=== PATIENT | male | born 1975 | race Caucasian/White ===

== ENCOUNTER 2024-03-16 23:48 | Emergency (ER) | payer MEDICAID, SELFPAY ==
[2024-03-16 23:55] VITALS: BP 199/137; PULSE 88; RESP 18; TEMP 37.3; O2SAT 97
[2024-03-17 00:48] VITALS: BP 194/133; PULSE 90
[2024-03-17] MEDS: hydrALAZINE HCL 25 MG TABLET PO ×2 (00:48→02:02)
--- NOTE | 2024-03-17 00:54 | EDNOTE_ITS ---
ED Medical Clearance RME/HPI General Chief complaint: Medical Clearance Stated complaint: CLEARANCE Time Seen by Provider: 03/17/24 00:04 Source: patient and police Arrival date/time: 03/16/24 23:48 Mode of arrival: ambulatory Limitations: no limitations RME / HPI RME / HPI Narrative: Dr. Garcia?s Main ED Evaluation: This is a 48-year-old male with a history of hypertension, presenting for medical clearance prior to incarceration. He was brought in by law enforcement following a blood pressure reading of 198/122 at the halfway. He admits that he is not compliant with his medications. The patient is known to this facility for prior visits related to his elevated hypertension. He denies any other associated symptoms, such as chest pain, shortness of breath, or headache, and has no other current medical complaints. Related Information Home Medications ?Medication ?Instructions ?Recorded ?Confirmed No Known Home Medications 01/17/23 01/17/23 Allergies Allergy/AdvReac Type Severity Reaction Status Date / Time No Known Allergies Allergy Verified 01/17/23 11:33 Review of Systems Review of Systems Systems Reviewed: All systems reviewed, normal except as documented Past Medical History Past Medical History NEUROLOGIC: Negative Neurological Disorders CARDIAC: Positive Hypertension; Negative Cardiac Disorders or Congestive Heart Failure RESPIRATORY: Negative Chronic Obstructive Pulmonary Disease (COPD) GASTROINTESTINAL: Negative Gastrointestinal Disorders GENITOURINARY: Negative Genitourinary Disorders or Renal Disease MUSCULOSKELETAL: Negative Musculoskeletal Disorders ENDOCRINE: Negative Endocrine Disorders, Diabetes Mellitus Type 1 or Diabetes Mellitus Type 2 HEMATOLOGIC: Negative Blood Disorders OTHER HISTORY: Negative Autoimmune Disease Surgical History SURGICAL: Negative Cardiac Surgery, Endocrine Surgery, Ear Surgery, Abdominal Surgery or Neurologic Surgery Social History SMOKING STATUS: Never smoker ED Exam Narrative Physical exam: GENERAL APPEARANCE: AxOx4, generally well-appearing, no acute distress. The patient exhibits a childlike demeanor during the evaluation. HEENT: NC, AT. MMM. EOMI, clear conjunctiva, oropharynx clear. NECK: Supple without lymphadenopathy. No stiffness or restricted ROM. HEART: Normal rate and regular rhythm, normal S1/S1, no m/r/g LUNGS: CTAB, moving air well. No crackles or wheezes are heard. ABDOMEN: Soft, nontender, nondistended with good bowel sounds heard. BACK: No midline C/T/L spine pain or deformity, No CVAT, no obvious deformity. EXTREMITIES: Without cyanosis, clubbing or edema. MUSCULOSKELETAL: FROM of all major joints, no chest tenderness NEUROLOGICAL: Grossly nonfocal. Alert and oriented, moving all 4 extremities. CN not formally tested but appear grossly intact. Observed to ambulate with normal gait. Skin: Warm and dry without any rash. General Limitations: Present no limitations Course Quality Measures none Orders Category Date Time Status hydrALAZINE HCL [Apresoline] Med 03/17/24 00:43 Discontinued 25 mg PO X1 ONE hydrALAZINE HCL [Apresoline] Med 03/17/24 01:58 Discontinued 25 mg PO X1 ONE Reevaluation(s) Reevaluation #1: Patient admits to last use of methamphetamine approximately 2 months ago. Time: 01:55 Vital Signs Vital signs: Vital Signs Temperature 99.2 F 03/16/24 23:55 Pulse Rate 88 03/16/24 23:55 Respiratory Rate 18 03/16/24 23:55 Blood Pressure 199/137 H 03/16/24 23:55 Pulse Oximetry (%) 97 03/16/24 23:55 Oxygen Delivery Method Room Air 03/16/24 23:55 Medical Clearance MDM Narrative MDM Narrative:: Scribe Attestation: ITrin[place] am scribing for and in the presence of Dr. Garcia. Provider Notation: Although this document has been carefully reviewed, there may still be some phonetic and other typographical errors. These errors are purely grammatical due to imperfections in the software program and should not be construed in any way to compromise the substance of the patient's medical care during this visit. Patient data External records reviewed:: [facility] previous records Clinical information provided by:: patient and law enforcement Social determinants that could affect healthcare access:: none (incarcerated) Patient has the following chronic illnesses:: See PMH above How is presenting disease/condition affected by chronic disease/condition?: exacerbated by Evaluation data The following diagnostics were reviewed and interpreted by me:: other (specify) (none) Lab and/or radiology exams considered but not ordered:: None Interpretation Summary: None Medications / Prescriptions Medications or Prescriptions considered but not ordered:: None Medication administrations:: Medication Administration History Discontinued Medications Hydralazine HCl (Hydralazine Hcl 25 Mg Tablet) 25 mg PO X1 ONE Stop: 03/17/24 00:44 Last Admin: 03/17/24 00:48 Dose: 25 mg Documented By: MEE Hydralazine HCl (Hydralazine Hcl 25 Mg Tablet) 25 mg PO X1 ONE Stop: 03/17/24 01:59 Last Admin: 03/17/24 02:02 Dose: 25 mg Documented By: MEE As above Consultations Consultation(s) initiated? (list below): No Diagnosis Medical Clearance Differential Diagnosis: other (Hypertension, Hypertensive Urgency, Hypertensive Emergency) Most likely diagnosis given after review of the tests above:: Hypertension Admission Indicated Admission indicated?: not indicated Admission Request Was there a request for admission?: No Disposition Plan Disposition Plan: Discharge Discharge Attestation Discharge Attestation: The patient and all family members were given an opportunity to ask questions and understood the discharge instructions. Discharge instructions specifically effects, indications for sooner follow up or return to the emergency department, and the expected course of current diagnosis. Patient condition: Stable Discharge Plan Plan Patient Disposition: HOME (Self Care) Prescriptions/Referrals Prescriptions/Med Rec: No Action No Known Home Medications Referrals: [facility] [Provider Group] - In 1 week [facility] [Provider Group] - In 1 week [facility] [Outside] - In 1 week No Primary/Family,Physician [Primary Care Provider] - In 1 week Problem List Clinical Impression: Hypertension Patient/Caregiver Discharge Instructions Education Materials: ED Hypertension, Established Additional Instructions: It would be important to establish a primary care provider to further manage her blood pressure. Resources are provided on your discharge papers. Please establish first visit as soon as possible. You can return to the emergency department if you notice any issues or concerns. Print Language: Jordanian Stand Alone Forms: Cynthia Award Info., Patient Portal Info Letter
[2024-03-17 02:02] VITALS: BP 179/100; PULSE 189
[2024-03-17 02:09] VITALS: BP 179/100; PULSE 86; RESP 18; O2SAT 94
[2024-03-17 02:54] VITALS: BP 154/101; PULSE 88; RESP 18; TEMP 36.6; O2SAT 98
== END 2024-03-17 02:55 | disposition home or self-care (01) ==
PROVIDERS: Emergency Provider Emergency Medicine
DX: Z02.89 Encounter for other administrative examinations (principal); I10 Essential (primary) hypertension
CPT/HCPCS: 99282; A9270

== ENCOUNTER 2024-04-17 10:40 | Inpatient (IN) | payer MEDICAID, SELFPAY ==
[2024-04-17] VITALS (10 sets, daily range): BP systolic 133–205; BP diastolic 91–129; PULSE 63–80; RESP 16–97; TEMP 36.6–36.9; O2SAT 97–100; BMI 30.6
--- NOTE | 2024-04-17 11:01 | EKG_ITS ---
[facility] Test Date: 2024-04-17 Pat Name: AP DE LA ROSA Department: Room: - Gender: Male [employer]: : 1975 Requested By: Elías Garcia Order Number: [id number] Reading MD: Elías Garcia Measurements Intervals [place] Rate: 69 P: 54 DE: 151 QRS: -5 QRSD: 101 T: 179 QT: 417 QTc: 450 Interpretive Statements SINUS RHYTHM POSSIBLE LEFT ATRIAL ENLARGEMENT [-0.1mV P-WAVE IN V1/V2] LEFT VENTRICULAR HYPERTROPHY AND ST-T CHANGE [VOLTAGE CRITERIA PLUS ST/T ABNORMALITY] Compared to ECG 07/31/2023 10:14:00 No significant changes /store/S0/[id number]/ecg/[id number].pdf
--- NOTE | 2024-04-17 11:17 | PD.EDAMS ---
Altered Mental Status RME/HPI General Chief Complaint: Altered Mental Status Stated Complaint: HEART PROBLEMS Time Seen by Provider: 04/17/24 11:26 Arrival date/time: 04/17/24 10:40 Limitations: no limitations RME / HPI RME / HPI narrative: DR. ESCOBAR MAIN ED EVALUATION: 48 year old male with past medical history significant for hypertension and methamphetamine abuse presents to the Emergency Department [facility] with complaints of heart problems and altered mental status. Patient does not remember anything but denies any headache or chest pain. Limited history due to altered mentation. Related Data Home Medications ?Medication ?Instructions ?Recorded ?Confirmed No Known Home Medications 01/17/23 01/17/23 Allergies Allergy/AdvReac Type Severity Reaction Status Date / Time No Known Allergies Allergy Verified 01/17/23 11:33 Review of Systems Review of Systems ROS Unobtainable: unobtainable due to mental status Past Medical History Past Medical History CARDIAC: Positive Hypertension Social History SMOKING STATUS: Former smoker SUBSTANCE USE: methamphetamine ALCOHOL: Never ED Exam General Limitations: Present no limitations General appearance: Present alert and other (patient is alert awake, but confused in his answers, in no distress, lying down comfortably. Patient has good eye contact. Patient is cooperative.) Head Head exam: Present atraumatic, normocephalic and normal inspection Eye Eye exam: Present normal appearance, PERRL and EOMI ENT ENT exam: Present normal exam, normal oropharynx and mucous membranes moist Neck Neck exam: Present normal inspection, full ROM and trachea midline Chest Chest inspection: Present normal inspection and symmetric chest wall rise Respiratory Respiratory exam: Present normal lung sounds bilaterally Cardiovascular Cardiovascular exam: Present regular rate, normal rhythm and normal heart sounds Abdominal Exam Abdominal exam: Present soft and normal bowel sounds Extremities Exam Extremities exam: Present normal inspection and full ROM Back Exam Back exam: Present normal inspection and full ROM Neurological Exam Neurological exam: Present alert, oriented X3 and CN II-XII intact Psychiatric Psychiatric exam: Present normal affect and normal mood Skin Skin exam: Present warm, dry, intact and normal color Course Course Course Narrative: 1800: Patient was signed out to Dr. Gordon. Past medical, surgical, social and family history reviewed. Vitals and home medications reviewed. Results and treatment plan discussed. They will assume the care of the patient at this time and will follow the patient, pending LP results. Quality Measures none Orders Category Date Time Status EKG (ED ONLY) *Do not use* NOW Care 04/17/24 11:01 Completed Lumbar Puncture set up NOW Care 04/17/24 14:[address] head/brain wo con Stat Exams 04/17/24 11:22 Completed EKG (ED Only) Stat Exams 04/17/24 11:01 Draft ABG [Arterial Blood Gas] Stat Lab 04/17/24 15:26 Completed Alcohol, Blood Medical Stat Lab 04/17/24 11:41 Completed CBC Stat Lab 04/17/24 11:41 Completed CMP [Comprehensive Metabolic Panel] Stat Lab 04/17/24 11:41 Completed CSF Culture and Gram Stain Stat Lab 04/17/24 18:00 Results Cell Count w Diff, CSF Stat Lab 04/17/24 18:00 Completed Drug Screen,Urine Stat Lab 04/17/24 13:09 Completed Glucose,CSF Stat Lab 04/17/24 18:00 Completed Lactate (Lactic Acid) Stat Lab 04/17/24 11:41 Completed Procalcitonin Stat Lab 04/17/24 11:41 Completed Protein Total,CSF Stat Lab 04/17/24 18:00 Completed Urinalysis Stat Lab 04/17/24 13:09 Completed Labetalol IV [Trandate IV] Med 04/17/24 12:16 Discontinued 10 mg IVP X1 ONE Labetalol IV [Trandate IV] Med 04/17/24 11:21 Discontinued 20 mg IVP X1 ONE Vital Signs Vital signs: Vital Signs Temperature 97.8 F 04/17/24 10:59 Pulse Rate 72 04/17/24 10:59 Respiratory Rate 16 04/17/24 10:59 Blood Pressure 205/106 H 04/17/24 10:59 Pulse Oximetry (%) 99 04/17/24 10:59 Oxygen Delivery Method Room Air 04/17/24 10:59 Procedures -ED EKG Interpretation #1: Date of EK04/17/24 Time of EK:03 Rate: 69 Interpretation: Interpreted by me Additional EKG comment: sinus rhythm, rate 69, normal intervals, normal axis, lateral T wave inversions Altered Mental Status MDM Narrative MDM Narrative:: I, Tereza Taylor am scribing for and in the presence of Dr. Escobar. Patient data External records reviewed:: [facility] previous records (Reviewed last ED visit dated 03/17/24, discharged with the following: Hypertension) and EMS form Clinical information provided by:: patient and EMS Social determinants that could affect healthcare access:: substance use (methamphetamine) Patient has the following chronic illnesses:: Hypertension How is presenting disease/condition affected by chronic disease/condition?: exacerbated by Evaluation data The following diagnostics were reviewed and interpreted by me:: lab results, radiology exam(s) and EKG tracing(s) Lab and/or radiology exams considered but not ordered:: none Interpretation Summary: Procedure(s): CT head/brain wo con Accession Number(s): [id number] cc: Elías Escobar MD; Nathan Lorenzo MD; NO PRIMARY/FAMILY,PHYSICIAN~ Examination: CT brain head without contrast. 2-D sagittal coronal reconstructions Date and time of exam:April 17, 2024 1123 hours INDICATIONS: Altered mental status today COMPARISON: January 17, 2023 CTDI: vol (mGy):58.7 DLP: (mGycm):1180 Technique: Multiple CT axial sections of the brain have been obtained, 5 mm slice thickness. Contrast has not been administered. 2-D sagittal, coronal reconstructions have been obtained Low dose protocols were performed. One or more of the following dose reduction techniques were used; automated exposure control, adjustment of the mA and/or KV according to patient size, use of iterative reconstruction technique. Findings: No significant ventricular enlargement. Suspicious for 14 mm area of acute edema in the left parietal lobe axial image 19 Intra-axial or extra-axial hemorrhage density is not seen. No mass effect or midline shift Basal cisterns are not remarkable. Fourth ventricle is midline. Cranial vault intact. Impression: Negative for acute hemorrhage, mass effect or midline shift Suspicious for acute infarct in the left parietal white matter axial image 19 Recommend brain MRI MRA stroke protocol follow-up Dictated By: Nathan Lorenzo MD Medications / Prescriptions Medications or Prescriptions considered but not ordered:: none Medication administrations:: Medication Administration History Acetaminophen (Acetaminophen 325 Mg Tablet) 650 mg PO Q6HR PRN PRN Reason: Mild Pain (1-3) & Fever >101 Stop: 05/17/24 21:18 Aspirin (Aspirin Ec 81 Mg Tabec) 81 mg PO QDAY GUS Stop: 05/18/24 08:59 Heparin Sodium (Porcine) (Heparin Sod Inj 5000 Unit/Ml Vial) 5,000 unit SC Q12H GUS Stop: 05/02/24 08:59 Ondansetron HCl (Ondansetron Inj 2 Mg/Ml Inj 2 Ml) 4 mg IV Q6H PRN; Protocol PRN Reason: NAUSEA OR VOMITING Stop: 05/17/24 19:38 Pantoprazole Sodium (Pantoprazole Inj 40 Mg Vial) 40 mg IVP QDAY REPLACED BY [facility] Stop: 05/18/24 08:59 Discontinued Medications Aspirin (Aspirin 325 Mg Tablet) 325 mg PO X1 ONE Stop: 04/17/24 19:49 Last Admin: 04/17/24 20:07 Dose: 325 mg Documented By: MATEUSZ Labetalol HCl (Labetalol Inj 5 Mg/Ml Vial 20 Ml) 20 mg IVP X1 ONE Stop: 04/17/24 11:22 Last Admin: 04/17/24 11:41 Dose: 20 mg Documented By: MATEUSZ Labetalol HCl (Labetalol Inj 5 Mg/Ml Vial 20 Ml) 10 mg IVP X1 ONE Stop: 04/17/24 12:17 Last Admin: 04/17/24 12:35 Dose: 10 mg Documented By: MATEUSZ see above Consultations Consultation(s) initiated? (list below): Yes Consultation #1 (Physician, Specialty, Details): Discussed test HPI, PMHx, lab, radiology results and/or management with Dr. Puckett. Discussed the left parietal ischemic infarct but after reviewing symptoms and CT findings, the lesions are not consistent with exam. Dr. Puckett recommends further testing including a lumbar puncture. Then, if nothing we can admit for observation and order a MRI. Time: 14:00 Diagnosis Differential diagnosis altered mental status: alcoholic intoxication, altered mental status and other (hypertensive urgency, encephalopathy, drug intoxication) Most likely diagnosis given after review of the tests above:: No official diagnoses at this time, still pending diagnostic tests. Patient signout to the shift boss provider. Admission Indicated Admission indicated?: indicated Explain why admission is indicated or not indicated:: Pending LP results. Admission Request Was there a request for admission?: No Disposition Plan Disposition Plan: other (specify) (Patient signout to the shift boss provider, pending LP results. ) Discharge Plan Plan Patient Disposition: Admit Acute Care w/in Hospital Problem List Clinical Impression: Encephalopathy
--- NOTE | 2024-04-17 11:22 | XR_ITS ---
Examination: CT brain head without contrast. 2-D sagittal coronal reconstructions Date and time of exam:April 17, 2024 1123 hours INDICATIONS: Altered mental status today COMPARISON: January 17, 2023 CTDI: vol (mGy):58.7 DLP: (mGycm):1180 Technique: Multiple CT axial sections of the brain have been obtained, 5 mm slice thickness. Contrast has not been administered. 2-D sagittal, coronal reconstructions have been obtained Low dose protocols were performed. One or more of the following dose reduction techniques were used; automated exposure control, adjustment of the mA and/or KV according to patient size, use of iterative reconstruction technique. Findings: No significant ventricular enlargement. Suspicious for 14 mm area of acute edema in the left parietal lobe axial image 19 Intra-axial or extra-axial hemorrhage density is not seen. No mass effect or midline shift Basal cisterns are not remarkable. Fourth ventricle is midline. Cranial vault intact. Impression: Negative for acute hemorrhage, mass effect or midline shift Suspicious for acute infarct in the left parietal white matter axial image 19 Recommend brain MRI MRA stroke protocol follow-up
[2024-04-17] MEDS: LABETALOL INJ 5 MG/ML VIAL 20 ML 20 MG IVP (11:41)
[2024-04-17 11:54] LABS: Basophils # (Auto) 0.1 Thou/mm3 (0.0-0.2); Basophils % (Auto) 1 % (0-2.5); Eosinophils # (Auto) 0.5 Thou/mm3 (0.0-0.5); Eosinophils % (Auto) 6 % (0-10); Hematocrit 43.2 % (41.0-53.0); Hemoglobin 14.7 g/dL (13.5-16.0); Immature Granulocytes % (Auto) 0 % (0-0); Immature Granulocytes Auto 0.02 Thou/mm3 (0.00-0.00); Lymphocytes # (Auto) 2.2 Thou/mm3 (1.0-4.8); Lymphocytes % (Auto) 25 % (10-50); Mean Corpuscular Hemoglobin 27.8 pg (25.0-35.0); Mean Corpuscular Volume 82 fL (80-100); Monocytes # (Auto) 0.6 Thou/mm3 (0.0-0.8); Monocytes % (Auto) 7 % (0-12); Neutrophils # (Auto) 5.3 Thou/mm3 (1.8-7.7); Neutrophils % (Auto) 61 % (37-80); Nucleated Red Blood Cell % 0 /100 WBC (0); Platelet Count 290 Thou/mm3 (140-440); RDW Standard Deviation 37.7 fL (35.1-43.9); Red Blood Count 5.29 Miln/mm3 (4.50-5.90); White Blood Count 8.7 Thou/mm3 (3.8-10.6)
[2024-04-17 12:33] LABS: Alanine Aminotransferase 14 U/L (10-49); Albumin, Serum 4.3 gm/dL (3.5-5.0); Albumin/Globulin Ratio 1.4 (1.2-2.2); Alcohol, Blood Medical < 3.0 mg/dL (0-10.0); Alkaline Phosphatase 106 U/L (46-116); Anion Gap 9 (7-16); Aspartate Amino Transferase 22 U/L (0-34); BUN/Creatinine Ratio 16 Ratio (12-20); Bilirubin,Total 0.7 mg/dL (0.3-1.2); Blood Urea Nitrogen 21 mg/dL (9-23); Calcium 9.5 mg/dL (8.3-10.6); Calcium (Corrected) 9.5 mg/dL (8.5-10.1); Carbon Dioxide 29.2 mMol/L (20.0-31.0); Chloride 100 mMol/L (98-107); Creatinine (Component) 1.3 mg/dL (0.6-1.3); Estimated Creatinine Clearance 90.4 mL/min (>60); Globulin 3.1 gm/dL (2.3-3.5); Glucose 88 mg/dL (74-106); Osmolality,Calculated 277 (275-295); Potassium 3.5 mMol/L (3.4-5.1); Procalcitonin 0.09 ng/ml (0.0-0.49); Sodium 138 mMol/L (136-145); Total Protein 7.4 gm/dL (5.7-8.2); eGFR > 60 See Note
[2024-04-17] MEDS: LABETALOL INJ 5 MG/ML VIAL 20 ML 10 MG IVP (12:35)
[2024-04-17 13:12] LABS: Collection Type, Urine Clean Catch
[2024-04-17 13:29] LABS: Bilirubin,Urine Negative (Negative); Blood,Urine Negative (Negative); Clarity,Urine Clear (Clear/Hazy); Color,Urine Yellow (Lt Yel-Yel); Glucose, Urine Negative (Negative); Hyaline Casts,Urine < 1 /hpf (0-1); Ketones,Urine Negative (Negative); Leukocyte Esterase,Urine Positive (Negative); Nitrite,Urine Negative (Negative); Protein,Urine Trace (Neg - Trace); RBC,Urine 3 /hpf (0-3); Specific Gravity,Urine 1.023 (1.001-1.035); Squamous Epithelial Cell,Urine < 1 /hpf (0-5); Urobilinogen,Urine Negative mg/dL (0.0-1.0); WBC,Urine 22 /hpf (0-5)
[2024-04-17 13:38] LABS: Amphetamine/Methamp Scrn,U Negative (Negative); Barbiturate Screen,Urine Negative (Negative); Benzodiazepines Screen,Urine Negative (Negative); Benzoylecgonine Screen, Ur Negative (Negative); Fentanyl Screen,Urine Negative (Negative); Opiate Screen,Urine Negative (Negative); THC Screen,Urine Positive (Negative)
[2024-04-17 15:32] LABS: Base Excess 4 (-3-3); HCO3 29 mEq/L (20-26); Inspired Oxygen, FIO2 21 %; O2 Saturation 94 % (91-98); PCO2 44 mmHg (32.0-48.0); PO2 65 mmHg (83-108); Puncture Site Left Radial; pH, Arterial 7.43 (7.35-7.45)
[2024-04-17 15:33] LABS: Allen Test Not Performed
--- NOTE | 2024-04-17 17:16 | PD.EDADDENDU ---
Emergency Room Addendum Addendum Narrative: Procedures -ED Lumbar Puncture Time Out Performed: Yes Patient Position: right lateral decubitus Skin Prep: Povidone-Iodine 1% Local Anesthetic: lidocaine 1% Amount of anesthesia used (mL): 4 Interspace Used: L4-L5 Opening Pressure (cmH20): 16 Fluid Initially Obtained: clear (very slight blood-tinge) Additional Comments: Surgical cap, mask, and sterile gloves were worn throughout the procedure. The patient was placed in the right lateral decubitus position with help from medical staff. The area was cleansed and draped in usual sterile fashion using iodine scrub. Anesthesia was achieved with 1% lidocaine. A 20-gauge 3.5-inch spinal needle was placed in the L4-L5 lumbar interspace. On the 2nd attempt, clear with very slightly blood tinged colored cerebral spinal fluid was obtained. The opening pressure was 16 cm H20. CSF was collected into 4 tubes. These were sent for the usual tests, including 1 tube to be held for further analysis if needed. A sterile bandaid was placed over the puncture site. The patient had no immediate complications and tolerated the procedure well. Estimated blood loss was 1 ml. Procedure was completed under the supervision of the ED attending, Dr. Garcia. Marlin Boo PGY-2 Internal Medicine
--- NOTE | 2024-04-17 18:00 | PD.EDADDENDU ---
Emergency Room Addendum Addendum Narrative: 1800: Care assumed from Dr. Garcia, the previous shift emergency physician. Past medical, surgical, social and family history reviewed. Vitals and home medications reviewed. Results and treatment plan discussed. I will assume the care of the patient at this time and will follow the patient, pending LP results. Please refer to the emergency department record for history and examination from initial visit. 1950: Discussed case with [Dr. Monroe] from Hospitalist service regarding admission. Discussed patients ED course, exam findings, labs, and radiology results. The Hospitalist [agrees] to accept the patient for admission.
[2024-04-17 19:07] LABS: Glucose,CSF 67 mg/dL (40-70); Protein Total,CSF 86 mg/dL (8-32)
[2024-04-17 19:39] LABS: CSF Red Blood Cell 0 /cmm; CSF White Blood Cell 1 /cmm
[2024-04-17 19:43] LABS: CSF Cell Count Tube # Tube # 4
[2024-04-17 19:44] LABS: CSF Color Colorless (Colorless); CSF Polynuclear WBC 0 %; CSF, Appearance Clear (Clear)
[2024-04-17 19:45] LABS: CSF Gram Stain Alert Gram Stain Completed
--- NOTE | 2024-04-17 19:49 | ESHP_ITS ---
Documentation for date of: 04/17/24 [facility] History of Present Illness Chief complaint: Altered mental status History of present illness: Mr. Cheek is a 48-year-old male with past medical history of hypertension and methamphetamine use who was BIBA to [facility] on 04/17/2024 with chief complaint of altered mental status. On initial evaluation in ED patient reported he does not remember anything and was not able to provide much history. On presentation case was discussed with neurologist who recommended lumbar puncture and MRI brain. Currently at bedside patient alert and oriented x 3, able to recall events leading up to hospitalization, complains of some numbness in the right leg, otherwise has no current complaints. CT scan of head in ED showed possible acute infarct in left parietal white matter, was negative for acute hemorrhage mass effect or midline shift. ED Course: ED Vitals: On presentation in ED BP 205/106, pulse 72, RR 16, temp 97.8, O2 sat 99 on room air ED Labs: ED labs significant for RBC 5.29, hemoglobin 14.7, WBC 8.7, platelet 2 90,000 ABG pH 7.43, pCO2 44 and CMP shows sodium 138, potassium 3.5, chloride 100, venous CO2 29.2 BUN 21, creatinine 1.3, GFR more than 60 lactate 1.0, glucose 88, calcium 9.5 AST 22, ALT 14, alk phos 106, Pro-Ihsan 0.09 UA negative for bacteria, 22 WBC, RBC 3, leukocyte esterase positive. CSF appearance clear, colorless, WBC 1 total protein 86, urine tox screen positive for marijuana. ED Imaging:EKG shows sinus rhythm, QTc 450.CT scan of head suspicious for acute infarct left parietal white matter, negative for acute hemorrhage, mass effect or midline shift. ED Treatment:Patient was given labetalol 20 mg IVP x 1, labetalol 10 mg IVP x 1 in ED Review of Systems Review of Systems Narrative Review of Systems: ROS: -CONSTITUTIONAL: Denies weight loss, fever and chills. -HEENT: Denies changes in vision and hearing. -RESPIRATORY: Denies SOB and cough. -CV: Denies palpitations and Chest Pain. -GI: Denies abdominal pain, nausea, vomiting,constipation and diarrhea. -: Denies dysuria and urinary frequency. -MSK: Denies myalgia and joint pain. -SKIN: Denies rash and pruritus. Positive for paresthesia right foot. -NEUROLOGICAL: Denies headache and syncope. -PSYCHIATRIC: Denies recent changes in mood. Denies anxiety and depression. Past Medical History Past Medical History Comments PMH COMMENT: PMH: Positive for hypertension, methamphetamine use PSHx: Denies any surgical history Allergies: No known allergies Social history: -Smoking: Positive for smoking. -Alcohol Use: Denies -Illicit Drug Use: Positive for THC/marijuana use, denies methamphetamine/heroin/fentanyl use currently. Family History: Denies any pertinent family history. Exam Vital Signs Temp Pulse Resp BP Pulse Ox O2 Del Method 97.8 F 74 16 133/91 H 97 Room Air 04/17/24 18:20 04/17/24 18:20 04/17/24 18:20 04/17/24 18:20 04/17/24 18:20 04/17/24 18:20 Narrative Exam Physical Exam General: Awake and in no acute distress. Conversational and non-toxic appearing. HEENT: Normocephalic, atraumatic, mucous membranes moist. Heart: Regular rate and rhythm, no murmurs. Lungs: Clear to auscultation with no wheezing or crackles. Abdomen: Soft, nondistended, nontender, positive bowel sounds. ?No guarding or rebound tenderness. Neurologic: Alert and oriented x3, no gross neurological deficit, and patient able to move all 4 extremities. Extremities: No edema. Skin: No rash or ecchymoses. Results: Labs 04/17/24 11:41 04/17/24 11:41 Labs: Short CBC 04/17/24 Range/Units 11:41 WBC 8.7 (3.8-10.6) Thou/mm3 Hgb 14.7 (13.5-16.0) g/dL Hct 43.2 (41.0-53.0) % Plt Count 290 (140-440) Thou/mm3 BMP 04/17/24 11:41 Sodium 138 Potassium 3.5 Chloride 100 Carbon Dioxide 29.2 BUN 21 Creatinine 1.3 Glucose 88 Calcium 9.5 Liver Function 04/17/24 Range/Units 11:41 Total Bilirubin 0.7 (0.3-1.2) mg/dL AST 22 (0-34) U/L ALT 14 (10-49) U/L Alkaline Phosphatase 106 (46-116) U/L Albumin 4.3 (3.5-5.0) gm/dL Urine 04/17/24 Range/Units 13:09 Urine Color Yellow (Lt Yel-Yel) Urine Clarity Clear (Clear/Hazy) Urine pH 6.0 (5.0-7.0) Ur Specific [place] 1.023 (1.001-1.035) Urine Protein Trace (Neg - Trace) Urine Glucose (UA) Negative (Negative) ABG Interpretation ABG results: 04/17/24 15:26 ABG pH 7.43 ABG pCO2 44 ABG pO2 65 L ABG HCO3 29 H ABG O2 Saturation 94 ABG Base Excess 4 H Quality Measures Quality Measures none Medications Home Medications and Allergies Home Medications ?Medication ?Instructions ?Recorded ?Confirmed ?Type No Known Home Medications 01/17/2312/29 History Allergies Allergy/AdvReac Type Severity Reaction Status Date / Time No Known Allergies Allergy Verified 01/17/23 11:33 Visit Medications Aspirin (Aspirin 325 Mg Tablet) 325 mg PO X1 ONE Stop: 04/17/24 19:49 Aspirin (Aspirin Ec 81 Mg Tabec) 81 mg PO QDAY [facility] Stop: 05/18/24 08:59 Heparin Sodium (Porcine) (Heparin Sod Inj 5000 Unit/Ml Vial) 5,000 unit SC Q12H GUS Stop: 05/02/24 08:59 Ondansetron HCl (Ondansetron Inj 2 Mg/Ml Inj 2 Ml) 4 mg IV Q6H PRN; Protocol PRN Reason: NAUSEA OR VOMITING Stop: 05/17/24 19:38 Pantoprazole Sodium (Pantoprazole Inj 40 Mg Vial) 40 mg IVP QDAY GUS Stop: 05/18/24 08:59 Discontinued Medications Labetalol HCl (Labetalol Inj 5 Mg/Ml Vial 20 Ml) 20 mg IVP X1 ONE Stop: 04/17/24 11:22 Last Admin: 04/17/24 11:41 Dose: 20 mg Labetalol HCl (Labetalol Inj 5 Mg/Ml Vial 20 Ml) 10 mg IVP X1 ONE Stop: 04/17/24 12:17 Last Admin: 04/17/24 12:35 Dose: 10 mg Assessment & Plan Plan Assessment and Plan: Summary: Mr. Cheek is a 48-year-old male with past medical history of hypertension and methamphetamine use who was BIBA to [facility] on 04/17/2024 with chief complaint of altered mental status. CT scan of head suspicious for acute infarct left parietal white matter, patient admitted for CVA workup. #CVA workup #Acute encephalopathy, resolved Patient BIBA for altered mental status, neurology consulted in ED recommended LP and MRI because of underlying CT findings of suspicious acute infarct left parietal white matter. LP insignificant for signs of infection, elevated protein noted on lumbar puncture. On evaluation in ED patient alert and oriented x 3, does have history of methamphetamine use, denies any alcohol use currently. Urine tox screen positive for THC, negative for methamphetamine. Blood pressure 205/106 on presentation, was given labetalol in ED, possible hypertensive emergency causing acute encephalopathy. Patient only complains of paresthesia of right leg currently. Plan: -Aspirin 325 x 1, aspirin 81 mg daily -Ordered MR stroke protocol -Consider ordering echo with bubble study if MR positive for stroke -Consulted neurology, appreciate recommendations -N.p.o., pending nurse swallow screen -Ordered lipid panel, TSH, A1c, follow in a.m. -Head of bed elevated, keep patient euthermic and euglycemic -Neurocheck every 4 hours -Referral to speech and physical therapy -Permissive hypertension for 24 hours #Hypertension Pending med reconciliation, allow permissive hypertension for 24 hours Will consider labetalol for SBP/DBP > 220/120 #Nicotine dependence #THC dependence #History of methamphetamine use Patient denies meth use currently, reports smoking every day, reports marijuana use Consider nicotine patches as needed, smoking cessation education DVT prophylaxis: Heparin every 12 hours GI prophylaxis: IV Protonix Diet: N.p.o., pending swallow eval Lines: Peripheral IV Code status: Full code Case discussed with Attending Dr. Monroe. Fredo Onofre PGY1 Disclaimer: This note was dictated by speech recognition. Minor errors in wire coiner may be present due to voice recognition software. Attending Provider Attestation/Addendum Pt was evaluated and plan formulated together with the housestaff team. I have reviewed the residents note above and agree with most of its content. Please refer to the residents note for additional details.
[2024-04-17] MEDS: Aspirin 325 MG TABLET PO (20:07)
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
[2024-04-18] VITALS (13 sets, daily range): BP systolic 154–187; BP diastolic 102–114; PULSE 61–98; RESP 15–96; TEMP 36.1–37.1; O2SAT 96–98
[2024-04-18 05:27] LABS: Basophils # (Auto) 0.1 Thou/mm3 (0.0-0.2); Basophils % (Auto) 1 % (0-2.5); Eosinophils # (Auto) 0.7 Thou/mm3 (0.0-0.5); Eosinophils % (Auto) 8 % (0-10); Hematocrit 41.6 % (41.0-53.0); Hemoglobin 14.1 g/dL (13.5-16.0); Immature Granulocytes % (Auto) 0 % (0-0); Immature Granulocytes Auto 0.02 Thou/mm3 (0.00-0.00); Lymphocytes # (Auto) 2.4 Thou/mm3 (1.0-4.8); Lymphocytes % (Auto) 30 % (10-50); Mean Corpuscular HGB Conc 33.9 g/dl (31.0-37.0); Mean Corpuscular Volume 83 fL (80-100); Monocytes # (Auto) 0.7 Thou/mm3 (0.0-0.8); Monocytes % (Auto) 9 % (0-12); Neutrophils # (Auto) 4.3 Thou/mm3 (1.8-7.7); Neutrophils % (Auto) 53 % (37-80); Nucleated Red Blood Cell % 0 /100 WBC (0); Platelet Count 291 Thou/mm3 (140-440); RDW Standard Deviation 38.4 fL (35.1-43.9); Red Blood Count 5.04 Miln/mm3 (4.50-5.90); White Blood Count 8.1 Thou/mm3 (3.8-10.6)
[2024-04-18 06:16] LABS: Glucose Estimated Average 108 mg/dL (80-131); Hemoglobin A1C 5.4 % Hgb (4.8-6.0)
[2024-04-18 06:42] LABS: Alanine Aminotransferase 11 U/L (10-49); Albumin/Globulin Ratio 1.5 (1.2-2.2); Alkaline Phosphatase 96 U/L (46-116); Anion Gap 8 (7-16); Aspartate Amino Transferase 16 U/L (0-34); BUN/Creatinine Ratio 14 Ratio (12-20); Bilirubin,Total 0.9 mg/dL (0.3-1.2); Blood Urea Nitrogen 18 mg/dL (9-23); Calcium 9.3 mg/dL (8.3-10.6); Calcium (Corrected) 9.3 mg/dL (8.5-10.1); Carbon Dioxide 27.2 mMol/L (20.0-31.0); Cardiac Risk Estimate 3.6 RATIO (4.0-6.7); Chloride 103 mMol/L (98-107); Cholesterol 206 mg/dL (132-200); Creatinine (Component) 1.3 mg/dL (0.6-1.3); Estimated Creatinine Clearance 90.4 mL/min (>60); Globulin 2.7 gm/dL (2.3-3.5); Glucose 107 mg/dL (74-106); HDL Cholesterol 57 mg/dL (40-60); LDL Cholesterol,Calculated 125 mg/dL (0-130); Magnesium 2.2 mg/dL (1.6-2.6); Osmolality,Calculated 277 (275-295); Potassium 2.9 mMol/L (3.4-5.1); Sodium 138 mMol/L (136-145); Thyroid Stimulating Hormone 1.85 uIU/mL (0.55-4.78); Total Protein 6.7 gm/dL (5.7-8.2); Triglycerides 118 mg/dL (30-150); eGFR > 60 See Note
--- NOTE | 2024-04-18 08:22 | PCS.ST ---
Swallow Evaluation completed. See report for details. Continue current diet.
[2024-04-18] MEDS: POTASSIUM CHL 10 mEq IVPB 10 MEQ/100 ML BAG 50 MEQ IV ×3 (08:49→16:24)
[2024-04-18] MEDS: PANTOPRAZOLE INJ 40 MG VIAL IVP (08:50)
[2024-04-18] MEDS: HEPARIN SOD INJ 5000 UNIT/ML VIAL SC ×2 (08:50→20:36)
[2024-04-18] MEDS: ASPIRIN EC 81 MG TABEC PO (08:50)
--- NOTE | 2024-04-18 09:45 | ESPR_ITS ---
<Statement entered by Coral Payan MD - 04/18/24 16:02> I discussed with and supervised my co-resident involved in the care of this patient. I agree with the assessment and plan as documented above. Patient seen and examined at bedside. Endorses residual right-sided nubmness and tingling. Bilateral strength intact. Patient states he has difficulty walking and has started to use a cane over the last [address] imaging showed a L parietal infarct. LP was unremarkable except for elevated protein. XR imaging was done of the brain, chest, and abdomen to ensure patient was safe to go through MRI as history was unavailable for MRI screening. Will follow up with MRI, start patient on aspirin, statin, and follow up with neurology. Coral Payan MD PGY-3 Documentation for date of: 04/18/24 Subjective Subjective Interval history: Patient seen and examined at bedside. Complains of RLE numbness. He is still confused, only oriented to self. Will continue permissive hypertension in setting of CVA workup. Per chart review, he is poorly compliant with BP medication. MRI is pending, however patient is unable to fill out questionnaire due to altered status. Family does not know either. Radiology requesting xray of lateral skull, chest, and abdomen to clear patient for MRI. Potassium 2.9 was repleted with IV potassium 40+40mEq. Continue aspirin 81 mg and monitor mental status. Exam Vital Signs Temp Pulse Resp BP Pulse Ox O2 Del Method 98.0 F 77 15 184/111 H 97 Room Air 04/18/24 08:00 04/18/24 08:00 04/18/24 08:00 04/18/24 08:00 04/18/24 08:00 04/18/24 08:00 Narrative Exam General: Awake and in no acute distress. Conversational, unkept. HEENT: Normocephalic, atraumatic, mucous membranes moist. Heart: Regular rate and rhythm, no murmurs. Lungs: Clear to auscultation with no wheezing or crackles. Abdomen: Soft, nondistended, nontender, positive bowel sounds. ?No guarding or rebound tenderness. Neurologic: oriented to self only, no gross neurological deficit, and patient able to move all 4 extremities. Extremities: No edema. Skin: No rash or ecchymoses, tattos all over Objective Labs 04/18/24 04:35 04/18/24 04:35 Labs: Laboratory Results - last 24 hr 04/17/24 04/17/24 04/17/24 11:41 13:09 15:26 WBC 8.7 RBC 5.29 Hgb 14.7 Hct 43.2 MCV 82 MCH 27.8 MCHC 34.0 RDW Std Deviation 37.7 Plt Count 290 Neut % (Auto) 61 Lymph % (Auto) 25 [place] % (Auto) 7 Eos % (Auto) 6 Baso % (Auto) 1 Neut # (Auto) 5.3 Lymph # (Auto) 2.2 [place] # (Auto) 0.6 Eos # (Auto) 0.5 Baso # (Auto) 0.1 Immature Gran # (Auto) 0.02 H Absolute Nucleated RBC 0.00 Immature Gran % 0 Nucleated RBC % 0 Puncture Site Left Radial ABG pH 7.43 ABG pCO2 44 ABG pO2 65 L ABG HCO3 29 H ABG O2 Saturation 94 ABG Base Excess 4 H FiO2 21 Sodium 138 Potassium 3.5 Chloride 100 Carbon Dioxide 29.2 Anion Gap 9 BUN 21 Creatinine 1.3 Estim Creat Clear Calc 90.4 eGFR > 60 BUN/Creatinine Ratio [address] Glu mg/dL Hemoglobin A1c Calculated Osmolality 277 Lactic Acid 1.0 Calcium 9.5 Corrected Calcium 9.5 Magnesium Total Bilirubin 0.7 AST 22 ALT 14 Alkaline Phosphatase 106 Total Protein 7.4 Albumin 4.3 Globulin 3.1 Albumin/Globulin Ratio 1.4 Triglycerides Cholesterol LDL Cholesterol, Calc HDL Cholesterol Cholesterol/HDL Ratio Procalcitonin 0.09 TSH Ur Collection Type Clean Catch Urine Color Yellow Urine Clarity Clear Urine pH 6.0 Ur Specific [place] 1.023 Urine Protein Trace Urine Glucose (UA) Negative Urine Ketones Negative Urine Blood Negative Urine Nitrite Negative Urine Bilirubin Negative Urine Urobilinogen (Auto) Negative Ur Leukocyte Esterase Positive Urine RBC 3 Urine WBC 22 H Ur Squamous Epith Cells < 1 Urine Bacteria None Hyaline Casts < 1 CSF Appearance CSF Color CSF WBC CSF RBC CSF Cell Count Tube # CSF Mononuclear WBCs CSF Polynuclear WBCs CSF Glucose CSF Total Protein Urine Opiates Screen Negative Urine Fentanyl Screen Negative Ur Barbiturates Screen Negative U Amphetamin/Meth Scrn Negative U Benzodiazepines Scrn Negative U Cocaine Metab Screen Negative U Marijuana (THC) Screen Positive A Ethyl Alcohol < 3.0 04/17/24 04/18/24 18:00 04:35 WBC 8.1 RBC 5.04 Hgb 14.1 Hct 41.6 MCV 83 MCH 28.0 MCHC 33.9 RDW Std Deviation 38.4 Plt Count 291 Neut % (Auto) 53 Lymph % (Auto) 30 [place] % (Auto) 9 Eos % (Auto) 8 Baso % (Auto) 1 Neut # (Auto) 4.3 Lymph # (Auto) 2.4 [place] # (Auto) 0.7 Eos # (Auto) 0.7 H Baso # (Auto) 0.1 Immature Gran # (Auto) 0.02 H Absolute Nucleated RBC 0.00 Immature Gran % 0 Nucleated RBC % 0 Puncture Site ABG pH ABG pCO2 ABG pO2 ABG HCO3 ABG O2 Saturation ABG Base Excess FiO2 Sodium 138 Potassium 2.9 L D Chloride 103 Carbon Dioxide 27.2 Anion Gap 8 BUN 18 Creatinine 1.3 Estim Creat Clear Calc 90.4 eGFR > 60 BUN/Creatinine Ratio 14 Glucose [address] Glu mg/dL 108 Hemoglobin A1c 5.4 Calculated Osmolality 277 Lactic Acid Calcium 9.3 Corrected Calcium 9.3 Magnesium 2.2 Total Bilirubin 0.9 AST 16 ALT 11 Alkaline Phosphatase 96 Total Protein 6.7 Albumin 4.0 Globulin 2.7 Albumin/Globulin Ratio 1.5 Triglycerides 118 Cholesterol 206 H LDL Cholesterol, Calc 125 HDL Cholesterol 57 Cholesterol/HDL Ratio 3.6 L Procalcitonin TSH 1.85 Ur Collection Type Urine Color Urine Clarity Urine pH Ur Specific [place] Urine Protein Urine Glucose (UA) Urine Ketones Urine Blood Urine Nitrite Urine Bilirubin Urine Urobilinogen (Auto) Ur Leukocyte Esterase Urine RBC Urine WBC Ur Squamous Epith Cells Urine Bacteria Hyaline Casts CSF Appearance Clear CSF Color Colorless CSF WBC 1 CSF RBC 0 CSF Cell Count Tube # Tube # 4 CSF Mononuclear WBCs 100.0 CSF Polynuclear WBCs 0 CSF Glucose 67 CSF Total Protein 86 H Urine Opiates Screen Urine Fentanyl Screen Ur Barbiturates Screen U Amphetamin/Meth Scrn U Benzodiazepines Scrn U Cocaine Metab Screen U Marijuana (THC) Screen Ethyl Alcohol ABG Interpretation ABG results: 04/17/24 15:26 ABG pH 7.43 ABG pCO2 44 ABG pO2 65 L ABG HCO3 29 H ABG O2 Saturation 94 ABG Base Excess 4 H Quality Measures Quality Measures none Assessment & Plan Assessment Current Active Medications: Generic Name Dose Route Start Last Admin Trade Name Freq PRN Reason Stop Dose Admin Acetaminophen 650 mg 04/17/24 21:19 Acetaminophen 325 Mg Tablet PO 05/17/24 21:18 Q6HR PRN Mild Pain (1-3) & Fever >101 Aspirin 81 mg 04/18/24 09:00 04/18/24 08:50 Aspirin Ec 81 Mg Tabec PO 05/18/24 08:59 81 mg QDAY GUS Administration Heparin Sodium (Porcine) 5,000 unit 04/18/24 09:00 04/18/24 08:50 Heparin Sod Inj 5000 Unit/Ml Vial SC 05/02/24 08:59 5,000 unit Q12H GUS Administration Potassium Chloride 10 meq in 100 mls @ 100 mls/hr 04/18/24 07:45 04/18/24 08:49 Kcl Ivpb IV 04/18/24 11:44 50 mls/hr Q1H GUS Administration Potassium Chloride 10 meq in 100 mls @ 100 mls/hr 04/18/24 12:30 Kcl Ivpb IV 04/18/24 16:29 Q1H GUS Ondansetron HCl 4 mg 04/17/24 19:39 Ondansetron Inj 2 Mg/Ml Inj 2 Ml IV 05/17/24 19:38 Q6H PRN NAUSEA OR VOMITING Protocol Pantoprazole Sodium 40 mg 04/18/24 09:00 04/18/24 08:50 Pantoprazole Inj 40 Mg Vial IVP 05/18/24 08:59 40 mg QDAY GUS Administration Plan Armando Cheek is a 48-year-old male with past medical history of hypertension and methamphetamine use who was BIBA to [facility] on 04/17/2024 with chief complaint of altered mental status. CT scan of head suspicious for acute infarct left parietal white matter, patient admitted for CVA workup. #CVA workup #Acute encephalopathy Multifactorial: Infection, hypertensive emergency, has hx of methamphetamine use, denies any alcohol use current, utox positive for THC. Poor compliance with antihypertensive medication. Blood pressure 205/106 on presentation. Given labetalol in ED. CT findings of suspicious acute infarct left parietal white matter. Neurology consulted--recommended LP and MRI. LP negative for infection, elevated protein (86). Plan: -aspirin 81 mg daily -atovastatin 80mg daily - MR stroke protocol pending--needs xray of lateral skull, chest, and abdomen to clear patient for MRI. -echo with bubble study if MR positive for stroke -Head of bed elevated, keep patient euthermic and euglycemic -Neurocheck every 4 hours -Referral to physical therapy -Permissive hypertension for 24 hours #Hypertension emergency Maybe contributing to encephalopathy. -Pending med reconciliation, -allow permissive hypertension for 24 hours -Will consider labetalol for SBP/DBP > 220/120 ?#Other disorders of electrolyte and fluid balance, not elsewhere classified -replete as needed #Nicotine dependence #THC dependence #History of methamphetamine use Patient denies meth use currently, reports smoking every day, reports marijuana use Consider nicotine patches as needed, smoking cessation education DVT prophylaxis: Heparin every 12 hours GI prophylaxis: IV Protonix Diet: regular Lines: Peripheral IV Code status: Full code The patient's management plan was discussed with my attending physician Dr. Torres and senior Dr. Payan. Karen Winston, PGY-1 Attending Provider Attestation/Addendum I reviewed labs, imaging, EKG, home medications and prior available records. Face to face evaluation was performed by me. I have personally examined the patient and discussed assessment and plan with the IM team. I reviewed the resident note and agree with the plan with exceptions as below. Acute encephalopathy Right upper/right lower extremity numbness Left parietal CVA Hypokalemia Hypertensive urgency Marijuana use Follow-up brain MRI Allow permissive hypertension in the setting of possible CVA X-ray survey prior to MRI Counseled the patient regarding the importance of avoiding marijuana Repleted potassium. Follow-up BMP PT/OT evaluation
--- NOTE | 2024-04-18 10:11 | XR_ITS ---
Examination: AP chest single view Technique one AP portable upright chest single view Exam date and time: April 18, 2024 1033 hours INDICATIONS: MRI clearance FINDINGS: Normal heart size No cardiac leads The lungs are clear IMPRESSION: No active disease
--- NOTE | 2024-04-18 10:11 | XR_ITS ---
Examination: Skull series 4 views TECHNIQUE: Angela Zamora right and left lateral skull series 4 views Exam date and time: April 18, 2024 1027 hours INDICATIONS: Clearance for MRI examination FINDINGS: No aneurysm clips or other opaque foreign bodies project within the cranial vault Intact cranial vault no fracture IMPRESSION: No aneurysm clip depicted
--- NOTE | 2024-04-18 10:11 | XR_ITS ---
Examination: Abdomen AP single view Technique: AP portable supine abdomen, single view Exam date and time: April 18, 2024 1027 hours INDICATIONS: MRI clearance FINDINGS: No opaque foreign bodies in the abdomen Nonobstructive bowel gas pattern IMPRESSION: No opaque foreign bodies in the abdomen
--- NOTE | 2024-04-18 11:28 | PC.SS ---
Patient Armando Cheek is a 48 Year old male admitted for Altered Mental Status. SS met with patient at bedside to discuss discharge plan and verify demographic information. Patient reported that he lives at home with his mother, Lois Alcocer who he reports is his surrogate decision maker [phone]. Patient reports that he does utilize a cane to assist with ambulation as needed. Patient reports he is able to perform all ADL's independently. Patient's choice of pharmacy is [facility]. Patient reports he does not have a PCP. At time of discharge his mother will provide transportation. Discharge plan: Home Next of Kin: Mother, Lois Alcocer
[2024-04-18] MEDS: ATORVASTATIN CALCIUM 20 MG TABLET 80 MG PO (12:01)
--- NOTE | 2024-04-18 14:06 | PC.PT ---
Patient is safe to ambulate to the bathroom using a FWW and with 1 staff assist for safety. RN made aware.
--- NOTE | 2024-04-18 14:55 | PC.SS ---
Addendum entered by Teresita Huynh 04/18/24 15:28: MIL follow up note; Leanna will contact patient in regards to FWW delivery. Original Note: MIL follow up note; MIL was contacted by Liang from PT reporting that patient was in need of a FWW and Outpatient PT. MIL sent DME referral through [employer].
[2024-04-18] MEDS: NICOTINE PATCH 21 MG/24 HR PATCH.TD24 TOP (16:23)
[2024-04-18] MEDS: POTASSIUM CHL 10 mEq IVPB 10 MEQ/100 ML BAG 75 MEQ IV (20:34)
[2024-04-18] MEDS: amLODIPine BESYLATE 5 MG TABLET PO (20:35)
[2024-04-18] MEDS: hydrALAZINE INJ 20 MG/ML VIAL 10 MG IV (21:39)
--- NOTE | 2024-04-18 22:07 | PD.VPROG1 ---
Telemedicine visit statement This visit was conducted with the use of interactive audio and video telecommunications system that permits real time communication between the patient and the provider. Patient's verbal consent for virtual visit was obtained on 04/18/24 at 2207. Documentation for date of: 04/18/24 Subjective Subjective Interval history: Patient is in telemetry. His mental status is improved to baseline. He walked with the physical therapist with a walker. Virtual exam Vital Signs Temp Pulse Resp BP Pulse Ox O2 Del Method 98.7 F 87 24 H 168/110 H 96 Room Air 04/18/24 20:00 04/18/24 21:39 04/18/24 20:00 04/18/24 21:39 04/18/24 20:00 04/18/24 20:00 Objective Labs 04/18/24 04:35 04/18/24 04:35 Labs: Laboratory Results - last 24 hr 04/18/24 04:35 WBC 8.1 RBC 5.04 Hgb 14.1 Hct 41.6 MCV 83 MCH 28.0 MCHC 33.9 RDW Std Deviation 38.4 Plt Count 291 Neut % (Auto) 53 Lymph % (Auto) 30 [place] % (Auto) 9 Eos % (Auto) 8 Baso % (Auto) 1 Neut # (Auto) 4.3 Lymph # (Auto) 2.4 [place] # (Auto) 0.7 Eos # (Auto) 0.7 H Baso # (Auto) 0.1 Immature Gran # (Auto) 0.02 H Absolute Nucleated RBC 0.00 Immature Gran % 0 Nucleated RBC % 0 Sodium 138 Potassium 2.9 L D Chloride 103 Carbon Dioxide 27.2 Anion Gap 8 BUN 18 Creatinine 1.3 Estim Creat Clear Calc 90.4 eGFR > 60 BUN/Creatinine Ratio 14 Glucose [address] Glu mg/dL 108 Hemoglobin A1c 5.4 Calculated Osmolality 277 Calcium 9.3 Corrected Calcium 9.3 Magnesium 2.2 Total Bilirubin 0.9 AST 16 ALT 11 Alkaline Phosphatase 96 Total Protein 6.7 Albumin 4.0 Globulin 2.7 Albumin/Globulin Ratio 1.5 Triglycerides 118 Cholesterol 206 H LDL Cholesterol, Calc 125 HDL Cholesterol 57 Cholesterol/HDL Ratio 3.6 L TSH 1.85 ABG Interpretation ABG results: 04/17/24 15:26 ABG pH 7.43 ABG pCO2 44 ABG pO2 65 L ABG HCO3 29 H ABG O2 Saturation 94 ABG Base Excess 4 H Assessment & Plan Problem List (1) Encephalopathy: Status: Acute Assessment and plan: Most likely from hypertensive encephalopathy. Needs better control of hypertension. CSF analysis was unremarkable Trying to get the clearance for the MRI brain as there was a question about brain surgery years ago. Needs to quit using meth amphetamine.
[2024-04-19] VITALS (11 sets, daily range): BP systolic 150–178; BP diastolic 86–115; PULSE 72–91; RESP 11–100; TEMP 36.3–37.1; O2SAT 95–99; BMI 31.3; BMI 14.0; BMI 31.4
--- NOTE | 2024-04-19 | XR_ITS ---
Examinations: MRI Brain without intravenous contrast. MRA brain without intravenous contrast. MRA carotids without intravenous contrast 3-D vascular reconstructions Date and time of exam: April 19, 2024 1045 hours Indication: Altered mental status numbness in the right leg beginning April 17, 2024 Technique: Multiple axial and sagittal images of the brain have been obtained MRA brain carotid images without contrast obtained, including 3-D postprocessing, vascular maximum intensity projection images Findings: Sell[place] is not enlarged. The optic chiasm and infundibular stalk are not remarkable. Prepontine and interpeduncular cisterns are not enlarged. No localized enlargement of the medulla or mehdi. Fourth ventricle and cerebellar tonsils normal in position. Subacute hemorrhage is not seen. Fourth ventricle is midline. Mass in the cerebellopontine angle region is not evident. 7th and 8th nerve complexes exhibits symmetry. Globes are symmetrical with no retro-orbital mass. Increased white matter signal prominent Diffusion-weighted images demonstrate 4 mm focus restricted diffusion right temporal lobe diffusion image 10, 3 mm focus restricted diffusion left temporal lobe diffusion image 13 5 mm faint focus restricted diffusion posterior right parietal lobe diffusion image 16 without ADC deficit Subtle restricted diffusion left parietal lobe image 17 without signal deficit Mass-effect upon the ventricular system is not identified. MRA carotid images degraded by patient motion, suspicious for 50-70% stenosis origin right internal carotid artery. MRA brain images 70% stenosis origin of the right middle cerebral artery trifurcation branch Impression: Small acute infarcts right and left temporal lobe as above Prominent chronic microvascular white matter change Suspicious for 50-70% stenosis origin right internal carotid artery, recommend carotid Doppler sonography follow-up 70% stenosis origin of a right middle cerebral artery trifurcation branch
--- NOTE | 2024-04-19 00:26 | PC.NURSE ---
SPOKE WITH DR. AMADO, PT STATING THAT RIGHT ARM AND RIGHT FOOT IS GETTING WORSE . PT PREVIOUSLY STATED THAT NUMBNESS COMES AND GOES AT HOME. NUMBNESS IS NOW PERSISTENT. MD TO COME UP AND ASSESS PT. 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 BLE WITH SLIGHT WEAKNESS. PT CONTINUES TO BE AO4. NO FACIAL DROOP, SLIGHT APHASIA WHEN FORMING SENTENCES.
--- NOTE | 2024-04-19 00:43 | XR_ITS ---
Examination: CT brain head without contrast. 2-D sagittal coronal reconstructions Date and time of exam:April 19, 2024 0100 hours INDICATIONS: Altered mental status, numbness right arm right foot onset today COMPARISON: April 17, 2024 CTDI: vol (mGy):57 DLP: (mGycm): 1 1 59 Technique: Multiple CT axial sections of the brain have been obtained, 5 mm slice thickness. Contrast has not been administered. 2-D sagittal, coronal reconstructions have been obtained Low dose protocols were performed. One or more of the following dose reduction techniques were used; automated exposure control, adjustment of the mA and/or KV according to patient size, use of iterative reconstruction technique. Findings: No significant ventricular enlargement. Old appearing infarcts basal ganglia and left occipital lobe Intra-axial or extra-axial hemorrhage density is not seen. No mass effect or midline shift Basal cisterns are not remarkable. Fourth ventricle is midline. Cranial vault intact. Impression: Negative for acute hemorrhage, mass effect or midline shift Consider brain MRI MRA without contrast follow-up
[2024-04-19 01:13] LABS: Potassium 3.4 mMol/L (3.4-5.1)
--- NOTE | 2024-04-19 02:34 | PRELIM_ITS ---
CT scan of the head without intravenous contrast (axial sections with sagittal and coronal reformats). April 19, 2024 0100 hours Clinical History: r/o hemorr Comparison: No prior study is available for comparison. Findings: No evidence of intracranial hemorrhage, mass effect or midline shift.Focal encephalomalacia is seen in the left occipital lobe consistent with a chronic infarct .There are old lacunar infarcts in both basal ganglia. The ventricles and CSF spaces are unremarkable. The calvarium is unremarkable. The mastoid air cells and the visualized paranasal sinuses are clear. Impression: No evidence of intracranial hemorrhage, mass effect or midline shift. Other findings as described above. Report Electronically Signed By: Yesy Kilgore 04/19/2024 2:33:32 AM [EST]
--- NOTE | 2024-04-19 02:41 | PC.NURSE ---
DR. DIEGO AWARE OF PRELIM REPORT FOR CT HEAD. PT REPORTING SLIGHT WORSENING NUMBNESS TO RIGHT ARM. NO C/O PAIN. NO NEW ORDERS AT THIS TIME.
[2024-04-19 05:23] LABS: Basophils # (Auto) 0.1 Thou/mm3 (0.0-0.2); Basophils % (Auto) 1 % (0-2.5); Eosinophils # (Auto) 0.6 Thou/mm3 (0.0-0.5); Eosinophils % (Auto) 6 % (0-10); Hematocrit 42.4 % (41.0-53.0); Hemoglobin 14.4 g/dL (13.5-16.0); Immature Granulocytes % (Auto) 0 % (0-0); Immature Granulocytes Auto 0.03 Thou/mm3 (0.00-0.00); Lymphocytes # (Auto) 2.6 Thou/mm3 (1.0-4.8); Lymphocytes % (Auto) 26 % (10-50); Mean Corpuscular Hemoglobin 28.3 pg (25.0-35.0); Mean Corpuscular Volume 84 fL (80-100); Monocytes # (Auto) 0.8 Thou/mm3 (0.0-0.8); Monocytes % (Auto) 8 % (0-12); Neutrophils # (Auto) 6.2 Thou/mm3 (1.8-7.7); Neutrophils % (Auto) 60 % (37-80); Nucleated Red Blood Cell % 0 /100 WBC (0); Platelet Count 277 Thou/mm3 (140-440); RDW Standard Deviation 38.5 fL (35.1-43.9); Red Blood Count 5.08 Miln/mm3 (4.50-5.90); White Blood Count 10.3 Thou/mm3 (3.8-10.6)
[2024-04-19 06:13] LABS: Alanine Aminotransferase 11 U/L (10-49); Albumin, Serum 4.1 gm/dL (3.5-5.0); Albumin/Globulin Ratio 1.4 (1.2-2.2); Alkaline Phosphatase 99 U/L (46-116); Anion Gap 8 (7-16); Aspartate Amino Transferase 14 U/L (0-34); BUN/Creatinine Ratio 14 Ratio (12-20); Bilirubin,Total 0.6 mg/dL (0.3-1.2); Blood Urea Nitrogen 18 mg/dL (9-23); Calcium 9.3 mg/dL (8.3-10.6); Calcium (Corrected) 9.3 mg/dL (8.5-10.1); Carbon Dioxide 29.4 mMol/L (20.0-31.0); Chloride 103 mMol/L (98-107); Creatinine (Component) 1.3 mg/dL (0.6-1.3); Estimated Creatinine Clearance 90.4 mL/min (>60); Glucose 85 mg/dL (74-106); Magnesium 2.1 mg/dL (1.6-2.6); Osmolality,Calculated 280 (275-295); Potassium 3.5 mMol/L (3.4-5.1); Sodium 140 mMol/L (136-145); Total Protein 7.1 gm/dL (5.7-8.2); eGFR > 60 See Note
[2024-04-19] MEDS: PANTOPRAZOLE INJ 40 MG VIAL IVP (09:07)
[2024-04-19] MEDS: POTASSIUM CHLORIDE 20 mEq TABCR 40 MEQ PO (09:07)
[2024-04-19] MEDS: ASPIRIN EC 81 MG TABEC PO (09:07)
[2024-04-19] MEDS: ATORVASTATIN CALCIUM 20 MG TABLET 80 MG PO (09:07)
[2024-04-19] MEDS: NICOTINE PATCH 21 MG/24 HR PATCH.TD24 TOP (09:08)
[2024-04-19] MEDS: HEPARIN SOD INJ 5000 UNIT/ML VIAL SC ×2 (09:08→20:49)
--- NOTE | 2024-04-19 11:12 | PD.RESPRO ---
Documentation for date of: 04/19/24 Subjective Subjective Interval history: Patient seen and examined at bedside. Complains of right-sided upper and lower extremity numbness which was present yesterday. Overnight, repeat CT head was ordered due to questionable new onset right arm numbness. Imaging was negative. Orientation has improved today. Patient is able to state accurate day, year, and place. Patient was started on amlodipine 5 mg after 24-hour permissive hypertension. BP Still poorly controlled. Will increase amlodipine to 10mg daiy and add lisinopril 10 mg daily. MRI head showed small acute infarcts of right and left temporal lobe. Prominent chronic microvascular white matter changes. 50-70% stenosis of right ICA, 70% stenosis at origin of the right MCA. Echo with bubble study per neuro recs. PT recs to continue outpatient which he has agreed to. Aspirin 81 mg and atorvastatin 80 mg daily for stroke. Exam Vital Signs Temp Pulse Resp BP Pulse Ox O2 Del Method 97.9 F 74 18 178/109 H 98 Room Air 04/19/24 08:00 04/19/24 08:07 04/19/24 08:07 04/19/24 08:00 04/19/24 08:00 04/19/24 04:00 Narrative Exam General: Awake and in no acute distress. Conversational, unkept. HEENT: Normocephalic, atraumatic, mucous membranes moist, missing teeth. Heart: Regular rate and rhythm, no murmurs. Lungs: Clear to auscultation with no wheezing or crackles. Abdomen: Soft, nondistended, nontender, positive bowel sounds. ?No guarding or rebound tenderness. Neurologic: orientation improved, no new neurological deficit, and patient able to move all 4 extremities. Extremities: No edema. Skin: No rash or ecchymoses, tattos all over Objective Labs 04/19/24 04:45 04/19/24 04:45 Labs: Laboratory Results - last 24 hr 04/19/24 04/19/24 00:39 04:45 WBC 10.3 RBC 5.08 Hgb 14.4 Hct 42.4 MCV 84 MCH 28.3 MCHC 34.0 RDW Std Deviation 38.5 Plt Count 277 Neut % (Auto) 60 Lymph % (Auto) 26 Cass % (Auto) 8 Eos % (Auto) 6 Baso % (Auto) 1 Neut # (Auto) 6.2 Lymph # (Auto) 2.6 Cass # (Auto) 0.8 Eos # (Auto) 0.6 H Baso # (Auto) 0.1 Immature Gran # (Auto) 0.03 H Absolute Nucleated RBC 0.00 Immature Gran % 0 Nucleated RBC % 0 Sodium 140 Potassium 3.4 D 3.5 Chloride 103 Carbon Dioxide 29.4 Anion Gap 8 BUN 18 Creatinine 1.3 Estim Creat Clear Calc 90.4 eGFR > 60 BUN/Creatinine Ratio 14 Glucose 85 Calculated Osmolality 280 Calcium 9.0 9.3 Corrected Calcium 9.3 Magnesium 2.0 2.1 Total Bilirubin 0.6 AST 14 ALT 11 Alkaline Phosphatase 99 Total Protein 7.1 Albumin 4.1 Globulin 3.0 Albumin/Globulin Ratio 1.4 ABG Interpretation ABG results: 04/17/24 15:26 ABG pH 7.43 ABG pCO2 44 ABG pO2 65 L ABG HCO3 29 H ABG O2 Saturation 94 ABG Base Excess 4 H Quality Measures Quality Measures none Assessment & Plan Assessment Current Active Medications: Generic Name Dose Route Start Last Admin Trade Name Freq PRN Reason Stop Dose Admin Acetaminophen 650 mg 04/17/24 21:19 Acetaminophen 325 Mg Tablet PO 05/17/24 21:18 Q6HR PRN Mild Pain (1-3) & Fever >101 Amlodipine Besylate 10 mg 04/19/24 21:00 Amlodipine Besylate 5 Mg Tablet PO 05/19/24 20:59 HS GUS Aspirin 81 mg 04/18/24 09:00 04/19/24 09:07 Aspirin Ec 81 Mg Tabec PO 05/18/24 08:59 81 mg QDAY GUS Administration Atorvastatin Calcium 80 mg 04/18/24 10:45 04/19/24 09:07 Atorvastatin Calcium 20 Mg Tablet PO 05/18/24 10:44 80 mg DAILY GUS Administration Heparin Sodium (Porcine) 5,000 unit 04/18/24 09:00 04/19/24 09:08 Heparin Sod Inj 5000 Unit/Ml Vial SC 05/02/24 08:59 5,000 unit Q12H GUS Administration Nicotine 21 mg 04/18/24 14:00 04/19/24 09:08 Nicotine Patch 21 Mg/24 Hr Patch.Td24 TOP 05/18/24 13:59 21 mg QDAY GUS Administration Ondansetron HCl 4 mg 04/17/24 19:39 Ondansetron Inj 2 Mg/Ml Inj 2 Ml IV 05/17/24 19:38 Q6H PRN NAUSEA OR VOMITING Protocol Pantoprazole Sodium 40 mg 04/18/24 09:00 04/19/24 09:07 Pantoprazole Inj 40 Mg Vial IVP 05/18/24 08:59 40 mg QDAY GUS Administration Plan Armando Cheek is a 48-year-old male with past medical history of hypertension and methamphetamine use who was BIBA to [facility] on 04/17/2024 with chief complaint of altered mental status. CT scan of head suspicious for acute infarct left parietal white matter, patient admitted for CVA workup. #CVA workup #Acute encephalopathy-resolved Multifactorial: Infection, hypertensive emergency, has hx of methamphetamine use, denies any alcohol use current, utox positive for THC. Poor compliance with antihypertensive medication. Blood pressure 205/106 on presentation. Given labetalol in ED. CT findings of suspicious acute infarct left parietal white matter. Neurology consulted--recommended LP and MRI. LP negative for infection, elevated protein (86). MRI head showed small acute infarcts of right and left temporal lobe. Prominent chronic microvascular white matter changes. 50-70% stenosis of right ICA, 70% stenosis at origin of the right MCA. Plan: -aspirin 81 mg daily -atovastatin 80mg daily -echo with bubble study pending -Head of bed elevated, keep patient euthermic and euglycemic -Neurocheck every 4 hours -Referral to physical therapy #Hx poorly controlled hypertension #Medication noncompliance -Amlodipine 10 mg daily ? Lisinopril 10 mg daily -Patient was instructed extensively on importance of compliance due to higher risk of stroke associated with his blood pressure. #Other disorders of electrolyte and fluid balance, not elsewhere classified -replete as needed #Nicotine dependence #THC dependence #History of methamphetamine use Patient denies meth use currently, reports smoking every day, reports marijuana use Consider nicotine patches as needed, smoking cessation education -Nicotine patch as needed #Hypertension emergency-resolved DVT prophylaxis: Heparin every 12 hours GI prophylaxis: IV Protonix Diet: regular Lines: Peripheral IV Code status: Full code The patient's management plan was discussed with my attending physician Dr. Torres. Karen Winston PGY1 Attending Provider Attestation/Addendum I reviewed labs, imaging, EKG, home medications and prior available records. Face to face evaluation was performed by me. I have personally examined the patient and discussed assessment and plan with the IM team. I reviewed the resident note and agree with the plan with exceptions as below. Acute encephalopathy Right upper/right lower extremity numbness Acute temporal CVA Hypokalemia Hypertensive urgency Marijuana use Follow-up brain MRI: Showed small acute infarcts in the right and left temporal lobes. Also showed moderate stenosis in the right middle cerebral artery and possibly the right internal carotid artery. Recommend carotid Doppler ultrasound. Discussed with neurology: Recommended echocardiogram with bubble study prior to discharge. Continue aspirin and atorvastatin Outpatient follow-up with neurology. Resumed home amlodipine. Added lisinopril 20 mg. Monitor BP at home X-ray survey prior to MRI: Showed no clips or pacemaker Counseled the patient regarding the importance of avoiding marijuana: PT/OT evaluation: Recommended outpatient PT
--- NOTE | 2024-04-19 12:26 | ESDS_ITS ---
Addendum Discharge Addendum Date of report being addended: 04/19/24 Narrative: Attending's attestation: I reviewed labs, imaging, EKG, home medications and prior available records. Face to face evaluation was performed by me. I have personally examined the patient and discussed assessment and plan with the IM team. I reviewed the resident note and agree with the plan with exceptions as below. Acute encephalopathy Right upper/right lower extremity numbness Left parietal CVA Hypokalemia Hypertensive urgency Marijuana use Follow-up brain MRI: Showed small acute infarcts in the right and left temporal lobes. Also showed moderate stenosis in the right middle cerebral artery and p ossibly the right internal carotid artery. Recommend carotid Doppler ultrasound. Continue aspirin and atorvastatin Outpatient follow-up with neurology/vascular clinic Resumed home amlodipine. Added lisinopril 20 mg. Monitor BP at home X-ray survey prior to MRI: Showed no clips or pacemaker Counseled the patient regarding the importance of avoiding marijuana: PT/OT evaluation: Recommended outpatient PT Time spent is 40 minutes. More than 50% of the time was spent on patient education and coordination of care.
[2024-04-19] MEDS: Lisinopril 2.5 MG TABLET 10 MG PO (12:35)
--- NOTE | 2024-04-19 14:13 | ECHO_ITS ---
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 LV Ejection Fraction MOD 4C 66.9 % LV Cardiac Index MOD 4C 4262.0 cm?/min?m? LV Ejection Fraction 4C AL 68.1 % LV Cardiac Index 4C AL 4568.1 cm?/min?m? LV Ejection Fraction MOD 2C 66.3 % LV Cardiac Index MOD 2C 2994.1 cm?/min?m? LV Ejection Fraction 2C AL 67.7 % LV Cardiac Index 2C AL 3072.2 cm?/min?m? LA Volume Index 29.0 cm?/m? 16 - 28 cm?/m? Ascending Aorta Diameter 3.7 cm DOPPLER AV Peak Velocity 150.7 cm/s AV Peak Gradient 9.1 mmHg AV Mean Gradient 6.0 mmHg AV Velocity Time Integral 29.0 cm LVOT Peak Velocity 104.0 cm/s LVOT Peak Gradient 4.3 mmHg LVOT Velocity Time Integral 25.5 cm LVOT Cardiac Index 3043.1 cm?/min?m? AV Area Cont Eq vti 3.0 cm? AV Area Cont Eq pk 2.4 cm? MV Area PHT 3.8 cm? Mitral E Point Velocity 60.6 cm/s Mitral A Point Velocity 88.3 cm/s Mitral E to A Ratio 0.7 LV E' Lateral Velocity 7.6 cm/s Mitral E to LV E' Lateral Ratio 8.0 LV E' Septal Velocity 7.0 cm/s Mitral E to LV E' Septal Ratio 8.7 TR Peak Velocity 219.0 cm/s TR Peak Gradient 19.2 mmHg PV Peak Velocity 112.0 cm/s PV Peak Gradient 5.0 mmHg RVOT Peak Velocity 57.6 cm/s FINDINGS Left Ventricle The left ventricular wall thickness is mildly increased. The left ventricular ejection fraction is normal, estimated at 60-65%. There is grade I diastolic dysfunction of the left ventricle (impaired relaxation pattern). Right Ventricle The right ventricle is normal in size and systolic function. The estimated right ventricular systolic pressure, 25 mmHg. Left Atrium The left atrium is normal by two-dimensional, color flow and Doppler imaging with no structural abnormalities, no thrombus formation present. Right Atrium The right atrium is normal by two-dimensional imaging, color flow and Doppler imaging with no structural abnormalities, no thrombus formation present. Atrial Septum The interatrial septum is normal to color flow Doppler and agitated saline imaging. Aorta The aorta is normal by two-dimensional, color flow and Doppler interrogation. Mitral Valve Mild mitral regurgitation. Mild mitral annular calcification. Aortic Valve The aortic valve is trileaflet and normal to two-dimensional, color flow and Doppler interrogation. Tricuspid Valve There is mild tricuspid valve regurgitation. Pulmonic Valve Trivial pulmonic valve regurgitation. Vessels The pulmonary artery appears normal. The inferior vena cava pulmonary and hepatic veins appear normal. Pericardium The pericardium is normal by two-dimensional imaging. There is no significant pericardial effusion. CONCLUSIONS indication: echo w/ bubble study LV has mild LVH & diastolic dysfunction I present Ejection fraction 55-60%. RV appears normal with RVSP of 25 mmHg IAS is normal to color flow Doppler and agitated saline imaging. MV has mild MR & MAC TV has mild TR Carrie Hua (Electronically Signed) Final Date: 22 April 2024 13:44
--- NOTE | 2024-04-19 15:16 | XR_ITS ---
Examination: Carotid arterial duplex scan, ultrasound. Date and time of exam: April 19, 2024 2005 hrs. Indications: Altered mental status today, history CVA Technique: Multiple sonographic images have been obtained of the carotid arteries and vertebral arteries, B-mode/grayscale imaging and Doppler spectral analysis and color flow Peak systolic and diastolic velocities have been recorded. Systolic diastolic ratios have been calculated. Findings: Right peak systolic velocities: Distal internal carotid artery peak systolic velocity is 0.6 M/sec Proximal internal carotid artery peak systolic velocity is 0.7 M/sec Carotid bifurcation peak systolic velocity is 0.6 M/sec External carotid artery peak systolic velocity is 0.4 M/sec Vertebral artery flow is antegrade. Not seen Left peak systolic velocities: Distal internal carotid artery peak systolic velocity is 1.5 M/sec Proximal internal carotid artery peak systolic velocity is 0.5 M/sec Carotid bifurcation peak systolic velocity is 48 M/sec External carotid artery peak systolic velocity is 1.3 M/sec Vertebral artery flow is not seen Doppler waveform analysis demonstrates no spectral body Impression: Right internal carotid artery demonstrates 0-10% stenosis. Left internal carotid artery demonstrates 0-10% stenosis. Vertebral artery flow is not seen, probably technical but clinical correlation advised
--- NOTE | 2024-04-19 15:36 | PC.SS ---
SS follow up note; Patient pending echo.
[2024-04-19] MEDS: hydrALAZINE INJ 20 MG/ML VIAL 10 MG IV (17:50)
[2024-04-19] MEDS: amLODIPine BESYLATE 5 MG TABLET 10 MG PO (20:49)
--- NOTE | 2024-04-19 23:50 | PD.NEUROPROG ---
Documentation for date of: 04/19/24 Subjective Subjective Interval history: Patient was seen in telemetry today with his mom at the bedside. No new symptoms reported. He is tolerating oral diet well. Denies any weakness, paresthesias or trouble with balance. He was able to walk in the hallway with the physical therapist using the walker. Exam - Neurology Vital Signs Temp Pulse Resp BP Pulse Ox O2 Del Method 97.7 F 80 13 171/86 H 95 Room Air 04/19/24 20:00 04/19/24 20:49 04/19/24 20:00 04/19/24 20:49 04/19/24 20:00 04/19/24 20:00 Narrative Exam GENERAL APPEARANCE: Well hydrated, well-nourished in no acute distress. HEENT: Normocephalic, atraumatic, extraocular movements intact. Pupils: Equal reacting to light and accommodation NECK: Supple, no JVD or bruits. CARDIOVASULAR: Heart: S1, S2 heard, regular without S3-S4 or murmur no rubs or gallops. LUNGS/CHEST: Clear to auscultation bilaterally. No rails, rhonchi, or wheezing. Normal inspection. ABDOMEN: Soft, nontender, with normal bowel sounds. No pulsatile masses. No rebound, rigidity, or guarding. Normal inspection and palpation. EXTREMITIES: Normal inspection and palpation. No edema, clubbing or cyanosis. SKIN: Warm and dry without rashes. Normal inspection. MUSCULOSKELETAL: No cervical, thoracic, lumbar or midline bony tenderness. Normal inspection. NEURO: Alert, awake and oriented x3. Cranial nerves: II through XII grossly intact. Speech and language: Normal with no dysarthria or dysphasia. Motor system: Tone and bulk: Normal: Strength: 5 out of 5 in all 4 extremities; No pronator drift noted. Deep tendon reflexes: 2+ bilaterally symmetrical. Plantar reflex: Downgoing bilaterally. Sensory system: Intact to all modalities of sensation bilaterally. Coordination: Intact to [id number] and [id number] test bilaterally. No ataxia, no dysmetria, or dysdiadochokinesia noted. No intention tremors noted. Gait: Normal. Toe, heel, tandem walk all are normal. Romberg: Negative. No signs of meningeal irritation noted. PSYCHIATRIC: Normal mood and affect. Objective Labs 04/19/24 04:45 04/19/24 04:45 Labs: Laboratory Results - last 24 hr 04/19/24 04/19/24 00:39 04:45 WBC 10.3 RBC 5.08 Hgb 14.4 Hct 42.4 MCV 84 MCH 28.3 MCHC 34.0 RDW Std Deviation 38.5 Plt Count 277 Neut % (Auto) 60 Lymph % (Auto) 26 [place] % (Auto) 8 Eos % (Auto) 6 Baso % (Auto) 1 Neut # (Auto) 6.2 Lymph # (Auto) 2.6 [place] # (Auto) 0.8 Eos # (Auto) 0.6 H Baso # (Auto) 0.1 Immature Gran # (Auto) 0.03 H Absolute Nucleated RBC 0.00 Immature Gran % 0 Nucleated RBC % 0 Sodium 140 Potassium 3.4 D 3.5 Chloride 103 Carbon Dioxide 29.4 Anion Gap 8 BUN 18 Creatinine 1.3 Estim Creat Clear Calc 90.4 eGFR > 60 BUN/Creatinine Ratio 14 Glucose 85 Calculated Osmolality 280 Calcium 9.0 9.3 Corrected Calcium 9.3 Magnesium 2.0 2.1 Total Bilirubin 0.6 AST 14 ALT 11 Alkaline Phosphatase 99 Total Protein 7.1 Albumin 4.1 Globulin 3.0 Albumin/Globulin Ratio 1.4 ABG Interpretation ABG results: 04/17/24 15:26 ABG pH 7.43 ABG pCO2 44 ABG pO2 65 L ABG HCO3 29 H ABG O2 Saturation 94 ABG Base Excess 4 H Assessment & Plan Assessment and plan (1) Encephalopathy: Status: Resolved (2) Acute CVA (cerebrovascular accident): Status: Acute Assessment and plan: Based on the MRI brain with small acute infarct in the right parietal area. Increased signal changes in FLAIR sequence is suspicious for multiple sclerosis, send the CSF for MS panel. MRA findings with intracranial stenosis. This could have been related to longstanding uncontrolled hypertension and drug usage. Added Plavix along with aspirin with statin for prophylaxis. Follow-up with the transesophageal echocardiogram.
[2024-04-20] VITALS (11 sets, daily range): BP systolic 134–170; BP diastolic 94–109; PULSE 66–94; RESP 12–97; TEMP 36.1–37.2; O2SAT 96–99; BMI 31.4
[2024-04-20] MEDS: hydrALAZINE INJ 20 MG/ML VIAL 5 MG IV (04:48)
[2024-04-20 06:33] LABS: Basophils % (Auto) 1 % (0-2.5); Eosinophils # (Auto) 0.6 Thou/mm3 (0.0-0.5); Eosinophils % (Auto) 6 % (0-10); Hematocrit 45.4 % (41.0-53.0); Hemoglobin 15.1 g/dL (13.5-16.0); Immature Granulocytes % (Auto) 0 % (0-0); Immature Granulocytes Auto 0.01 Thou/mm3 (0.00-0.00); Lymphocytes # (Auto) 2.4 Thou/mm3 (1.0-4.8); Lymphocytes % (Auto) 27 % (10-50); Mean Corpuscular HGB Conc 33.3 g/dl (31.0-37.0); Mean Corpuscular Hemoglobin 27.8 pg (25.0-35.0); Mean Corpuscular Volume 84 fL (80-100); Monocytes # (Auto) 0.7 Thou/mm3 (0.0-0.8); Monocytes % (Auto) 8 % (0-12); Neutrophils # (Auto) 5.2 Thou/mm3 (1.8-7.7); Neutrophils % (Auto) 59 % (37-80); Nucleated Red Blood Cell % 0 /100 WBC (0); Platelet Count 276 Thou/mm3 (140-440); Red Blood Count 5.43 Miln/mm3 (4.50-5.90); White Blood Count 8.9 Thou/mm3 (3.8-10.6)
[2024-04-20 07:00] LABS: Alanine Aminotransferase 11 U/L (10-49); Albumin, Serum 4.2 gm/dL (3.5-5.0); Albumin/Globulin Ratio 1.4 (1.2-2.2); Alkaline Phosphatase 107 U/L (46-116); Anion Gap 6 (7-16); Aspartate Amino Transferase 17 U/L (0-34); BUN/Creatinine Ratio 14 Ratio (12-20); Bilirubin,Total 0.8 mg/dL (0.3-1.2); Blood Urea Nitrogen 15 mg/dL (9-23); Calcium 9.7 mg/dL (8.3-10.6); Calcium (Corrected) 9.7 mg/dL (8.5-10.1); Carbon Dioxide 27.6 mMol/L (20.0-31.0); Chloride 106 mMol/L (98-107); Creatinine (Component) 1.1 mg/dL (0.6-1.3); Estimated Creatinine Clearance 106.3 mL/min (>60); Globulin 3.1 gm/dL (2.3-3.5); Glucose 91 mg/dL (74-106); Magnesium 2.2 mg/dL (1.6-2.6); Osmolality,Calculated 280 (275-295); Potassium 4.4 mMol/L (3.4-5.1); Sodium 140 mMol/L (136-145); Total Protein 7.3 gm/dL (5.7-8.2); eGFR > 60 See Note
--- NOTE | 2024-04-20 09:19 | PC.SS ---
SS follow up note; Patient is pending a MAREK.
[2024-04-20] MEDS: ASPIRIN EC 81 MG TABEC PO (09:35)
[2024-04-20] MEDS: CLOPIDOGREL BISULFATE 75 MG TABLET PO (09:35)
[2024-04-20] MEDS: ATORVASTATIN CALCIUM 20 MG TABLET 80 MG PO (09:35)
[2024-04-20] MEDS: PANTOPRAZOLE INJ 40 MG VIAL IVP (09:35)
[2024-04-20] MEDS: HEPARIN SOD INJ 5000 UNIT/ML VIAL SC ×2 (09:36→20:03)
[2024-04-20] MEDS: NICOTINE PATCH 21 MG/24 HR PATCH.TD24 TOP (09:36)
--- NOTE | 2024-04-20 14:35 | ESPR_ITS ---
<Statement entered by Franklin Ronquillo MD - 04/27/24 07:42> I reviewed above note and agree with findings and plans. I have also personally examined the patient with medicine team and went over assessment and plan with medical team including hr intern and resident physician. Documentation for date of: 04/20/24 Subjective Subjective Interval history: Patient seen and examined at bedside. Feels better today. Overnight he was given hydralazine 10 mg x 1. He is alert and oriented x 3 but has very slow speech. Fluctuating systolic readings 150?170. Labs unremarkable. Per neurology recommendations patient to get MAREK. He was also started on Plavix 75 daily and will continue that with aspirin 81 mg and atorvastatin 80 mg daily. If MAREK is negative, will consider Holter monitor. Continue amlodipine 10 mg and lisinopril 30 mg daily. Exam Vital Signs Temp Pulse Resp BP Pulse Ox O2 Del Method 97.0 F 76 14 154/101 H 98 Room Air 04/20/24 12:00 04/20/24 12:00 04/20/24 12:00 04/20/24 12:00 04/20/24 12:04/20/24 12:00 Narrative Exam General: Awake and in no acute distress. Conversational, unkept. HEENT: Normocephalic, atraumatic, mucous membranes moist, missing teeth. Heart: Regular rate and rhythm, no murmurs. Lungs: Clear to auscultation with no wheezing or crackles. Abdomen: Soft, nondistended, nontender, positive bowel sounds. ?No guarding or rebound tenderness. Neurologic: orientation improved, no new neurological deficit, and patient able to move all 4 extremities. Extremities: No edema. Skin: No rash or ecchymoses, tattos all over Objective Labs 04/20/24 05:35 04/20/24 05:35 Labs: Laboratory Results - last 24 hr 04/20/24 05:35 WBC 8.9 RBC 5.43 Hgb 15.1 Hct 45.4 MCV 84 MCH 27.8 MCHC 33.3 RDW Std Deviation 39.0 Plt Count 276 Neut % (Auto) 59 Lymph % (Auto) 27 [place] % (Auto) 8 Eos % (Auto) 6 Baso % (Auto) 1 Neut # (Auto) 5.2 Lymph # (Auto) 2.4 [place] # (Auto) 0.7 Eos # (Auto) 0.6 H Baso # (Auto) 0.0 Immature Gran # (Auto) 0.01 H Absolute Nucleated RBC 0.00 Immature Gran % 0 Nucleated RBC % 0 Sodium 140 Potassium 4.4 D Chloride 106 Carbon Dioxide 27.6 Anion Gap 6 L BUN 15 Creatinine 1.1 Estim Creat Clear Calc 106.3 eGFR > 60 BUN/Creatinine Ratio 14 Glucose 91 Calculated Osmolality 280 Calcium 9.7 Corrected Calcium 9.7 Magnesium 2.2 Total Bilirubin 0.8 AST 17 ALT 11 Alkaline Phosphatase 107 Total Protein 7.3 Albumin 4.2 Globulin 3.1 Albumin/Globulin Ratio 1.4 ABG Interpretation ABG results: 04/17/24 15:26 ABG pH 7.43 ABG pCO2 44 ABG pO2 65 L ABG HCO3 29 H ABG O2 Saturation 94 ABG Base Excess 4 H Quality Measures Quality Measures none Assessment & Plan Assessment Current Active Medications: Generic Name Dose Route Start Last Admin Trade Name Freq PRN Reason Stop Dose Admin Acetaminophen 650 mg 04/17/24 21:19 Acetaminophen 325 Mg Tablet PO 05/17/24 21:18 Q6HR PRN Mild Pain (1-3) & Fever >101 Amlodipine Besylate 10 mg 04/19/24 21:00 04/19/24 20:49 Amlodipine Besylate 5 Mg Tablet PO 05/19/24 20:59 10 mg HS GUS Administration Aspirin 81 mg 04/18/24 09:00 04/20/24 09:35 Aspirin Ec 81 Mg Tabec PO 05/18/24 08:59 81 mg QDAY GUS Administration Atorvastatin Calcium 80 mg 04/18/24 10:45 04/20/24 09:35 Atorvastatin Calcium 20 Mg Tablet PO 05/18/24 10:44 80 mg DAILY GUS Administration Clopidogrel Bisulfate 75 mg 04/20/24 09:00 04/20/24 09:35 Clopidogrel Bisulfate 75 Mg Tablet PO 05/20/24 08:59 75 mg QDAY GUS Administration Heparin Sodium (Porcine) 5,000 unit 04/18/24 09:00 04/20/24 09:36 Heparin Sod Inj 5000 Unit/Ml Vial SC 05/02/24 08:59 5,000 unit Q12H GUS Administration Lisinopril 20 mg/ Lisinopril 30 mg 04/20/24 09:00 04/20/24 09:36 10 mg PO 05/20/24 08:59 30 mg QDAY GUS Administration Nicotine 21 mg 04/18/24 14:00 04/20/24 09:36 Nicotine Patch 21 Mg/24 Hr Patch.Td24 TOP 05/18/24 13:59 21 mg QDAY GUS Administration Ondansetron HCl 4 mg 04/17/24 19:39 Ondansetron Inj 2 Mg/Ml Inj 2 Ml IV 05/17/24 19:38 Q6H PRN NAUSEA OR VOMITING Protocol Pantoprazole Sodium 40 mg 04/18/24 09:00 04/20/24 09:35 Pantoprazole Inj 40 Mg Vial IVP 05/18/24 08:59 40 mg QDAY GUS Administration Plan Armando Cheek is a 48-year-old male with past medical history of hypertension and methamphetamine use who was BIBA to [facility] on 04/17/2024 with chief complaint of altered mental status. CT scan of head suspicious for acute infarct left parietal white matter, patient admitted for CVA workup. # Acute CVA #Acute encephalopathy-resolved Multifactorial: Infection, hypertensive emergency, has hx of methamphetamine use, denies any alcohol use current, utox positive for THC. Poor compliance with antihypertensive medication. Blood pressure 205/106 on presentation. Given labetalol in ED. CT findings of suspicious acute infarct left parietal white matter. Neurology consulted--recommended LP and MRI. LP negative for infection, elevated protein (86). MRI head showed small acute infarcts of right and left temporal lobe. Prominent chronic microvascular white matter changes. 50-70% stenosis of right ICA, 70% stenosis at origin of the right MCA. Plan: -Starts Plavix 75 mg daily, echo with bubble study per neuro -aspirin 81 mg daily -atovastatin 80mg daily -echo with bubble study pending -Head of bed elevated, keep patient euthermic and euglycemic -Neurocheck every 4 hours -Referral to physical therapy -Considering Holter monitor if MAREK is negative #Hx poorly controlled hypertension #Medication noncompliance -Amlodipine 10 mg daily ? Lisinopril 10 mg daily to 30 mg -Patient was instructed extensively on importance of compliance due to higher risk of stroke associated with his blood pressure. #Other disorders of electrolyte and fluid balance, not elsewhere classified -replete as needed #Nicotine dependence #THC dependence #History of methamphetamine use Patient denies meth use currently, reports smoking every day, reports marijuana use Consider nicotine patches as needed, smoking cessation education -Nicotine patch as needed #Hypertension emergency-resolved DVT prophylaxis: Heparin every 12 hours GI prophylaxis: IV Protonix Diet: regular Lines: Peripheral IV Code status: Full code The patient's management plan was discussed with my attending physician Dr. Ronquillo. Karen Winston PGY1
[2024-04-20] MEDS: amLODIPine BESYLATE 5 MG TABLET 10 MG PO (20:03)
--- NOTE | 2024-04-20 22:36 | PD.VPROG1 ---
Telemedicine visit statement This visit was conducted with the use of phone was obtained on 04/20/24. Documentation for date of: 04/20/24 Subjective Subjective Interval history: Patient is in telemetry. His mental status is back to baseline. He walked with the physical therapist with a walker. No new symptoms reported. No weakness or paresthesias in the extremities. Virtual exam Vital Signs Temp Pulse Resp BP Pulse Ox O2 Del Method 98.0 F 76 18 134/97 H 97 Room Air 04/20/24 20:00 04/20/24 20:03 04/20/24 20:00 04/20/24 20:03 04/20/24 20:00 04/20/24 16:00 Objective Labs 04/20/24 05:35 04/20/24 05:35 Labs: Laboratory Results - last 24 hr 04/20/24 05:35 WBC 8.9 RBC 5.43 Hgb 15.1 Hct 45.4 MCV 84 MCH 27.8 MCHC 33.3 RDW Std Deviation 39.0 Plt Count 276 Neut % (Auto) 59 Lymph % (Auto) 27 [place] % (Auto) 8 Eos % (Auto) 6 Baso % (Auto) 1 Neut # (Auto) 5.2 Lymph # (Auto) 2.4 [place] # (Auto) 0.7 Eos # (Auto) 0.6 H Baso # (Auto) 0.0 Immature Gran # (Auto) 0.01 H Absolute Nucleated RBC 0.00 Immature Gran % 0 Nucleated RBC % 0 Sodium 140 Potassium 4.4 D Chloride 106 Carbon Dioxide 27.6 Anion Gap 6 L BUN 15 Creatinine 1.1 Estim Creat Clear Calc 106.3 eGFR > 60 BUN/Creatinine Ratio 14 Glucose 91 Calculated Osmolality 280 Calcium 9.7 Corrected Calcium 9.7 Magnesium 2.2 Total Bilirubin 0.8 AST 17 ALT 11 Alkaline Phosphatase 107 Total Protein 7.3 Albumin 4.2 Globulin 3.1 Albumin/Globulin Ratio 1.4 ABG Interpretation ABG results: 04/17/24 15:26 ABG pH 7.43 ABG pCO2 44 ABG pO2 65 L ABG HCO3 29 H ABG O2 Saturation 94 ABG Base Excess 4 H Assessment & Plan Assessment 1) Encephalopathy: Status: Resolved (2) Acute CVA (cerebrovascular accident): Based on the MRI brain with small acute infarct in the right parietal area. Increased signal changes in FLAIR sequence is suspicious for multiple sclerosis, sent the CSF for MS panel. MRA findings with intracranial stenosis. This could have been related to longstanding uncontrolled hypertension and drug usage. Continue Plavix along with aspirin with statin for prophylaxis. Follow-up with the transesophageal echocardiogram.
[2024-04-21] VITALS (8 sets, daily range): BP systolic 131–154; BP diastolic 77–98; PULSE 66–84; RESP 12–19; TEMP 36.5–36.8; O2SAT 95–99
[2024-04-21 05:55] LABS: Basophils % (Auto) 0 % (0-2.5); Eosinophils # (Auto) 0.5 Thou/mm3 (0.0-0.5); Eosinophils % (Auto) 5 % (0-10); Hematocrit 44.1 % (41.0-53.0); Hemoglobin 14.9 g/dL (13.5-16.0); Immature Granulocytes % (Auto) 0 % (0-0); Immature Granulocytes Auto 0.03 Thou/mm3 (0.00-0.00); Lymphocytes # (Auto) 2.4 Thou/mm3 (1.0-4.8); Lymphocytes % (Auto) 24 % (10-50); Mean Corpuscular HGB Conc 33.8 g/dl (31.0-37.0); Mean Corpuscular Hemoglobin 28.3 pg (25.0-35.0); Mean Corpuscular Volume 84 fL (80-100); Monocytes # (Auto) 0.7 Thou/mm3 (0.0-0.8); Monocytes % (Auto) 7 % (0-12); Neutrophils # (Auto) 6.2 Thou/mm3 (1.8-7.7); Neutrophils % (Auto) 63 % (37-80); Nucleated Red Blood Cell % 0 /100 WBC (0); Platelet Count 294 Thou/mm3 (140-440); RDW Standard Deviation 39.6 fL (35.1-43.9); Red Blood Count 5.27 Miln/mm3 (4.50-5.90); White Blood Count 9.8 Thou/mm3 (3.8-10.6)
[2024-04-21 06:40] LABS: Alanine Aminotransferase 13 U/L (10-49); Albumin, Serum 3.9 gm/dL (3.5-5.0); Albumin/Globulin Ratio 1.4 (1.2-2.2); Alkaline Phosphatase 104 U/L (46-116); Anion Gap 6 (7-16); Aspartate Amino Transferase 14 U/L (0-34); BUN/Creatinine Ratio 15 Ratio (12-20); Bilirubin,Total 0.7 mg/dL (0.3-1.2); Blood Urea Nitrogen 19 mg/dL (9-23); Calcium 9.5 mg/dL (8.3-10.6); Calcium (Corrected) 9.6 mg/dL (8.5-10.1); Carbon Dioxide 23.8 mMol/L (20.0-31.0); Chloride 107 mMol/L (98-107); Creatinine (Component) 1.3 mg/dL (0.6-1.3); Estimated Creatinine Clearance 90.2 mL/min (>60); Globulin 2.8 gm/dL (2.3-3.5); Glucose 99 mg/dL (74-106); Osmolality,Calculated 276 (275-295); Potassium 4.1 mMol/L (3.4-5.1); Sodium 137 mMol/L (136-145); Total Protein 6.7 gm/dL (5.7-8.2); eGFR > 60 See Note
[2024-04-21] MEDS: CLOPIDOGREL BISULFATE 75 MG TABLET PO (08:05)
[2024-04-21] MEDS: ATORVASTATIN CALCIUM 20 MG TABLET 80 MG PO (08:05)
[2024-04-21] MEDS: ASPIRIN EC 81 MG TABEC PO (08:05)
[2024-04-21] MEDS: HEPARIN SOD INJ 5000 UNIT/ML VIAL SC ×2 (08:06→20:12)
[2024-04-21] MEDS: PANTOPRAZOLE INJ 40 MG VIAL IVP (08:06)
[2024-04-21] MEDS: NICOTINE PATCH 21 MG/24 HR PATCH.TD24 TOP (08:07)
--- NOTE | 2024-04-21 12:41 | ESPR_ITS ---
<Statement entered by Franklin Ronquillo MD - 04/27/24 07:44> I reviewed above note and agree with findings and plans. I have also personally examined the patient with medicine team and went over assessment and plan with medical team including buying intern and resident physician. Documentation for date of: 04/21/24 Subjective Subjective Interval history: Patient was seen at bedside this morning. No overnight events. Patient blood pressure seems more well-controlled now with amlodipine and lisinopril. Patient's echo was taken but has still not been read. Will follow-up on echo read and patient will most likely need MAREK if echo comes back negative. No other complaints at this time. Exam Vital Signs Temp Pulse Resp BP Pulse Ox O2 Del Method 97.7 F 68 19 137/94 H 99 Room Air 04/21/24 12:00 04/21/24 12:00 04/21/24 12:00 04/21/24 12:00 04/21/24 12:04/21/24 12:00 Narrative Exam General: A/O x3, no acute distress, disheveled Eyes: PERRL, EOMI. Anicteric, vision grossly intact. Ears: No ear pain, no ear discharge, Hearing grossly intact. Nose: No nasal discharge. Mouth/Throat: Moist mucous membranes, poor dentation, no redness, no lesions. Neck: Neck supple, non-tender, no cervical lymphadenopathy. Lungs: Clear SANTANA to auscultation and percussion, No accessory muscle use. Cardio: Normal S1/S2, regular rhythm, no murmurs, no JVD Abdomen: Soft, non-tender, no palpable masses, peristalsis present, no guarding or rebound. Extremities: Symmetrical, no significant deformities, no peripheral edema , non-tender, peripheral pulses presents. Skin: No rashes, no lesions, warm to touch. Neuro: No focal neurological deficits. motor strength 5/5 SANTANA UE and LE. R LE and R UE decreased sensation compared to L UE and L LE Psych: Cooperative, appropriate mood and effect. Objective Labs 04/21/24 05:37 04/21/24 05:37 Labs: Laboratory Results - last 24 hr 04/21/24 05:37 WBC 9.8 RBC 5.27 Hgb 14.9 Hct 44.1 MCV 84 MCH 28.3 MCHC 33.8 RDW Std Deviation 39.6 Plt Count 294 Neut % (Auto) 63 Lymph % (Auto) 24 [place] % (Auto) 7 Eos % (Auto) 5 Baso % (Auto) 0 Neut # (Auto) 6.2 Lymph # (Auto) 2.4 [place] # (Auto) 0.7 Eos # (Auto) 0.5 Baso # (Auto) 0.0 Immature Gran # (Auto) 0.03 H Absolute Nucleated RBC 0.00 Immature Gran % 0 Nucleated RBC % 0 Sodium 137 Potassium 4.1 Chloride 107 Carbon Dioxide 23.8 Anion Gap 6 L BUN 19 Creatinine 1.3 Estim Creat Clear Calc 90.2 eGFR > 60 BUN/Creatinine Ratio 15 Glucose 99 Calculated Osmolality 276 Calcium 9.5 Corrected Calcium 9.6 Total Bilirubin 0.7 AST 14 ALT 13 Alkaline Phosphatase 104 Total Protein 6.7 Albumin 3.9 Globulin 2.8 Albumin/Globulin Ratio 1.4 ABG Interpretation ABG results: 04/17/24 15:26 ABG pH 7.43 ABG pCO2 44 ABG pO2 65 L ABG HCO3 29 H ABG O2 Saturation 94 ABG Base Excess 4 H Quality Measures Quality Measures none Assessment & Plan Assessment Current Active Medications: Generic Name Dose Route Start Last Admin Trade Name Freq PRN Reason Stop Dose Admin Acetaminophen 650 mg 04/17/24 21:19 Acetaminophen 325 Mg Tablet PO 05/17/24 21:18 Q6HR PRN Mild Pain (1-3) & Fever >101 Amlodipine Besylate 10 mg 04/19/24 21:00 04/20/24 20:03 Amlodipine Besylate 5 Mg Tablet PO 05/19/24 20:59 10 mg HS GUS Administration Aspirin 81 mg 04/18/24 09:00 04/21/24 08:05 Aspirin Ec 81 Mg Tabec PO 05/18/24 08:59 81 mg QDAY GUS Administration Atorvastatin Calcium 80 mg 04/18/24 10:45 04/21/24 08:05 Atorvastatin Calcium 20 Mg Tablet PO 05/18/24 10:44 80 mg DAILY GUS Administration Clopidogrel Bisulfate 75 mg 04/20/24 09:00 04/21/24 08:05 Clopidogrel Bisulfate 75 Mg Tablet PO 05/20/24 08:59 75 mg QDAY GUS Administration Heparin Sodium (Porcine) 5,000 unit 04/18/24 09:00 04/21/24 08:06 Heparin Sod Inj 5000 Unit/Ml Vial SC 05/02/24 08:59 5,000 unit Q12H GUS Administration Lisinopril 20 mg/ Lisinopril 30 mg 04/20/24 09:00 04/21/24 08:05 10 mg PO 05/20/24 08:59 30 mg QDAY GUS Administration Nicotine 21 mg 04/18/24 14:00 04/21/24 08:07 Nicotine Patch 21 Mg/24 Hr Patch.Td24 TOP 05/18/24 13:59 21 mg QDAY GUS Administration Ondansetron HCl 4 mg 04/17/24 19:39 Ondansetron Inj 2 Mg/Ml Inj 2 Ml IV 05/17/24 19:38 Q6H PRN NAUSEA OR VOMITING Protocol Pantoprazole Sodium 40 mg 04/18/24 09:00 04/21/24 08:06 Pantoprazole Inj 40 Mg Vial IVP 05/18/24 08:59 40 mg QDAY GUS Administration Plan 48-year-old male with past medical history of hypertension and meth use was admitted to the hospital on 04/17/2024 due to acute encephalopathy. #Acute CVA #Acute encephalopathy-resolved Multifactorial: Infection, hypertensive emergency, has hx of methamphetamine use, denies any alcohol use current, utox positive for THC. Poor compliance with antihypertensive medication. Blood pressure 205/106 on presentation. Given labetalol in ED. CT findings of suspicious acute infarct left parietal white matter. Neurology consulted--recommended LP and MRI. LP negative for infection, elevated protein (86). MRI head showed small acute infarcts of right and left temporal lobe. Prominent chronic microvascular white matter changes. 50-70% stenosis of right ICA, 70% stenosis at origin of the right MCA. Plan: -Continue Plavix 75 mg daily -aspirin 81 mg daily -atovastatin 80mg daily -echo with bubble study pending read -Head of bed elevated, keep patient euthermic and euglycemic -Neurocheck every 4 hours -Referral to physical therapy -Considering Holter monitor if MAREK is negative #Hx poorly controlled hypertension #Medication noncompliance -Amlodipine 10 mg daily ? Lisinopril 30 mg -Patient was instructed extensively on importance of compliance due to higher risk of stroke associated with his blood pressure. #Electrolyte imbalance -replete as needed #Nicotine dependence #THC dependence #History of methamphetamine use Patient denies meth use currently, reports smoking every day, reports marijuana use -Nicotine patch as needed #Hypertension emergency-resolved Disposition: Pending echo read and possible MAREK Diet: Regular GI prophylaxis: protonix DVT prophylaxis: heparin sc Code: Full Case disclosed with Attending Dr. Yg Bernard PGY1
[2024-04-21] MEDS: amLODIPine BESYLATE 5 MG TABLET 10 MG PO (20:11)
--- NOTE | 2024-04-21 23:11 | VVPN_ITS ---
Telemedicine visit statement This visit was conducted with the use of interactive audio and video telecommunications system that permits real time communication between the patient and the provider. Patient's verbal consent for virtual visit was obtained on 04/21/24 at 2311. Documentation for date of: 04/21/24 Subjective Subjective Interval history: Patient is in telemetry. His mental status is back to baseline. He walked with the physical therapist with a walker. No new symptoms reported. No weakness or paresthesias in the extremities. Virtual exam Vital Signs Temp Pulse Resp BP Pulse Ox O2 Del Method 97.9 F 66 12 154/84 H 95 Room Air 04/21/24 20:00 04/21/24 20:11 04/21/24 20:00 04/21/24 20:11 04/21/24 20:00 04/21/24 20:00 Objective Labs 04/21/24 05:37 04/21/24 05:37 Labs: Laboratory Results - last 24 hr 04/21/24 05:37 WBC 9.8 RBC 5.27 Hgb 14.9 Hct 44.1 MCV 84 MCH 28.3 MCHC 33.8 RDW Std Deviation 39.6 Plt Count 294 Neut % (Auto) 63 Lymph % (Auto) 24 [place] % (Auto) 7 Eos % (Auto) 5 Baso % (Auto) 0 Neut # (Auto) 6.2 Lymph # (Auto) 2.4 [place] # (Auto) 0.7 Eos # (Auto) 0.5 Baso # (Auto) 0.0 Immature Gran # (Auto) 0.03 H Absolute Nucleated RBC 0.00 Immature Gran % 0 Nucleated RBC % 0 Sodium 137 Potassium 4.1 Chloride 107 Carbon Dioxide 23.8 Anion Gap 6 L BUN 19 Creatinine 1.3 Estim Creat Clear Calc 90.2 eGFR > 60 BUN/Creatinine Ratio 15 Glucose 99 Calculated Osmolality 276 Calcium 9.5 Corrected Calcium 9.6 Total Bilirubin 0.7 AST 14 ALT 13 Alkaline Phosphatase 104 Total Protein 6.7 Albumin 3.9 Globulin 2.8 Albumin/Globulin Ratio 1.4 ABG Interpretation ABG results: 04/17/24 15:26 ABG pH 7.43 ABG pCO2 44 ABG pO2 65 L ABG HCO3 29 H ABG O2 Saturation 94 ABG Base Excess 4 H Assessment & Plan Assessment 1) Encephalopathy: Status: Resolved (2) Acute CVA (cerebrovascular accident): Based on the MRI brain with small acute infarct in the right parietal area. Increased signal changes in FLAIR sequence is suspicious for multiple sclerosis, sent the CSF for MS panel. MRA findings with intracranial stenosis. This could have been related to longstanding uncontrolled hypertension and drug usage. Continue Plavix along with aspirin with statin for prophylaxis. Follow-up with the transesophageal echocardiogram.
[2024-04-22] VITALS (8 sets, daily range): BP systolic 139–166; BP diastolic 77–98; PULSE 63–80; RESP 12–17; TEMP 36.3–37.1; O2SAT 94–100; BMI 31.6
[2024-04-22 06:05] LABS: Basophils # (Auto) 0.1 Thou/mm3 (0.0-0.2); Basophils % (Auto) 1 % (0-2.5); Eosinophils # (Auto) 0.5 Thou/mm3 (0.0-0.5); Eosinophils % (Auto) 5 % (0-10); Hematocrit 43.3 % (41.0-53.0); Hemoglobin 14.6 g/dL (13.5-16.0); Immature Granulocytes % (Auto) 0 % (0-0); Immature Granulocytes Auto 0.03 Thou/mm3 (0.00-0.00); Lymphocytes # (Auto) 2.2 Thou/mm3 (1.0-4.8); Lymphocytes % (Auto) 22 % (10-50); Mean Corpuscular HGB Conc 33.7 g/dl (31.0-37.0); Mean Corpuscular Hemoglobin 28.1 pg (25.0-35.0); Mean Corpuscular Volume 83 fL (80-100); Monocytes # (Auto) 0.8 Thou/mm3 (0.0-0.8); Monocytes % (Auto) 8 % (0-12); Neutrophils # (Auto) 6.6 Thou/mm3 (1.8-7.7); Neutrophils % (Auto) 65 % (37-80); Nucleated Red Blood Cell % 0 /100 WBC (0); Platelet Count 270 Thou/mm3 (140-440); RDW Standard Deviation 38.3 fL (35.1-43.9); Red Blood Count 5.19 Miln/mm3 (4.50-5.90); White Blood Count 10.1 Thou/mm3 (3.8-10.6)
[2024-04-22 06:27] LABS: Alanine Aminotransferase 17 U/L (10-49); Albumin, Serum 3.9 gm/dL (3.5-5.0); Albumin/Globulin Ratio 1.3 (1.2-2.2); Alkaline Phosphatase 107 U/L (46-116); Anion Gap 7 (7-16); Aspartate Amino Transferase 22 U/L (0-34); BUN/Creatinine Ratio 17 Ratio (12-20); Bilirubin,Total 0.7 mg/dL (0.3-1.2); Blood Urea Nitrogen 20 mg/dL (9-23); Calcium 9.5 mg/dL (8.3-10.6); Calcium (Corrected) 9.6 mg/dL (8.5-10.1); Chloride 108 mMol/L (98-107); Creatinine (Component) 1.2 mg/dL (0.6-1.3); Estimated Creatinine Clearance 97.7 mL/min (>60); Globulin 3.1 gm/dL (2.3-3.5); Glucose 96 mg/dL (74-106); Osmolality,Calculated 280 (275-295); Potassium 4.1 mMol/L (3.4-5.1); Sodium 139 mMol/L (136-145); eGFR > 60 See Note
[2024-04-22] MEDS: ATORVASTATIN CALCIUM 20 MG TABLET 80 MG PO (09:24)
[2024-04-22] MEDS: ASPIRIN EC 81 MG TABEC PO (09:24)
[2024-04-22] MEDS: HEPARIN SOD INJ 5000 UNIT/ML VIAL SC ×2 (09:24→20:03)
[2024-04-22] MEDS: PANTOPRAZOLE INJ 40 MG VIAL IVP (09:25)
[2024-04-22] MEDS: CLOPIDOGREL BISULFATE 75 MG TABLET PO (09:25)
[2024-04-22] MEDS: NICOTINE PATCH 21 MG/24 HR PATCH.TD24 TOP (09:25)
--- NOTE | 2024-04-22 11:44 | ESPR_ITS ---
<Statement entered by Franklin Ronquillo MD - 04/27/24 07:46> I reviewed above note and agree with findings and plans. I have also personally examined the patient with medicine team and went over assessment and plan with medical team including international marketing intern and resident physician. <Statement entered by Coral Payan MD - 04/22/24 13:57> I discussed with and supervised my co-resident involved in the care of this patient. I agree with the assessment and plan as documented above. No acute events overnight. Blood pressure controlled with amlodipine 10, lisinopril 30. On aspirin, plavix, statin for stroke. Pending echo. Coral Payan MD PGY-3 Documentation for date of: 04/22/24 Subjective Subjective Interval history: Patient examined at bedside. No major complaints, no events overnight. Resting comfortably. Blood pressure remains well-controlled on amlodipine 10 mg and lisinopril 30 mg. Read on echo bubble study is pending. Vitals stable, labs unremarkable. Exam Vital Signs Temp Pulse Resp BP Pulse Ox O2 Del Method 97.9 F 67 17 146/90 H 94 L Room Air 04/22/24 08:00 04/22/24 09:22 04/22/24 08:00 04/22/24 09:22 04/22/24 08:00 04/22/24 08:00 Narrative Exam General: Awake and in no acute distress, unkempt. HEENT: Normocephalic, atraumatic, mucous membranes moist, missing teeth. Heart: Regular rate and rhythm, no murmurs. Lungs: Clear to auscultation with no wheezing or crackles. Abdomen: Soft, nondistended, nontender, positive bowel sounds. ?No guarding or rebound tenderness. Neurologic: orientation improved, no new neurological deficit, and patient able to move all 4 extremities. Extremities: No edema. Skin: No rash or ecchymoses, tattos all over Objective Labs 04/22/24 05:38 04/22/24 05:38 Labs: Laboratory Results - last 24 hr 04/22/24 05:38 WBC 10.1 RBC 5.19 Hgb 14.6 Hct 43.3 MCV 83 MCH 28.1 MCHC 33.7 RDW Std Deviation 38.3 Plt Count 270 Neut % (Auto) 65 Lymph % (Auto) 22 [place] % (Auto) 8 Eos % (Auto) 5 Baso % (Auto) 1 Neut # (Auto) 6.6 Lymph # (Auto) 2.2 [place] # (Auto) 0.8 Eos # (Auto) 0.5 Baso # (Auto) 0.1 Immature Gran # (Auto) 0.03 H Absolute Nucleated RBC 0.00 Immature Gran % 0 Nucleated RBC % 0 Sodium 139 Potassium 4.1 Chloride 108 H Carbon Dioxide 24.0 Anion Gap 7 BUN 20 Creatinine 1.2 Estim Creat Clear Calc 97.7 eGFR > 60 BUN/Creatinine Ratio 17 Glucose 96 Calculated Osmolality 280 Calcium 9.5 Corrected Calcium 9.6 Total Bilirubin 0.7 AST 22 ALT 17 Alkaline Phosphatase 107 Total Protein 7.0 Albumin 3.9 Globulin 3.1 Albumin/Globulin Ratio 1.3 ABG Interpretation ABG results: 04/17/24 15:26 ABG pH 7.43 ABG pCO2 44 ABG pO2 65 L ABG HCO3 29 H ABG O2 Saturation 94 ABG Base Excess 4 H Quality Measures Quality Measures none Assessment & Plan Assessment Current Active Medications: Generic Name Dose Route Start Last Admin Trade Name Freq PRN Reason Stop Dose Admin Acetaminophen 650 mg 04/17/24 21:19 Acetaminophen 325 Mg Tablet PO 05/17/24 21:18 Q6HR PRN Mild Pain (1-3) & Fever >101 Amlodipine Besylate 10 mg 04/19/24 21:00 04/21/24 20:11 Amlodipine Besylate 5 Mg Tablet PO 05/19/24 20:59 10 mg HS GUS Administration Aspirin 81 mg 04/18/24 09:00 04/22/24 09:24 Aspirin Ec 81 Mg Tabec PO 05/18/24 08:59 81 mg QDAY GUS Administration Atorvastatin Calcium 80 mg 04/18/24 10:45 04/22/24 09:24 Atorvastatin Calcium 20 Mg Tablet PO 05/18/24 10:44 80 mg DAILY GUS Administration Clopidogrel Bisulfate 75 mg 04/20/24 09:00 04/22/24 09:25 Clopidogrel Bisulfate 75 Mg Tablet PO 05/20/24 08:59 75 mg QDAY GUS Administration Heparin Sodium (Porcine) 5,000 unit 04/18/24 09:00 04/22/24 09:24 Heparin Sod Inj 5000 Unit/Ml Vial SC 05/02/24 08:59 5,000 unit Q12H GUS Administration Lisinopril 20 mg/ Lisinopril 30 mg 04/20/24 09:00 04/22/24 09:22 10 mg PO 05/20/24 08:59 30 mg QDAY GUS Administration Nicotine 21 mg 04/18/24 14:00 04/22/24 09:25 Nicotine Patch 21 Mg/24 Hr Patch.Td24 TOP 05/18/24 13:59 21 mg QDAY GUS Administration Ondansetron HCl 4 mg 04/17/24 19:39 Ondansetron Inj 2 Mg/Ml Inj 2 Ml IV 05/17/24 19:38 Q6H PRN NAUSEA OR VOMITING Protocol Pantoprazole Sodium 40 mg 04/18/24 09:00 04/22/24 09:25 Pantoprazole Inj 40 Mg Vial IVP 05/18/24 08:59 40 mg QDAY GUS Administration Plan 48-year-old male with past medical history of hypertension and meth use was admitted to the hospital on 04/17/2024 due to acute encephalopathy. #Acute CVA #Acute encephalopathy-resolved Multifactorial: Infection, hypertensive emergency, has hx of methamphetamine use, denies any alcohol use current, utox positive for THC. Poor compliance with antihypertensive medication. Blood pressure 205/106 on presentation. Given labetalol in ED. CT findings of suspicious acute infarct left parietal white matter. Neurology consulted--recommended LP and MRI. LP negative for infection, elevated protein (86). MRI head showed small acute infarcts of right and left temporal lobe. Prominent chronic microvascular white matter changes. 50-70% stenosis of right ICA, 70% stenosis at origin of the right MCA. Plan: -Continue Plavix 75 mg daily -aspirin 81 mg daily -atovastatin 80mg daily -echo with bubble study pending read -Head of bed elevated, keep patient euthermic and euglycemic -Considering Holter monitor if MAREK is negative #Hx poorly controlled hypertension #Medication noncompliance -Amlodipine 10 mg daily ? Lisinopril 30 mg -Patient was instructed extensively on importance of compliance due to higher risk of stroke associated with his blood pressure. #Electrolyte imbalance -replete as needed #Nicotine dependence #THC dependence #History of methamphetamine use Patient denies meth use currently, reports smoking every day, reports marijuana use -Nicotine patch as needed #Hypertension emergency-resolved Disposition: Pending echo read and possible MAREK Diet: Regular GI prophylaxis: protonix DVT prophylaxis: heparin sc Code: Full The patient's management plan was discussed with my attending physician Dr. Ronquillo and senior Dr. Payan. Karen Winston, PGY-1
--- NOTE | 2024-04-22 13:55 | ESPR_ITS ---
Documentation for date of: 04/22/24 Subjective Subjective Interval history: Patient seen and examined in telemetry. Mother at bedside. Patient's mentation is on baseline. Able to follow verbal commands. We are able to walk with patient with a walker across the [place] and came back. Patient usually uses a cane for mobility around the house. Exam Vital Signs Temp Pulse Resp BP Pulse Ox O2 Del Method 97.3 F 77 17 147/95 H 96 Room Air 04/22/24 12:00 04/22/24 12:00 04/22/24 12:00 04/22/24 12:00 04/22/24 12:04/22/24 12:00 Narrative Exam Constitutional: AOx3, able to speak full sentences HEENT: NC/AT, PERRLA, oral mucosa moist, neck supple CVS: RRR, S1-S2 present, no murmurs RESP: CTAB GI: non distended, non tender to palpation, NBS MSK: full ROM, no peripheral edema, peripheral pulses present Skin: warm and dry, no rashes NEURO:? ? MENTAL STATUS:?AAOx3 ? LANG/SPEECH: slow Fluent, intact naming, repetition & comprehension ? CRANIAL NERVES: ? II: Pupils equal and reactive, no RAPD,?normal visual field and fundus ? III, IV, : EOM intact, no gaze preference or deviation ? V: normal ? VII: no facial asymmetry ? VIII: normal hearing to speech ? MOTOR: 4/5 in both upper and lower extremities ? REFLEXES: 2/4 throughout,?bilateral flexor plantars ? SENSORY: Normal to touch, temperature & pin prick in all extremiteis ? COORD: Normal finger to nose and heel to coombs, no tremor, no dysmetria, gait is narrow and slow Objective Labs 04/22/24 05:38 04/22/24 05:38 Labs: Laboratory Results - last 24 hr 04/22/24 05:38 WBC 10.1 RBC 5.19 Hgb 14.6 Hct 43.3 MCV 83 MCH 28.1 MCHC 33.7 RDW Std Deviation 38.3 Plt Count 270 Neut % (Auto) 65 Lymph % (Auto) 22 [place] % (Auto) 8 Eos % (Auto) 5 Baso % (Auto) 1 Neut # (Auto) 6.6 Lymph # (Auto) 2.2 [place] # (Auto) 0.8 Eos # (Auto) 0.5 Baso # (Auto) 0.1 Immature Gran # (Auto) 0.03 H Absolute Nucleated RBC 0.00 Immature Gran % 0 Nucleated RBC % 0 Sodium 139 Potassium 4.1 Chloride 108 H Carbon Dioxide 24.0 Anion Gap 7 BUN 20 Creatinine 1.2 Estim Creat Clear Calc 97.7 eGFR > 60 BUN/Creatinine Ratio 17 Glucose 96 Calculated Osmolality 280 Calcium 9.5 Corrected Calcium 9.6 Total Bilirubin 0.7 AST 22 ALT 17 Alkaline Phosphatase 107 Total Protein 7.0 Albumin 3.9 Globulin 3.1 Albumin/Globulin Ratio 1.3 ABG Interpretation ABG results: 04/17/24 15:26 ABG pH 7.43 ABG pCO2 44 ABG pO2 65 L ABG HCO3 29 H ABG O2 Saturation 94 ABG Base Excess 4 H Quality Measures Quality Measures none Assessment & Plan Assessment Current Active Medications: Generic Name Dose Route Start Last Admin Trade Name Freq PRN Reason Stop Dose Admin Acetaminophen 650 mg 04/17/24 21:19 Acetaminophen 325 Mg Tablet PO 05/17/24 21:18 Q6HR PRN Mild Pain (1-3) & Fever >101 Amlodipine Besylate 10 mg 04/19/24 21:00 04/21/24 20:11 Amlodipine Besylate 5 Mg Tablet PO 05/19/24 20:59 10 mg HS GUS Administration Aspirin 81 mg 04/18/24 09:00 04/22/24 09:24 Aspirin Ec 81 Mg Tabec PO 05/18/24 08:59 81 mg QDAY GUS Administration Atorvastatin Calcium 80 mg 04/18/24 10:45 04/22/24 09:24 Atorvastatin Calcium 20 Mg Tablet PO 05/18/24 10:44 80 mg DAILY GUS Administration Clopidogrel Bisulfate 75 mg 04/20/24 09:00 04/22/24 09:25 Clopidogrel Bisulfate 75 Mg Tablet PO 05/20/24 08:59 75 mg QDAY GUS Administration Heparin Sodium (Porcine) 5,000 unit 04/18/24 09:00 04/22/24 09:24 Heparin Sod Inj 5000 Unit/Ml Vial SC 05/02/24 08:59 5,000 unit Q12H GUS Administration Lisinopril 20 mg/ Lisinopril 30 mg 04/20/24 09:00 04/22/24 09:22 10 mg PO 05/20/24 08:59 30 mg QDAY GUS Administration Nicotine 21 mg 04/18/24 14:00 04/22/24 09:25 Nicotine Patch 21 Mg/24 Hr Patch.Td24 TOP 05/18/24 13:59 21 mg QDAY GUS Administration Ondansetron HCl 4 mg 04/17/24 19:39 Ondansetron Inj 2 Mg/Ml Inj 2 Ml IV 05/17/24 19:38 Q6H PRN NAUSEA OR VOMITING Protocol Pantoprazole Sodium 40 mg 04/18/24 09:00 04/22/24 09:25 Pantoprazole Inj 40 Mg Vial IVP 05/18/24 08:59 40 mg QDAY GUS Administration Plan (1) Acute CVA (cerebrovascular accident): Assessment: Based on the MRI brain with small acute infarct in the right parietal area. Increased signal changes in FLAIR sequence is suspicious for multiple sclerosis, sent the CSF for MS panel. MRA findings with intracranial stenosis. This could have been related to longstanding uncontrolled hypertension and drug usage. TTE showed EF 55% with negative bubble study Recommendations: Continue Plavix along with aspirin with statin for prophylaxis. F/u MS panel - Patient's care was discussed with my attending physician, Dr. Lavern Grijalva MD Internal Medicine PGY-3 Attending Provider Attestation/Addendum I personally have seen and examined the patient with the resident at the bedside and I agree with the residents findings assessment and plan of care. Continue with aspirin, Plavix and statin for prophylaxis. Will follow-up with the MS panel on the CSF when it becomes available. Advised cessation from methamphetamine.
[2024-04-22] MEDS: amLODIPine BESYLATE 5 MG TABLET 10 MG PO (20:03)
[2024-04-23] VITALS (9 sets, daily range): BP systolic 122–152; BP diastolic 67–90; PULSE 58–85; RESP 12–19; TEMP 36.1–36.7; O2SAT 94–97; BMI 30.5
[2024-04-23 05:12] LABS: Basophils % (Auto) 0 % (0-2.5); Eosinophils # (Auto) 0.5 Thou/mm3 (0.0-0.5); Eosinophils % (Auto) 5 % (0-10); Hematocrit 41.7 % (41.0-53.0); Hemoglobin 13.9 g/dL (13.5-16.0); Immature Granulocytes % (Auto) 0 % (0-0); Immature Granulocytes Auto 0.04 Thou/mm3 (0.00-0.00); Lymphocytes # (Auto) 2.8 Thou/mm3 (1.0-4.8); Lymphocytes % (Auto) 26 % (10-50); Mean Corpuscular HGB Conc 33.3 g/dl (31.0-37.0); Mean Corpuscular Hemoglobin 28.3 pg (25.0-35.0); Mean Corpuscular Volume 85 fL (80-100); Monocytes % (Auto) 9 % (0-12); Neutrophils # (Auto) 6.5 Thou/mm3 (1.8-7.7); Neutrophils % (Auto) 60 % (37-80); Nucleated Red Blood Cell % 0 /100 WBC (0); Platelet Count 268 Thou/mm3 (140-440); RDW Standard Deviation 39.3 fL (35.1-43.9); Red Blood Count 4.91 Miln/mm3 (4.50-5.90); White Blood Count 10.8 Thou/mm3 (3.8-10.6)
[2024-04-23 05:58] LABS: Alanine Aminotransferase 22 U/L (10-49); Albumin/Globulin Ratio 1.4 (1.2-2.2); Anion Gap 6 (7-16); Aspartate Amino Transferase 22 U/L (0-34); BUN/Creatinine Ratio 16 Ratio (12-20); Bilirubin,Total 0.5 mg/dL (0.3-1.2); Blood Urea Nitrogen 22 mg/dL (9-23); Calcium 9.2 mg/dL (8.3-10.6); Calcium (Corrected) 9.2 mg/dL (8.5-10.1); Carbon Dioxide 25.2 mMol/L (20.0-31.0); Chloride 107 mMol/L (98-107); Creatinine (Component) 1.4 mg/dL (0.6-1.3); Estimated Creatinine Clearance 83.7 mL/min (>60); Globulin 2.8 gm/dL (2.3-3.5); Glucose 102 mg/dL (74-106); Osmolality,Calculated 278 (275-295); Potassium 4.1 mMol/L (3.4-5.1); Sodium 138 mMol/L (136-145); Total Protein 6.8 gm/dL (5.7-8.2); eGFR > 60 See Note
[2024-04-23 06:14] LABS: Alkaline Phosphatase 110 U/L (46-116)
[2024-04-23] MEDS: HEPARIN SOD INJ 5000 UNIT/ML VIAL SC ×2 (08:52→20:13)
[2024-04-23] MEDS: PANTOPRAZOLE INJ 40 MG VIAL IVP (08:52)
[2024-04-23] MEDS: ASPIRIN EC 81 MG TABEC PO (08:53)
[2024-04-23] MEDS: CLOPIDOGREL BISULFATE 75 MG TABLET PO (08:53)
[2024-04-23] MEDS: ATORVASTATIN CALCIUM 20 MG TABLET 80 MG PO (08:53)
[2024-04-23] MEDS: NICOTINE PATCH 21 MG/24 HR PATCH.TD24 TOP (08:53)
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
--- NOTE | 2024-04-23 09:28 | ESPR_ITS ---
<Statement entered by Franklin Ronquillo MD - 04/27/24 07:48> I reviewed above note and agree with findings and plans. I have also personally examined the patient with medicine team and went over assessment and plan with medical team including pr intern and resident physician. <Statement entered by Coral Payan MD - 04/23/24 13:42> I discussed with and supervised my co-resident involved in the care of this patient. I agree with the assessment and plan as documented above. No acute problems overnight. TTE no PFO. Will consult cardio for evaluation for TTE due to stroke with embolic pattern. Continuing aspirin, plavix, anti-hypertensives. Coral Payan MD PGY-3 Documentation for date of: 04/23/24 Subjective Subjective Interval history: Patient examined at bedside. Vitals are stable. Labs unremarkable. No major complaints. TTE with bubble study was negative. Patient to undergo MAREK to evaluate for any vegetations/valve defects. On aspirin, plavix, statin for stroke. Continue physical therapy. Exam Vital Signs Temp Pulse Resp BP Pulse Ox O2 Del Method 98.1 F 64 12 139/90 H 97 Room Air 04/23/24 07:54 04/23/24 08:53 04/23/24 07:54 04/23/24 08:53 04/23/24 07:54 04/23/24 07:54 Narrative Exam General: Awake and in no acute distress, unkempt. HEENT: Normocephalic, atraumatic, mucous membranes moist, missing teeth. Heart: Regular rate and rhythm, no murmurs. Lungs: Clear to auscultation with no wheezing or crackles. Abdomen: Soft, nondistended, nontender, positive bowel sounds. ?No guarding or rebound tenderness. Neurologic: orientation improved, no new neurological deficit, and patient able to move all 4 extremities. Extremities: No edema. Skin: No rash or ecchymoses, tattos all over Objective Labs 04/23/24 04:44 04/23/24 04:44 Labs: Laboratory Results - last 24 hr 04/23/24 04:44 WBC 10.8 H RBC 4.91 Hgb 13.9 Hct 41.7 MCV 85 MCH 28.3 MCHC 33.3 RDW Std Deviation 39.3 Plt Count 268 Neut % (Auto) 60 Lymph % (Auto) 26 [place] % (Auto) 9 Eos % (Auto) 5 Baso % (Auto) 0 Neut # (Auto) 6.5 Lymph # (Auto) 2.8 [place] # (Auto) 1.0 H Eos # (Auto) 0.5 Baso # (Auto) 0.0 Immature Gran # (Auto) 0.04 H Absolute Nucleated RBC 0.00 Immature Gran % 0 Nucleated RBC % 0 Sodium 138 Potassium 4.1 Chloride 107 Carbon Dioxide 25.2 Anion Gap 6 L BUN 22 Creatinine 1.4 H Estim Creat Clear Calc 83.7 eGFR > 60 BUN/Creatinine Ratio 16 Glucose 102 Calculated Osmolality 278 Calcium 9.2 Corrected Calcium 9.2 Total Bilirubin 0.5 AST 22 ALT 22 Alkaline Phosphatase 110 Total Protein 6.8 Albumin 4.0 Globulin 2.8 Albumin/Globulin Ratio 1.4 ABG Interpretation ABG results: 04/17/24 15:26 ABG pH 7.43 ABG pCO2 44 ABG pO2 65 L ABG HCO3 29 H ABG O2 Saturation 94 ABG Base Excess 4 H Quality Measures Quality Measures none Assessment & Plan Assessment Current Active Medications: Generic Name Dose Route Start Last Admin Trade Name Freq PRN Reason Stop Dose Admin Acetaminophen 650 mg 04/17/24 21:19 Acetaminophen 325 Mg Tablet PO 05/17/24 21:18 Q6HR PRN Mild Pain (1-3) & Fever >101 Amlodipine Besylate 10 mg 04/19/24 21:00 04/22/24 20:03 Amlodipine Besylate 5 Mg Tablet PO 05/19/24 20:59 10 mg HS GUS Administration Aspirin 81 mg 04/18/24 09:00 04/23/24 08:53 Aspirin Ec 81 Mg Tabec PO 05/18/24 08:59 81 mg QDAY GUS Administration Atorvastatin Calcium 80 mg 04/18/24 10:45 04/23/24 08:53 Atorvastatin Calcium 20 Mg Tablet PO 05/18/24 10:44 80 mg DAILY GUS Administration Clopidogrel Bisulfate 75 mg 04/20/24 09:00 04/23/24 08:53 Clopidogrel Bisulfate 75 Mg Tablet PO 05/20/24 08:59 75 mg QDAY GUS Administration Heparin Sodium (Porcine) 5,000 unit 04/18/24 09:00 04/23/24 08:52 Heparin Sod Inj 5000 Unit/Ml Vial SC 05/02/24 08:59 5,000 unit Q12H GUS Administration Lisinopril 20 mg/ Lisinopril 30 mg 04/20/24 09:00 04/23/24 08:53 10 mg PO 05/20/24 08:59 30 mg QDAY GUS Administration Nicotine 21 mg 04/18/24 14:00 04/23/24 08:53 Nicotine Patch 21 Mg/24 Hr Patch.Td24 TOP 05/18/24 13:59 21 mg QDAY GUS Administration Ondansetron HCl 4 mg 04/17/24 19:39 Ondansetron Inj 2 Mg/Ml Inj 2 Ml IV 05/17/24 19:38 Q6H PRN NAUSEA OR VOMITING Protocol Pantoprazole Sodium 40 mg 04/18/24 09:00 04/23/24 08:52 Pantoprazole Inj 40 Mg Vial IVP 05/18/24 08:59 40 mg QDAY GUS Administration Plan 48-year-old male with past medical history of hypertension and meth use was admitted to the hospital on 04/17/2024 due to acute encephalopathy. #Acute CVA #Acute encephalopathy-resolved Multifactorial: Infection, hypertensive emergency, has hx of methamphetamine use, denies any alcohol use current, utox positive for THC. Poor compliance with antihypertensive medication. Blood pressure 205/106 on presentation. Given labetalol in ED. CT findings of suspicious acute infarct left parietal white matter. Neurology consulted--recommended LP and MRI. LP negative for infection, elevated protein (86). MRI head showed small acute infarcts of right and left temporal lobe. Prominent chronic microvascular white matter changes. 50-70% stenosis of right ICA, 70% stenosis at origin of the right MCA. TTE echo with bubble study--negative Plan: -Continue Plavix 75 mg daily -aspirin 81 mg daily -atovastatin 80mg daily -MAREK with bubble study is pending -Head of bed elevated, keep patient euthermic and euglycemic -Considering Holter monitor if MAREK is negative #Hx poorly controlled hypertension #Medication noncompliance -Amlodipine 10 mg daily ? Lisinopril 30 mg -Patient was instructed extensively on importance of compliance due to higher risk of stroke associated with his blood pressure. #Electrolyte imbalance -replete as needed #Nicotine dependence #THC dependence #History of methamphetamine use Patient denies meth use currently, reports smoking every day, reports marijuana use -Nicotine patch as needed #Hypertension emergency-resolved Disposition: Pending echo read and possible MAREK Diet: NPO GI prophylaxis: protonix DVT prophylaxis: heparin sc Code: Full The patient's management plan was discussed with my attending physician Dr. Ronquillo and senior Dr. Payan. Karen Winston, PGY-1
--- NOTE | 2024-04-23 14:00 | ESPR_ITS ---
Documentation for date of: 04/23/24 Subjective Subjective Interval history: Patient seen and examined in telemetry. Mother at bedside. Patient's mentation is on baseline. Able to follow verbal commands. No changes since yesteraday. Exam Vital Signs Temp Pulse Resp BP Pulse Ox O2 Del Method 97.8 F 73 16 136/89 H 95 Room Air 04/23/24 12:00 04/23/24 12:00 04/23/24 12:00 04/23/24 12:00 04/23/24 12:00 04/23/24 12:00 Narrative Exam Constitutional: AOx3, able to speak full sentences HEENT: NC/AT, PERRLA, oral mucosa moist, neck supple CVS: RRR, S1-S2 present, no murmurs RESP: CTAB GI: non distended, non tender to palpation, NBS MSK: full ROM, no peripheral edema, peripheral pulses present Skin: warm and dry, no rashes NEURO:? ? MENTAL STATUS:?AAOx3 ? LANG/SPEECH: slow Fluent, intact naming, repetition & comprehension ? CRANIAL NERVES: ? II: Pupils equal and reactive, no RAPD,?normal visual field and fundus ? III, IV, : EOM intact, no gaze preference or deviation ? V: normal ? VII: no facial asymmetry ? VIII: normal hearing to speech ? MOTOR: 4/5 in both upper and lower extremities ? REFLEXES: 2/4 throughout,?bilateral flexor plantars ? SENSORY: Normal to touch, temperature & pin prick in all extremiteis ? COORD: Normal finger to nose and heel to coombs, no tremor, no dysmetria, gait is narrow and slow Objective Labs 04/23/24 04:44 04/23/24 04:44 Labs: Laboratory Results - last 24 hr 04/23/24 04:44 WBC 10.8 H RBC 4.91 Hgb 13.9 Hct 41.7 MCV 85 MCH 28.3 MCHC 33.3 RDW Std Deviation 39.3 Plt Count 268 Neut % (Auto) 60 Lymph % (Auto) 26 [place] % (Auto) 9 Eos % (Auto) 5 Baso % (Auto) 0 Neut # (Auto) 6.5 Lymph # (Auto) 2.8 [place] # (Auto) 1.0 H Eos # (Auto) 0.5 Baso # (Auto) 0.0 Immature Gran # (Auto) 0.04 H Absolute Nucleated RBC 0.00 Immature Gran % 0 Nucleated RBC % 0 Sodium 138 Potassium 4.1 Chloride 107 Carbon Dioxide 25.2 Anion Gap 6 L BUN 22 Creatinine 1.4 H Estim Creat Clear Calc 83.7 eGFR > 60 BUN/Creatinine Ratio 16 Glucose 102 Calculated Osmolality 278 Calcium 9.2 Corrected Calcium 9.2 Total Bilirubin 0.5 AST 22 ALT 22 Alkaline Phosphatase 110 Total Protein 6.8 Albumin 4.0 Globulin 2.8 Albumin/Globulin Ratio 1.4 ABG Interpretation ABG results: 04/17/24 15:26 ABG pH 7.43 ABG pCO2 44 ABG pO2 65 L ABG HCO3 29 H ABG O2 Saturation 94 ABG Base Excess 4 H Quality Measures Quality Measures none Assessment & Plan Assessment Current Active Medications: Generic Name Dose Route Start Last Admin Trade Name Freq PRN Reason Stop Dose Admin Acetaminophen 650 mg 04/17/24 21:19 Acetaminophen 325 Mg Tablet PO 05/17/24 21:18 Q6HR PRN Mild Pain (1-3) & Fever >101 Amlodipine Besylate 10 mg 04/19/24 21:00 04/22/24 20:03 Amlodipine Besylate 5 Mg Tablet PO 05/19/24 20:59 10 mg HS GUS Administration Aspirin 81 mg 04/18/24 09:00 04/23/24 08:53 Aspirin Ec 81 Mg Tabec PO 05/18/24 08:59 81 mg QDAY GUS Administration Atorvastatin Calcium 80 mg 04/18/24 10:45 04/23/24 08:53 Atorvastatin Calcium 20 Mg Tablet PO 05/18/24 10:44 80 mg DAILY GUS Administration Clopidogrel Bisulfate 75 mg 04/20/24 09:00 04/23/24 08:53 Clopidogrel Bisulfate 75 Mg Tablet PO 05/20/24 08:59 75 mg QDAY GUS Administration Heparin Sodium (Porcine) 5,000 unit 04/18/24 09:00 04/23/24 08:52 Heparin Sod Inj 5000 Unit/Ml Vial SC 05/02/24 08:59 5,000 unit Q12H GUS Administration Lisinopril 20 mg/ Lisinopril 30 mg 04/20/24 09:00 04/23/24 08:53 10 mg PO 05/20/24 08:59 30 mg QDAY GUS Administration Nicotine 21 mg 04/18/24 14:00 04/23/24 08:53 Nicotine Patch 21 Mg/24 Hr Patch.Td24 TOP 05/18/24 13:59 21 mg QDAY GUS Administration Ondansetron HCl 4 mg 04/17/24 19:39 Ondansetron Inj 2 Mg/Ml Inj 2 Ml IV 05/17/24 19:38 Q6H PRN NAUSEA OR VOMITING Protocol Pantoprazole Sodium 40 mg 04/18/24 09:00 04/23/24 08:52 Pantoprazole Inj 40 Mg Vial IVP 05/18/24 08:59 40 mg QDAY GUS Administration Plan (1) Acute CVA (cerebrovascular accident): Assessment: Based on the MRI brain with small acute infarct in the right parietal area. Increased signal changes in FLAIR sequence is suspicious for multiple sclerosis, sent the CSF for MS panel. MRA findings with intracranial stenosis. This could have been related to longstanding uncontrolled hypertension and drug usage. TTE showed EF 55% with negative bubble study Recommendations: Continue Plavix along with aspirin with statin for prophylaxis. F/u MS panel Can be DC from neuro standpoint F/u outpatient Neurology with Dr Puckett 2 week after discharge - Patient's care was discussed with my attending physician, Dr. Lavern Grijalva MD Internal Medicine PGY-3 Attending Provider Attestation/Addendum I personally have seen and examined the patient at the bedside and I agree with resident's findings, assessment and plan of care. Follow-up with transesophageal echocardiogram as cardiology has been consulted. So far the etiological workup is negative for acute stroke. CSF analysis is pending for MS panel. Patient is neurologically stable.
--- NOTE | 2024-04-23 14:48 | PC.SS ---
SS follow up note; SS was contacted by leonel from PT and she informed SS that patient was needing SNF or acute rehab. SS met with patient at bedside to discuss discharge plan and inform him that PT was recommending SNF. SS sent SNF inquiry through [employer]. SS will need to present SNF choices to patients. PASSR needs to be completed.
[2024-04-23] MEDS: amLODIPine BESYLATE 5 MG TABLET 10 MG PO (20:13)
[2024-04-24] VITALS (25 sets, daily range): BP systolic 114–152; BP diastolic 67–100; PULSE 61–616; RESP 12–29; TEMP 35.9–36.7; O2SAT 95–100
[2024-04-24 06:08] LABS: Basophils % (Auto) 0 % (0-2.5); Eosinophils # (Auto) 0.5 Thou/mm3 (0.0-0.5); Eosinophils % (Auto) 5 % (0-10); Hematocrit 43.9 % (41.0-53.0); Hemoglobin 14.6 g/dL (13.5-16.0); Immature Granulocytes % (Auto) 0 % (0-0); Immature Granulocytes Auto 0.02 Thou/mm3 (0.00-0.00); Lymphocytes # (Auto) 2.5 Thou/mm3 (1.0-4.8); Lymphocytes % (Auto) 25 % (10-50); Mean Corpuscular HGB Conc 33.3 g/dl (31.0-37.0); Mean Corpuscular Hemoglobin 28.2 pg (25.0-35.0); Mean Corpuscular Volume 85 fL (80-100); Monocytes # (Auto) 0.8 Thou/mm3 (0.0-0.8); Monocytes % (Auto) 9 % (0-12); Neutrophils % (Auto) 61 % (37-80); Nucleated Red Blood Cell % 0 /100 WBC (0); Platelet Count 318 Thou/mm3 (140-440); Red Blood Count 5.17 Miln/mm3 (4.50-5.90); White Blood Count 9.9 Thou/mm3 (3.8-10.6)
[2024-04-24 06:33] LABS: Alanine Aminotransferase 44 U/L (10-49); Albumin, Serum 4.2 gm/dL (3.5-5.0); Albumin/Globulin Ratio 1.4 (1.2-2.2); Alkaline Phosphatase 115 U/L (46-116); Anion Gap 7 (7-16); Aspartate Amino Transferase 47 U/L (0-34); BUN/Creatinine Ratio 18 Ratio (12-20); Bilirubin,Total 0.4 mg/dL (0.3-1.2); Blood Urea Nitrogen 24 mg/dL (9-23); Calcium 9.7 mg/dL (8.3-10.6); Calcium (Corrected) 9.7 mg/dL (8.5-10.1); Carbon Dioxide 26.7 mMol/L (20.0-31.0); Chloride 106 mMol/L (98-107); Creatinine (Component) 1.3 mg/dL (0.6-1.3); Glucose 93 mg/dL (74-106); Osmolality,Calculated 283 (275-295); Potassium 4.4 mMol/L (3.4-5.1); Sodium 140 mMol/L (136-145); Total Protein 7.2 gm/dL (5.7-8.2); eGFR > 60 See Note
[2024-04-24] MEDS: PANTOPRAZOLE INJ 40 MG VIAL IVP (08:56)
[2024-04-24] MEDS: HEPARIN SOD INJ 5000 UNIT/ML VIAL SC ×2 (08:56→20:41)
[2024-04-24] MEDS: NICOTINE PATCH 21 MG/24 HR PATCH.TD24 TOP (08:57)
[2024-04-24] MEDS: CLOPIDOGREL BISULFATE 75 MG TABLET PO (08:57)
[2024-04-24] MEDS: ATORVASTATIN CALCIUM 20 MG TABLET 80 MG PO (08:57)
[2024-04-24] MEDS: ASPIRIN EC 81 MG TABEC PO (08:58)
--- NOTE | 2024-04-24 09:27 | PD.RESPRO ---
Documentation for date of: 04/24/24 Subjective Subjective Interval history: No acute overnight events reported. Patient seen and examined at bedside this morning patient endorses to feeling great. Patient denies any cardiac symptoms including shortness of breath, chest pain, pressure, palpitation or dizziness. Telemetry is reviewed patient is in normal sinus rhythm. Vitals are stable with blood pressure of 118/75 and heart rate of 81. Patient underwent MAREK and findings were negative. CBC and CMP is unremarkable. Patient has no other complaints. Exam Vital Signs Temp Pulse Resp BP Pulse Ox O2 Del Method 97.9 F 81 23 H 118/75 98 Room Air 04/24/24 07:45 04/24/24 08:57 04/24/24 07:45 04/24/24 08:57 04/24/24 07:45 04/24/24 07:45 Narrative Exam GENERAL: A&Ox3 . Awake, Not in acute distress NEURO: no focal neurological deficits HEENT: Atraumatic, Normocephalic. mucous membranes moist. Eyes open, symmetrical, & clear, Poor dental hygeine with missing teeth HEART: Normal Heart Sounds LUNGS: Clear to auscultation with no wheezing or crackles. ABDOMEN: soft, non-distended, non-tender, bowel sounds heard, no guarding or rebound tenderness SKIN: No Rash or ecchymoses, multiple tattoos EXTREMITIES: No edema, tenderness, able to move all 4 extremities, pedal pulses palpated Objective Labs 04/24/24 05:14 04/24/24 05:14 Labs: Laboratory Results - last 24 hr 04/24/24 05:14 WBC 9.9 RBC 5.17 Hgb 14.6 Hct 43.9 MCV 85 MCH 28.2 MCHC 33.3 RDW Std Deviation 40.0 Plt Count 318 D Neut % (Auto) 61 Lymph % (Auto) 25 [place] % (Auto) 9 Eos % (Auto) 5 Baso % (Auto) 0 Neut # (Auto) 6.0 Lymph # (Auto) 2.5 [place] # (Auto) 0.8 Eos # (Auto) 0.5 Baso # (Auto) 0.0 Immature Gran # (Auto) 0.02 H Absolute Nucleated RBC 0.00 Immature Gran % 0 Nucleated RBC % 0 Sodium 140 Potassium 4.4 Chloride 106 Carbon Dioxide 26.7 Anion Gap 7 BUN 24 H Creatinine 1.3 Estim Creat Clear Calc 88.0 eGFR > 60 BUN/Creatinine Ratio 18 Glucose 93 Calculated Osmolality 283 Calcium 9.7 Corrected Calcium 9.7 Total Bilirubin 0.4 AST 47 H ALT 44 Alkaline Phosphatase 115 Total Protein 7.2 Albumin 4.2 Globulin 3.0 Albumin/Globulin Ratio 1.4 ABG Interpretation ABG results: 04/17/24 15:26 ABG pH 7.43 ABG pCO2 44 ABG pO2 65 L ABG HCO3 29 H ABG O2 Saturation 94 ABG Base Excess 4 H Quality Measures Quality Measures none Assessment & Plan Assessment Current Active Medications: Generic Name Dose Route Start Last Admin Trade Name Freq PRN Reason Stop Dose Admin Acetaminophen 650 mg 04/17/24 21:19 Acetaminophen 325 Mg Tablet PO 05/17/24 21:18 Q6HR PRN Mild Pain (1-3) & Fever >101 Amlodipine Besylate 10 mg 04/19/24 21:00 04/23/24 20:13 Amlodipine Besylate 5 Mg Tablet PO 05/19/24 20:59 10 mg HS GUS Administration Aspirin 81 mg 04/18/24 09:00 04/24/24 08:58 Aspirin Ec 81 Mg Tabec PO 05/18/24 08:59 81 mg QDAY GUS Administration Atorvastatin Calcium 80 mg 04/18/24 10:45 04/24/24 08:57 Atorvastatin Calcium 20 Mg Tablet PO 05/18/24 10:44 80 mg DAILY GUS Administration Clopidogrel Bisulfate 75 mg 04/20/24 09:00 04/24/24 08:57 Clopidogrel Bisulfate 75 Mg Tablet PO 05/20/24 08:59 75 mg QDAY GUS Administration Heparin Sodium (Porcine) 5,000 unit 04/18/24 09:00 04/24/24 08:56 Heparin Sod Inj 5000 Unit/Ml Vial SC 05/02/24 08:59 5,000 unit Q12H GUS Administration Lisinopril 20 mg/ Lisinopril 30 mg 04/20/24 09:00 04/24/24 08:57 10 mg PO 05/20/24 08:59 30 mg QDAY GUS Administration Nicotine 21 mg 04/18/24 14:00 04/24/24 08:57 Nicotine Patch 21 Mg/24 Hr Patch.Td24 TOP 05/18/24 13:59 21 mg QDAY GUS Administration Ondansetron HCl 4 mg 04/17/24 19:39 Ondansetron Inj 2 Mg/Ml Inj 2 Ml IV 05/17/24 19:38 Q6H PRN NAUSEA OR VOMITING Protocol Pantoprazole Sodium 40 mg 04/18/24 09:00 04/24/24 08:56 Pantoprazole Inj 40 Mg Vial IVP 05/18/24 08:59 40 mg QDAY GUS Administration Plan Plan Mr. Cheek is a 48-year-old male with past medical history significant for hypertension, admits to noncompliance with medications presented to the ED after a ground-level fall at the [facility]. #Suspected valvular vegetations or abnormalities -Pt has history of poly substance use and history of embolic stroke -In the setting of acute encephalopathy and CT scan evident of Old appearing infarcts basal ganglia and left occipital lobe -TTE with bubble study was negative -MAREK done to rule out any vegetation or valvular abnormalities Appropriate indication for the MAREK Patient denies any kind of swallowing problems or any kind of esophageal interventions or previous surgeries. Patient denies any kind of gastric ulcers bleeding and any other hematemesis or hematochezia. Patient denies any issues with anesthesia previously. Patient explained all the risks, benefits and alternatives of MAREK including the risk of perforation, bleeding, respiratory failure secondary to sedation, injury to teeth gums esophagus and stomach. Patient understands all risks and benefits and provided consent for the procedure.Appropriate indication for the MAREK -Official MAREK read pending #Acute encephalopathy- resolved #Acute CVA rule out -Pt presented on 04/17 with acute encephalopathy with has since resolved -Pt currently has residual weakness on the upper and lower extremity -CT findings of suspicious acute infarct left parietal white matter and evident of Old appearing infarcts basal ganglia and left occipital lobe -MRI with MRA: Small acute infarcts right and left temporal lobe as above, Prominent chronic microvascular white matter change, Suspicious for 50-70% stenosis origin right internal carotid artery, recommend carotid Doppler sonography follow-up, 70% stenosis origin of a right middle cerebral artery trifurcation branch -Pt is started on plavix, aspirin and statin -Neurology is following #Primary Hypertension -Pt has hx of HTN but admits to non compliance with his medication. BP was uncontrolled on admission BP 205/106 -Pt bp is currently well controlled with lisinopril and amlodipine #Acute kidney injury - improved -Baseline Cr 1.1 during this admission and creatinine peaked 1.4 -Likely secondary to prerenal azotemia -monitor Daily BMP -Avoid nephrotoxins, renally dose medications -Pt is tolerating oral diet, encouraged to increase oral intake #Polysubstance use disorder -Pt has history of tabacco use, daily marijuana use and meth use -Nicotine patch ordered -referral to social work assistant Assessment and plan discussed with my attending physician Dr. Anai Tobin (PGY-1)- Internal medicine resident Attending Provider Attestation/Addendum I have personally seen and examined the patient separately on the above date of service and discussed the plan of care with the resident. I reviewed the resident Dr. Gokul Tobin consultation progress note and agree with the resident findings and plan in the note above and have also edited the documentation to reflect my findings and plan. Rupesh Ospina M.D. Interventional Cardiology
--- NOTE | 2024-04-24 09:35 | PC.SS ---
SS met with pt at bedside, pt was accompanied by his mother Lois. SS went over placement options: [facility], [facility], [facility] and [facility] are considering. [facility] accepted but do not have male beds availability until 04/30. Per pt mother Lois, she does not want the pt out of town as she does not travel long distances due to age. They are between [facility] and [facility], pending responses.
--- NOTE | 2024-04-24 09:55 | PC.SS ---
SS spoke to Shira at [facility], she accepted pt on NAOMI. SS sent over updated PT notes and PASSR for Auth. Per Shira most likely will get auth by tomorrow.
--- NOTE | 2024-04-24 10:27 | PC.SS ---
Rounding: Plan for MAREK today at 1134
[2024-04-24 10:49] LABS: Prothrombin Time 11.2 Seconds (9.0-12.2)
--- NOTE | 2024-04-24 11:03 | PC.SS ---
SS met with pt and mother Lois at bedside to provide update on authorization, SS informed them per Shiar auth should be obtained by tomorrow.
[2024-04-24] MEDS: BENZOCAINE 20% (Hurricaine) SPRAY 1 DOSE TOP (12:21)
[2024-04-24] MEDS: MIDAZOLAM INJ 1 MG/ML VIAL 2 ML 4 MG IV (12:21)
[2024-04-24] MEDS: fentaNYL CIT INJ 50 mCg/ML AMP 2ML 100 MCG IVP (12:21)
--- NOTE | 2024-04-24 13:55 | ESPR_ITS ---
<Statement entered by Franklin Ronquillo MD - 04/27/24 07:49> I reviewed above note and agree with findings and plans. I have also personally examined the patient with medicine team and went over assessment and plan with medical team including help desk internship and resident physician. <Statement entered by Coral Payan MD - 04/24/24 14:08> I discussed with and supervised my co-resident involved in the care of this patient. I agree with the assessment and plan as documented above. No acute events overnight. Plan for MAREK today. If negative, anticipate discharge within 24-48 hours to SNF. Coral Payan MD PGY-3 Documentation for date of: 04/24/24 Subjective Subjective Interval history: Patient examined at bedside. Vitals are stable. Labs unremarkable. No major complaints. MAREK is pending. On aspirin, plavix, statin for stroke. Continue physical therapy. Exam Vital Signs Temp Pulse Resp BP Pulse Ox O2 Del Method O2 Flow Rate 97.8 F 616 H 18 119/73 96 Room Air 4 04/24/24 13:45 04/24/24 13:45 04/24/24 13:45 04/24/24 13:45 04/24/24 13:45 04/24/24 13:45 04/24/24 13:30 Narrative Exam General: Awake and in no acute distress, unkempt. HEENT: Normocephalic, atraumatic, mucous membranes moist, missing teeth. Heart: Regular rate and rhythm, no murmurs. Lungs: Clear to auscultation with no wheezing or crackles. Abdomen: Soft, nondistended, nontender, positive bowel sounds. ?No guarding or rebound tenderness. Neurologic: orientation improved, no new neurological deficit, and patient able to move all 4 extremities. Extremities: No edema. Skin: No rash or ecchymoses, tattos all over Objective Labs 04/24/24 05:14 04/24/24 05:14 Labs: Laboratory Results - last 24 hr 04/24/24 05:14 WBC 9.9 RBC 5.17 Hgb 14.6 Hct 43.9 MCV 85 MCH 28.2 MCHC 33.3 RDW Std Deviation 40.0 Plt Count 318 D Neut % (Auto) 61 Lymph % (Auto) 25 [place] % (Auto) 9 Eos % (Auto) 5 Baso % (Auto) 0 Neut # (Auto) 6.0 Lymph # (Auto) 2.5 [place] # (Auto) 0.8 Eos # (Auto) 0.5 Baso # (Auto) 0.0 Immature Gran # (Auto) 0.02 H Absolute Nucleated RBC 0.00 Immature Gran % 0 Nucleated RBC % 0 PT 11.2 INR 1.0 Sodium 140 Potassium 4.4 Chloride 106 Carbon Dioxide 26.7 Anion Gap 7 BUN 24 H Creatinine 1.3 Estim Creat Clear Calc 88.0 eGFR > 60 BUN/Creatinine Ratio 18 Glucose 93 Calculated Osmolality 283 Calcium 9.7 Corrected Calcium 9.7 Total Bilirubin 0.4 AST 47 H ALT 44 Alkaline Phosphatase 115 Total Protein 7.2 Albumin 4.2 Globulin 3.0 Albumin/Globulin Ratio 1.4 ABG Interpretation ABG results: 04/17/24 15:26 ABG pH 7.43 ABG pCO2 44 ABG pO2 65 L ABG HCO3 29 H ABG O2 Saturation 94 ABG Base Excess 4 H Quality Measures Quality Measures none Assessment & Plan Assessment Current Active Medications: Generic Name Dose Route Start Last Admin Trade Name Freq PRN Reason Stop Dose Admin Acetaminophen 650 mg 04/17/24 21:19 Acetaminophen 325 Mg Tablet PO 05/17/24 21:18 Q6HR PRN Mild Pain (1-3) & Fever >101 Amlodipine Besylate 10 mg 04/19/24 21:00 04/23/24 20:13 Amlodipine Besylate 5 Mg Tablet PO 05/19/24 20:59 10 mg HS GUS Administration Aspirin 81 mg 04/18/24 09:00 04/24/24 08:58 Aspirin Ec 81 Mg Tabec PO 05/18/24 08:59 81 mg QDAY GUS Administration Atorvastatin Calcium 80 mg 04/18/24 10:45 04/24/24 08:57 Atorvastatin Calcium 20 Mg Tablet PO 05/18/24 10:44 80 mg DAILY GUS Administration Clopidogrel Bisulfate 75 mg 04/20/24 09:00 04/24/24 08:57 Clopidogrel Bisulfate 75 Mg Tablet PO 05/20/24 08:59 75 mg QDAY GUS Administration Heparin Sodium (Porcine) 5,000 unit 04/18/24 09:00 04/24/24 08:56 Heparin Sod Inj 5000 Unit/Ml Vial SC 05/02/24 08:59 5,000 unit Q12H GUS Administration Lisinopril 20 mg/ Lisinopril 30 mg 04/20/24 09:00 04/24/24 08:57 10 mg PO 05/20/24 08:59 30 mg QDAY GUS Administration Nicotine 21 mg 04/18/24 14:00 04/24/24 08:57 Nicotine Patch 21 Mg/24 Hr Patch.Td24 TOP 05/18/24 13:59 21 mg QDAY GUS Administration Ondansetron HCl 4 mg 04/17/24 19:39 Ondansetron Inj 2 Mg/Ml Inj 2 Ml IV 05/17/24 19:38 Q6H PRN NAUSEA OR VOMITING Protocol Pantoprazole Sodium 40 mg 04/18/24 09:00 04/24/24 08:56 Pantoprazole Inj 40 Mg Vial IVP 05/18/24 08:59 40 mg QDAY GUS Administration Plan 48-year-old male with past medical history of hypertension and meth use was admitted to the hospital on 04/17/2024 due to acute encephalopathy. #Acute CVA #Acute encephalopathy-resolved Multifactorial: Infection, hypertensive emergency, has hx of methamphetamine use, denies any alcohol use current, utox positive for THC. Poor compliance with antihypertensive medication. Blood pressure 205/106 on presentation. Given labetalol in ED. CT findings of suspicious acute infarct left parietal white matter. Neurology consulted--recommended LP and MRI. LP negative for infection, elevated protein (86). MRI head showed small acute infarcts of right and left temporal lobe. Prominent chronic microvascular white matter changes. 50-70% stenosis of right ICA, 70% stenosis at origin of the right MCA. TTE echo with bubble study--negative Plan: -Continue Plavix 75 mg daily -aspirin 81 mg daily -atovastatin 80mg daily -MAREK with bubble study is pending -Head of bed elevated, keep patient euthermic and euglycemic -Considering Holter monitor if MAREK is negative #Hx poorly controlled hypertension #Medication noncompliance -Amlodipine 10 mg daily ? Lisinopril 30 mg -Patient was instructed extensively on importance of compliance due to higher risk of stroke associated with his blood pressure. #Electrolyte imbalance -replete as needed #Nicotine dependence #THC dependence #History of methamphetamine use Patient denies meth use currently, reports smoking every day, reports marijuana use -Nicotine patch as needed #Hypertension emergency-resolved Disposition: tele, pending MAREK and SNF auth Diet: NPO, CHO after MAREK GI prophylaxis: protonix DVT prophylaxis: heparin sc Code: Full The patient's management plan was discussed with my attending physician Dr. Ronquillo and senior Dr. Payan. Karen Winston, PGY-1
--- NOTE | 2024-04-24 16:09 | ESPR_ITS ---
Documentation for date of: 04/24/24 Subjective Subjective Interval history: Patient seen and examined in telemetry. Mother at bedside. Patient's mentation is on baseline. Able to follow verbal commands. No changes since yesteraday. MAREK pending Exam Vital Signs Temp Pulse Resp BP Pulse Ox O2 Del Method O2 Flow Rate 97.7 F 75 17 116/78 98 Room Air 4 04/24/24 14:00 04/24/24 14:00 04/24/24 14:00 04/24/24 14:00 04/24/24 14:00 04/24/24 14:00 04/24/24 13:30 Narrative Exam Constitutional: AOx3, able to speak full sentences HEENT: NC/AT, PERRLA, oral mucosa moist, neck supple CVS: RRR, S1-S2 present, no murmurs RESP: CTAB GI: non distended, non tender to palpation, NBS MSK: full ROM, no peripheral edema, peripheral pulses present Skin: warm and dry, no rashes NEURO:? ? MENTAL STATUS:?AAOx3 ? LANG/SPEECH: slow Fluent, intact naming, repetition & comprehension ? CRANIAL NERVES: ? II: Pupils equal and reactive, no RAPD,?normal visual field and fundus ? III, IV, : EOM intact, no gaze preference or deviation ? V: normal ? VII: no facial asymmetry ? VIII: normal hearing to speech ? MOTOR: 4/5 in both upper and lower extremities ? REFLEXES: 2/4 throughout,?bilateral flexor plantars ? SENSORY: Normal to touch, temperature & pin prick in all extremiteis ? COORD: Normal finger to nose and heel to coombs, no tremor, no dysmetria, gait is narrow and slow Objective Labs 04/24/24 05:14 04/24/24 05:14 Labs: Laboratory Results - last 24 hr 04/24/24 05:14 WBC 9.9 RBC 5.17 Hgb 14.6 Hct 43.9 MCV 85 MCH 28.2 MCHC 33.3 RDW Std Deviation 40.0 Plt Count 318 D Neut % (Auto) 61 Lymph % (Auto) 25 [place] % (Auto) 9 Eos % (Auto) 5 Baso % (Auto) 0 Neut # (Auto) 6.0 Lymph # (Auto) 2.5 [place] # (Auto) 0.8 Eos # (Auto) 0.5 Baso # (Auto) 0.0 Immature Gran # (Auto) 0.02 H Absolute Nucleated RBC 0.00 Immature Gran % 0 Nucleated RBC % 0 PT 11.2 INR 1.0 Sodium 140 Potassium 4.4 Chloride 106 Carbon Dioxide 26.7 Anion Gap 7 BUN 24 H Creatinine 1.3 Estim Creat Clear Calc 88.0 eGFR > 60 BUN/Creatinine Ratio 18 Glucose 93 Calculated Osmolality 283 Calcium 9.7 Corrected Calcium 9.7 Total Bilirubin 0.4 AST 47 H ALT 44 Alkaline Phosphatase 115 Total Protein 7.2 Albumin 4.2 Globulin 3.0 Albumin/Globulin Ratio 1.4 ABG Interpretation ABG results: 04/17/24 15:26 ABG pH 7.43 ABG pCO2 44 ABG pO2 65 L ABG HCO3 29 H ABG O2 Saturation 94 ABG Base Excess 4 H Quality Measures Quality Measures none Assessment & Plan Assessment Current Active Medications: Generic Name Dose Route Start Last Admin Trade Name Freq PRN Reason Stop Dose Admin Acetaminophen 650 mg 04/17/24 21:19 Acetaminophen 325 Mg Tablet PO 05/17/24 21:18 Q6HR PRN Mild Pain (1-3) & Fever >101 Amlodipine Besylate 10 mg 04/19/24 21:00 04/23/24 20:13 Amlodipine Besylate 5 Mg Tablet PO 05/19/24 20:59 10 mg HS GUS Administration Aspirin 81 mg 04/18/24 09:00 04/24/24 08:58 Aspirin Ec 81 Mg Tabec PO 05/18/24 08:59 81 mg QDAY GUS Administration Atorvastatin Calcium 80 mg 04/18/24 10:45 04/24/24 08:57 Atorvastatin Calcium 20 Mg Tablet PO 05/18/24 10:44 80 mg DAILY GUS Administration Clopidogrel Bisulfate 75 mg 04/20/24 09:00 04/24/24 08:57 Clopidogrel Bisulfate 75 Mg Tablet PO 05/20/24 08:59 75 mg QDAY GUS Administration Heparin Sodium (Porcine) 5,000 unit 04/18/24 09:00 04/24/24 08:56 Heparin Sod Inj 5000 Unit/Ml Vial SC 05/02/24 08:59 5,000 unit Q12H GUS Administration Lisinopril 20 mg/ Lisinopril 30 mg 04/20/24 09:00 04/24/24 08:57 10 mg PO 05/20/24 08:59 30 mg QDAY GUS Administration Nicotine 21 mg 04/18/24 14:00 04/24/24 08:57 Nicotine Patch 21 Mg/24 Hr Patch.Td24 TOP 05/18/24 13:59 21 mg QDAY GUS Administration Ondansetron HCl 4 mg 04/17/24 19:39 Ondansetron Inj 2 Mg/Ml Inj 2 Ml IV 05/17/24 19:38 Q6H PRN NAUSEA OR VOMITING Protocol Pantoprazole Sodium 40 mg 04/18/24 09:00 04/24/24 08:56 Pantoprazole Inj 40 Mg Vial IVP 05/18/24 08:59 40 mg QDAY GUS Administration Plan (1) Acute CVA (cerebrovascular accident): Assessment: Based on the MRI brain with small acute infarct in the right parietal area. Increased signal changes in FLAIR sequence is suspicious for multiple sclerosis, sent the CSF for MS panel. MRA findings with intracranial stenosis. This could have been related to longstanding uncontrolled hypertension and drug usage. TTE showed EF 55% with negative bubble study Recommendations: Continue Plavix along with aspirin with statin for prophylaxis. F/u MS panel Pending MAREK report F/u outpatient Neurology with Dr Puckett 2 week after discharge - Patient's care was discussed with my attending physician, Dr. Lavern Grijalva MD Internal Medicine PGY-3 Attending Provider Attestation/Addendum I have seen and examined the patient at the bedside and agree with resident's findings, assessment and plan of care. EEG transesophageal echocardiogram: Resulted negative. Will continue with aspirin Plavix and statin follow-up with MS panel as it becomes available. Noted that he is going to be transferred to the rehab tomorrow.
--- NOTE | 2024-04-24 19:28 | ECHO_ITS ---
Transesophageal Echo Report Ht (in): 72 Wt (lb): 226 Exam Location: Echo Lab Status: Inpatient Supervisor Locomotive: SHALOM Causey^^^^ Indications: Procedure Performed: BP: 134 / 75 HR: 78 Rhythm: Sinus Technical Quality: Good FINDINGS Left Ventricle Normal left ventricular size, wall thickness, systolic function with no obvious regional wall motion abnormalities. Normal left ventricular diastolic filling pattern for age. The ejection fraction is visually estimated at 60-65 %. Right Ventricle The right ventricle is normal in size and systolic function. pressure, __ mmHg. Left Atrium The left atrium is normal by two-dimensional, color flow and Doppler imaging with no structural abnormalities, no thrombus formation present. Right Atrium The right atrium is normal by two-dimensional imaging, color flow and Doppler imaging with no structural abnormalities, no thrombus formation present. Atrial Appendages The left atrial appendage appears normal with no evidence for thrombus. Atrial Septum The interatrial septum is normal to color flow Doppler and agitated saline imaging. Aorta The aorta is normal by two-dimensional, color flow and Doppler interrogation. Mitral Valve Trace to mild mitral regurgitation. Aortic Valve The aortic valve is trileaflet and normal by two-dimensional, color flow and Doppler interrogation. There is no significant aortic valve regurgitation. Tricuspid Valve There is mild tricuspid valve regurgitation. Pulmonic Valve The pulmonic valve is normal by two-dimensional, color flow and Doppler interrogation. There is no significant pulmonic valve regurgitation. Vessels The pulmonary artery appears normal. The inferior vena cava pulmonary and hepatic veins appear normal. Pericardium The pericardium is normal by two-dimensional imaging. There is no significant pericardial effusion. CONCLUSIONS Indication: Stroke Bubble study negative for any PFO or ASD. No LA or ROYAL thrombus. Normal LV size and function. Estimated LVEF is 55 to 60% Normal RV size and function. Mild TR, trace to mild MR. No pericardial effusion Rupesh Ospina (Electronically Signed) Final Date: 25 April 2024 04:18
[2024-04-24] MEDS: amLODIPine BESYLATE 5 MG TABLET 10 MG PO (20:40)
[2024-04-25] VITALS (9 sets, daily range): BP systolic 106–137; BP diastolic 61–104; PULSE 65–86; RESP 12–23; TEMP 36.2–36.6; O2SAT 92–99; BMI 30.4
--- NOTE | 2024-04-25 07:54 | ESDS_ITS ---
<Statement entered by Franklin Ronquillo MD - 04/27/24 07:52> I reviewed above note and agree with findings and plans. I have also personally examined the patient with medicine team and went over assessment and plan with medical team including international marketing manager and resident physician. Planned Discharge Date 04/24/24 DS: Providers Provider Date of admission: 04/17/24 19:39 Primary care physician: Physician No Primary/Family Admitting Provider: Da Monroe MD Attending Provider on Admission: Franklin Ronquillo MD Consults: 04/17/24 19:46 Consult to Neurology / Tele-Neurology Stat Comment: CVA Workup Consulting Provider: Petros Puckett 04/17/24 19:47 Referral Physical Therapy Routine Comment: Physician Instructions: Referral Speech Therapy Routine Comment: 04/17/24 22:07 Health Equity Referral - Nutrition Routine Comment: Positive screening for nutrition needs. [facility] Referral - Transportation Routine Comment: Positive screening for transportation needs. 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 On initial evaluation in ED patient reported he does not remember anything and was not able to provide much history. Patient was admitted for workup of CVA and neurologist Dr. Puckett was consulted. He was started on aspirin, plavix and statin. CT head showed acute left infarct in left pariet al white matter, negative for hemorrhage. MRI head showed small acute infarcts of right and left temporal lobe, prominent chronic microvascular white matter changes, 50-70% stenosis of right ICA, 70% stenosis at origin of the right MCA. An LP was done which showed increased protein. TTE and MAREK were done, which did not show any PFO or thrombus. He remained in sinus rhythm throughout his hospital stay. Patient is back to baseline mentation without any javon neurologic residual deficits. He was counselled extensively on medication compliance, the seriousness of his strokes, and methamphetamine cessation. Patient to be discharged to SNF with the following recommendations: - Take amlodipine and lisinopril for your high blood pressure - Take aspirin, atorvastatin, and plavix every day for your stroke. - Follow up with your primary care physician within 1 week of discharge. If you do not have a primary care physician, please follow up with the [facility] Residents clinic ([phone]) - Follow up with a heart doctor (debt management counselor), you may need a 24 hour holter to check for any arrhythmias causing your strokes - Follow up with a blood doctor (call center recruiter) for a hypercoaguable panel work up - Follow up with the brain doctor (neurologist) for your stroke I have reviewed and discussed the patient's care with my attending, Dr. Yg Payan MD PGY-3 #Acute embolic-pattern CVA #Acute encephalopathy, resolved #Hypertension #Medication noncompliance #Electrolyte imbalance #Polysubstance dependence disorder Status at Discharge Functional status at discharge: uses cane/walker Overall status at discharge: patient is progressing back to baseline Time Spent with Patient Time attestation: Total time spent providing and/or coordinating discharge services: 35 min Exam Vital Signs Temp Pulse Resp BP Pulse Ox O2 Del Method O2 Flow Rate 97.7 F 75 17 116/78 98 Room Air 4 04/24/24 14:00 04/24/24 14:00 04/24/24 14:00 04/24/24 14:00 04/24/24 14:00 04/24/24 14:00 04/24/24 13:30 Narrative Exam Constitutional: Restless, AAO x 3. HEENT: NCAT. Vision grossly intact. Poor dentition, some dysathritic speech at baseline. Respiratory: CTAB bilaterally. Cardiac: RRR. Abdomen: Soft, non-distended MSK: No B/L LE edema. Skin: Warm, dry, intact. Tattoos noted. Neuro: Motor and sensation grossly intact. Psychiatric: Appropriate mood and affect. Discharge Plan Plan Patient Disposition: Xfer Skilled Nsg Fac (SNF) Prescriptions/Referrals Prescriptions/Med Rec: New amlodipine 10 mg tablet 10 mg PO HS 30 Days Qty: 30 0RF aspirin [Ecotrin Low Strength] 81 mg Tablet,Delayed Release (Dr/Ec) 81 mg PO QDAY 30 Days Qty: 30 0RF atorvastatin 80 mg tablet 80 mg PO DAILY 30 Days Qty: 30 0RF clopidogrel 75 mg Tablet 75 mg PO QDAY 30 Days Qty: 30 0RF lisinopril 30 mg tablet 30 mg PO QDAY 30 Days Qty: 30 0RF Referrals: No Primary/Family,Physician [Primary Care Provider] - Patient/Caregiver Discharge Instructions Discharge Activity: as per physical therapy Print Language: Citizen Of [place] Stand Alone Forms: Cynthia Award Info., Patient Portal Info Letter Discharge Order Discharge Orders: Discharge (Routine); Ordered 04/25/24 Ordered By: Coral Payan Quality Discharge Quality Measures VTE prophylaxis
[2024-04-25] MEDS: HEPARIN SOD INJ 5000 UNIT/ML VIAL SC ×2 (08:28→21:49)
[2024-04-25] MEDS: PANTOPRAZOLE INJ 40 MG VIAL IVP (08:28)
[2024-04-25] MEDS: NICOTINE PATCH 21 MG/24 HR PATCH.TD24 TOP (08:30)
[2024-04-25] MEDS: ASPIRIN EC 81 MG TABEC PO (08:30)
[2024-04-25] MEDS: ATORVASTATIN CALCIUM 20 MG TABLET 80 MG PO (08:30)
[2024-04-25] MEDS: CLOPIDOGREL BISULFATE 75 MG TABLET PO (08:30)
--- NOTE | 2024-04-25 10:52 | PC.SS ---
SS spoke to Shira at [facility] in regards to pending auth, Per Shira they were out of office yesterday at conference so auth was submitted this morning. SS requested for Shira to keep SS updated on auth as pt is ready for DC.
[2024-04-25 11:19] LABS: Albumin, CSF 54.2 mg/dL (8.0-42.0); IgG, Serum 1260 mg/dL (600-1640)
--- NOTE | 2024-04-25 14:21 | PD.RESPRO ---
Documentation for date of: 04/25/24 Subjective Subjective Interval history: Patient seen and examined in telemetry. Mother at bedside. Patient's mentation is on baseline. Able to follow verbal commands. No changes since yesteraday. Will be discharged to SNF. Exam Vital Signs Temp Pulse Resp BP Pulse Ox O2 Del Method O2 Flow Rate 97.2 F 77 13 128/94 H 97 Room Air 4 04/25/24 08:00 04/25/24 12:00 04/25/24 08:00 04/25/24 08:29 04/25/24 08:00 04/25/24 08:00 04/24/24 13:30 Narrative Exam Constitutional: AOx3, able to speak full sentences HEENT: NC/AT, PERRLA, oral mucosa moist, neck supple CVS: RRR, S1-S2 present, no murmurs RESP: CTAB GI: non distended, non tender to palpation, NBS MSK: full ROM, no peripheral edema, peripheral pulses present Skin: warm and dry, no rashes NEURO:? ? MENTAL STATUS:?AAOx3 ? LANG/SPEECH: slow Fluent, intact naming, repetition & comprehension ? CRANIAL NERVES: ? II: Pupils equal and reactive, no RAPD,?normal visual field and fundus ? III, IV, : EOM intact, no gaze preference or deviation ? V: normal ? VII: no facial asymmetry ? VIII: normal hearing to speech ? MOTOR: 4/5 in both upper and lower extremities ? REFLEXES: 2/4 throughout,?bilateral flexor plantars ? SENSORY: Normal to touch, temperature & pin prick in all extremiteis ? COORD: Normal finger to nose and heel to coombs, no tremor, no dysmetria, gait is narrow and slow Objective Labs 04/24/24 05:14 04/24/24 05:14 ABG Interpretation ABG results: 04/17/24 15:26 ABG pH 7.43 ABG pCO2 44 ABG pO2 65 L ABG HCO3 29 H ABG O2 Saturation 94 ABG Base Excess 4 H Quality Measures Quality Measures VTE prophylaxis Assessment & Plan Assessment Current Active Medications: Generic Name Dose Route Start Last Admin Trade Name Freq PRN Reason Stop Dose Admin Acetaminophen 650 mg 04/17/24 21:19 Acetaminophen 325 Mg Tablet PO 05/17/24 21:18 Q6HR PRN Mild Pain (1-3) & Fever >101 Amlodipine Besylate 10 mg 04/19/24 21:00 04/24/24 20:40 Amlodipine Besylate 5 Mg Tablet PO 05/19/24 20:59 10 mg HS GUS Administration Aspirin 81 mg 04/18/24 09:00 04/25/24 08:30 Aspirin Ec 81 Mg Tabec PO 05/18/24 08:59 81 mg QDAY GUS Administration Atorvastatin Calcium 80 mg 04/18/24 10:45 04/25/24 08:30 Atorvastatin Calcium 20 Mg Tablet PO 05/18/24 10:44 80 mg DAILY GUS Administration Clopidogrel Bisulfate 75 mg 04/20/24 09:00 04/25/24 08:30 Clopidogrel Bisulfate 75 Mg Tablet PO 05/20/24 08:59 75 mg QDAY GUS Administration Heparin Sodium (Porcine) 5,000 unit 04/18/24 09:00 04/25/24 08:28 Heparin Sod Inj 5000 Unit/Ml Vial SC 05/02/24 08:59 5,000 unit Q12H GUS Administration Lisinopril 20 mg/ Lisinopril 30 mg 04/20/24 09:00 04/25/24 08:29 10 mg PO 05/20/24 08:59 30 mg QDAY GUS Administration Nicotine 21 mg 04/18/24 14:00 04/25/24 08:30 Nicotine Patch 21 Mg/24 Hr Patch.Td24 TOP 05/18/24 13:59 21 mg QDAY GUS Administration Ondansetron HCl 4 mg 04/17/24 19:39 Ondansetron Inj 2 Mg/Ml Inj 2 Ml IV 05/17/24 19:38 Q6H PRN NAUSEA OR VOMITING Protocol Pantoprazole Sodium 40 mg 04/18/24 09:00 04/25/24 08:28 Pantoprazole Inj 40 Mg Vial IVP 05/18/24 08:59 40 mg QDAY GUS Administration Plan (1) Acute CVA (cerebrovascular accident): Assessment: Based on the MRI brain with small acute infarct in the right parietal area. Increased signal changes in FLAIR sequence is suspicious for multiple sclerosis, sent the CSF for MS panel. MRA findings with intracranial stenosis. This could have been related to longstanding uncontrolled hypertension and drug usage. TTE showed EF 55% with negative bubble study Recommendations: Continue Plavix along with aspirin with statin for prophylaxis. F/u MS panel in the outpatient setting Pending MAREK report F/u outpatient Neurology with Dr Puckett 2 week after discharge Will be DC to SNF - Patient's care was discussed with my attending physician, Dr. Lavern Grijalva MD Internal Medicine PGY-3 Attending Provider Attestation/Addendum I personally have seen and examined the patient and I agree with the residents findings, assessment and plan of care. Will continue with the current management including aspirin Plavix and statin. Waiting for rehab placement.
--- NOTE | 2024-04-25 14:56 | PC.SS ---
SS reached out to Shira at [facility] in regards to auth, we are still pending approval.
--- NOTE | 2024-04-25 17:12 | ESPR_ITS ---
Documentation for date of: 04/25/24 Subjective Subjective Interval history: No overnight events. Patient seen and examined at bedside, resting constantly. Denies chest pain, orthopnea, shortness of breath. Denies any dysphagia, difficulty swallowing, throat pain, cough. Labs show WBC 9.9, hemoglobin 14.6, sodium 140, potassium 4.4, BUN 24, creatinine 1.3, EGFR greater than 60. Exam Vital Signs Temp Pulse Resp BP Pulse Ox O2 Del Method O2 Flow Rate 97.4 F 76 18 106/90 H 93 L Aerosol Mask 4 04/25/24 16:00 04/25/24 16:00 04/25/24 16:00 04/25/24 16:00 04/25/24 16:00 04/25/24 16:00 04/24/24 13:30 Narrative Exam GENERAL: A&Ox3 . Awake, Not in acute distress NEURO: no focal neurological deficits HEENT: Atraumatic, Normocephalic. mucous membranes moist. Eyes open, symmetrical, & clear, Poor dental hygeine with missing teeth HEART: Normal Heart Sounds LUNGS: Clear to auscultation with no wheezing or crackles. ABDOMEN: soft, non-distended, non-tender, bowel sounds heard, no guarding or rebound tenderness SKIN: No Rash or ecchymoses, multiple tattoos EXTREMITIES: No edema, tenderness, able to move all 4 extremities, pedal pulses palpated Objective Labs 04/24/24 05:14 04/24/24 05:14 ABG Interpretation ABG results: 04/17/24 15:26 ABG pH 7.43 ABG pCO2 44 ABG pO2 65 L ABG HCO3 29 H ABG O2 Saturation 94 ABG Base Excess 4 H Quality Measures Quality Measures VTE prophylaxis Assessment & Plan Assessment Current Active Medications: Generic Name Dose Route Start Last Admin Trade Name Freq PRN Reason Stop Dose Admin Acetaminophen 650 mg 04/17/24 21:19 Acetaminophen 325 Mg Tablet PO 05/17/24 21:18 Q6HR PRN Mild Pain (1-3) & Fever >101 Amlodipine Besylate 10 mg 04/19/24 21:00 04/24/24 20:40 Amlodipine Besylate 5 Mg Tablet PO 05/19/24 20:59 10 mg HS GUS Administration Aspirin 81 mg 04/18/24 09:00 04/25/24 08:30 Aspirin Ec 81 Mg Tabec PO 05/18/24 08:59 81 mg QDAY GUS Administration Atorvastatin Calcium 80 mg 04/18/24 10:45 04/25/24 08:30 Atorvastatin Calcium 20 Mg Tablet PO 05/18/24 10:44 80 mg DAILY GUS Administration Clopidogrel Bisulfate 75 mg 04/20/24 09:00 04/25/24 08:30 Clopidogrel Bisulfate 75 Mg Tablet PO 05/20/24 08:59 75 mg QDAY GUS Administration Heparin Sodium (Porcine) 5,000 unit 04/18/24 09:00 04/25/24 08:28 Heparin Sod Inj 5000 Unit/Ml Vial SC 05/02/24 08:59 5,000 unit Q12H GUS Administration Lisinopril 20 mg/ Lisinopril 30 mg 04/20/24 09:00 04/25/24 08:29 10 mg PO 05/20/24 08:59 30 mg QDAY GUS Administration Nicotine 21 mg 04/18/24 14:00 04/25/24 08:30 Nicotine Patch 21 Mg/24 Hr Patch.Td24 TOP 05/18/24 13:59 21 mg QDAY GUS Administration Ondansetron HCl 4 mg 04/17/24 19:39 Ondansetron Inj 2 Mg/Ml Inj 2 Ml IV 05/17/24 19:38 Q6H PRN NAUSEA OR VOMITING Protocol Plan Mr. Cheek is a 48-year-old male with past medical history significant for hypertension, admits to noncompliance with medications presented to the ED after a ground-level fall at the [facility]. #Suspected valvular vegetations or abnormalities Pt has history of poly substance use and history of embolic stroke In the setting of acute encephalopathy and CT scan evident of Old appearing infarcts basal ganglia and left occipital lobe TTE with bubble study was negative MAREK done to rule out any vegetation or valvular abnormalities Patient has no complaints of dysphagia, pain with swallowing, or throat pain, cough post MAREK MAREK shows: Bubble study negative for any PFO or ASD. No LA or ROYAL thrombus. Normal LV size and function. Estimated LVEF is 55 to 60% Normal RV size and function. Mild TR, trace to mild MR. No pericardial effusion -No further cardiac management needed for this patient #Acute encephalopathy- resolved #Acute CVA rule out Pt presented on 04/17 with acute encephalopathy with has since resolved Pt currently has residual weakness on the upper and lower extremity CT findings of suspicious acute infarct left parietal white matter and evident of Old appearing infarcts basal ganglia and left occipital lobe MRI with MRA: Small acute infarcts right and left temporal lobe as above, Prominent chronic microvascular white matter change, Suspicious for 50-70% stenosis origin right internal carotid artery, recommend carotid Doppler sonography follow-up, 70% stenosis origin of a right middle cerebral artery trifurcation branch -Pt is started on plavix, aspirin and statin -Neurology is following #Primary Hypertension Pt has hx of HTN but admits to non compliance with his medication. BP was uncontrolled on admission BP 205/106 -Pt bp is currently well controlled with lisinopril and amlodipine #Acute kidney injury - improved Baseline Cr 1.1 during this admission and creatinine peaked 1.4. Likely secondary to prerenal azotemia. -monitor Daily BMP -Avoid nephrotoxins, renally dose medications -Pt is tolerating oral diet, encouraged to increase oral intake #Polysubstance use disorder Pt has history of tabacco use, daily marijuana use and meth use -Nicotine patch ordered -referral to web content & social media manager Assessment and plan discussed with my attending physician Dr. Anai Escamilla MD PGY?1 Attending Provider Attestation/Addendum I have personally seen and examined the patient separately on the above date of service and discussed the plan of care with the resident. I reviewed the resident Dr. Gokul Tobin consultation progress note and agree with the resident findings and plan in the note above and have also edited the documentation to reflect my findings and plan. Rupesh Ospina M.D. Interventional Cardiology
[2024-04-25] MEDS: amLODIPine BESYLATE 5 MG TABLET 10 MG PO (21:55)
[2024-04-25] MEDS: ACETAMINOPHEN 325 MG TABLET 650 MG PO (23:37)
[2024-04-26] VITALS (8 sets, daily range): BP systolic 109–135; BP diastolic 80–88; PULSE 65–84; RESP 17–19; TEMP 36.2–36.9; O2SAT 93–95; BMI 29.9
[2024-04-26 06:22] LABS: Albumin, Serum 3.7 g/dL (3.6-5.1)
[2024-04-26] MEDS: ATORVASTATIN CALCIUM 20 MG TABLET 80 MG PO (08:28)
[2024-04-26] MEDS: ASPIRIN EC 81 MG TABEC PO (08:29)
[2024-04-26] MEDS: NICOTINE PATCH 21 MG/24 HR PATCH.TD24 TOP (08:30)
[2024-04-26] MEDS: CLOPIDOGREL BISULFATE 75 MG TABLET PO (08:30)
[2024-04-26] MEDS: HEPARIN SOD INJ 5000 UNIT/ML VIAL SC ×2 (08:43→20:57)
--- NOTE | 2024-04-26 09:17 | PC.SS ---
SS spoke to Shira at [facility], she received auth but stated she still needs an DARREN. Per Shira worst case scenario tomorrow.
--- NOTE | 2024-04-26 09:21 | PD.RESPRO ---
Documentation for date of: 04/26/24 Subjective Subjective Interval history: No acute overnight events reported. Patient is seen and examined at bedside this morning. Patient is saturating above 95% on room air. Vitals are stable with blood pressure 133/82 and heart rate 76. No new labs are obtained. Patient is awaiting discharge on either home health or rehab awaiting insurance approval. Patient is eager to leave he wants to leave the hospital and states if he does not go today he will be leaving AMA. Patient has no cardiac complaints denies chest pain, pressure, palpitations, dizziness or syncope. Patient also denies symptoms of dysphagia or pain in his throat satus poast MAREK. Pt has no complaints. Exam Vital Signs Temp Pulse Resp BP Pulse Ox O2 Del Method O2 Flow Rate 97.6 F 76 18 133/82 H 94 L Room Air 4 04/26/24 08:00 04/26/24 08:29 04/26/24 08:00 04/26/24 08:29 04/26/24 08:00 04/26/24 04:00 04/24/24 13:30 Narrative Exam GENERAL: A&Ox3 . Awake, Not in acute distress NEURO: no focal neurological deficits HEENT: Atraumatic, Normocephalic. mucous membranes moist. Eyes open, symmetrical, & clear, Poor dental hygeine with missing teeth HEART: Normal Heart Sounds LUNGS: Clear to auscultation with no wheezing or crackles. ABDOMEN: soft, non-distended, non-tender, bowel sounds heard, no guarding or rebound tenderness SKIN: No Rash or ecchymoses, multiple tattoos EXTREMITIES: No edema, tenderness, able to move all 4 extremities, pedal pulses palpated Objective Labs 04/24/24 05:14 04/24/24 05:14 Labs: Laboratory Results - last 24 hr 04/17/24 18:00 CSF Albumin 54.2 H CSF IgG (MS) 11.0 H IgG, Serum (MS) 1260 Serum Albumin 3.7 CSF/Serum IgG Index 0.60 CSF/Serum IgG Synthesis +10.3 H ABG Interpretation ABG results: 04/17/24 15:26 ABG pH 7.43 ABG pCO2 44 ABG pO2 65 L ABG HCO3 29 H ABG O2 Saturation 94 ABG Base Excess 4 H Quality Measures Quality Measures VTE prophylaxis Assessment & Plan Assessment Current Active Medications: Generic Name Dose Route Start Last Admin Trade Name Freq PRN Reason Stop Dose Admin Acetaminophen 650 mg 04/17/24 21:19 04/25/24 23:37 Acetaminophen 325 Mg Tablet PO 05/17/24 21:18 650 mg Q6HR PRN Administration Mild Pain (1-3) & Fever >101 Amlodipine Besylate 10 mg 04/19/24 21:00 04/25/24 21:55 Amlodipine Besylate 5 Mg Tablet PO 05/19/24 20:59 10 mg HS GUS Administration Aspirin 81 mg 04/18/24 09:00 04/26/24 08:29 Aspirin Ec 81 Mg Tabec PO 05/18/24 08:59 81 mg QDAY GUS Administration Atorvastatin Calcium 80 mg 04/18/24 10:45 04/26/24 08:28 Atorvastatin Calcium 20 Mg Tablet PO 05/18/24 10:44 80 mg DAILY GUS Administration Clopidogrel Bisulfate 75 mg 04/20/24 09:00 04/26/24 08:30 Clopidogrel Bisulfate 75 Mg Tablet PO 05/20/24 08:59 75 mg QDAY GUS Administration Heparin Sodium (Porcine) 5,000 unit 04/18/24 09:00 04/26/24 08:43 Heparin Sod Inj 5000 Unit/Ml Vial SC 05/02/24 08:59 5,000 unit Q12H GUS Administration Lisinopril 20 mg/ Lisinopril 30 mg 04/20/24 09:00 04/26/24 08:29 10 mg PO 05/20/24 08:59 30 mg QDAY GUS Administration Nicotine 21 mg 04/18/24 14:00 04/26/24 08:30 Nicotine Patch 21 Mg/24 Hr Patch.Td24 TOP 05/18/24 13:59 21 mg QDAY GUS Administration Ondansetron HCl 4 mg 04/17/24 19:39 Ondansetron Inj 2 Mg/Ml Inj 2 Ml IV 05/17/24 19:38 Q6H PRN NAUSEA OR VOMITING Protocol Plan Mr. Cheek is a 48-year-old male with past medical history significant for hypertension, admits to noncompliance with medications presented to the ED after a ground-level fall at the [facility]. #Suspected valvular vegetations or abnormalities -Pt has history of poly substance use and history of embolic stroke -In the setting of acute encephalopathy and CT scan evident of Old appearing infarcts basal ganglia and left occipital lobe -TTE with bubble study was negative -MAREK done on 04/24/24, with negative findings Bubble study negative for any PFO or ASD. No LA or ROYAL thrombus. Normal LV size and function. Estimated LVEF is 55 to 60% Normal RV size and function. Mild TR, trace to mild MR. No pericardial effusion -Status post MAREK, patient has no complaints of dysphagia, pain with swallowing, or throat pain. #Acute encephalopathy- resolved #Acute CVA rule out -Pt presented on 04/17 with acute encephalopathy with has since resolved -Pt currently has residual weakness on the upper and lower extremity -CT findings of suspicious acute infarct left parietal white matter and evident of Old appearing infarcts basal ganglia and left occipital lobe -MRI with MRA: Small acute infarcts right and left temporal lobe as above, Prominent chronic microvascular white matter change, Suspicious for 50-70% stenosis origin right internal carotid artery, recommend carotid Doppler sonography follow-up, 70% stenosis origin of a right middle cerebral artery trifurcation branch -Pt is started on plavix, aspirin and statin -Neurology is following #Primary Hypertension -Pt has hx of HTN but admits to non compliance with his medication. BP was uncontrolled on admission BP 205/106 -Pt bp is currently well controlled with lisinopril 30mg daily and amlodipine 10mg at night #Acute kidney injury - improved -Baseline Cr 1.1 during this admission and creatinine peaked 1.4 -Likely secondary to prerenal azotemia -monitor Daily BMP -Avoid nephrotoxins, renally dose medications -Pt is tolerating oral diet, encouraged to increase oral intake #Polysubstance use disorder -Pt has history of tabacco use, daily marijuana use and meth use -Nicotine patch ordered -referral to social service worker Assessment and plan discussed with my attending physician Dr. Anai Tobin (PGY-1)- Internal medicine resident Attending Provider Attestation/Addendum I have personally seen and examined the patient separately on the above date of service and discussed the plan of care with the resident. I reviewed the resident Dr. Gokul Tobin consultation progress note and agree with the resident findings and plan in the note above and have also edited the documentation to reflect my findings and plan. Rupesh Ospina M.D. Interventional Cardiology
--- NOTE | 2024-04-26 11:18 | PC.SS ---
SS met with pt and his mother Lois at bedside to discuss DC planning. SS informed them auth has been obtained but we are pending an DARREN. Pt is adamant on going home. Pt mother does not feel comfortable taking him home at this time due to his weakness and unsteadiness. PT Matt came into room during conversation and expressed to pt the importance of going to SNF for rehab and it being unsafe for him to DC home at this time. SS expressed to pt SS will reach out to [facility] and see if there is any possibility of the DARREN being granted today.
--- NOTE | 2024-04-26 11:41 | ESDS_ITS ---
<Statement entered by Franklin Roqnuillo MD - 04/28/24 13:24> I reviewed above note and agree with findings and plans. I have also personally examined the patient with medicine team and went over assessment and plan with medical team including network internship and resident physician. Planned Discharge Date 04/26/24 DS: Providers Provider Date of admission: 04/17/24 19:39 Primary care physician: Physician No Primary/Family Admitting Provider: Da Monroe MD Attending Provider on Admission: Franklin Ronquillo MD Consults: 04/17/24 19:46 Consult to Neurology / Tele-Neurology Stat Comment: CVA Workup Consulting Provider: Petros Puckett 04/17/24 19:47 Referral Physical Therapy Routine Comment: Physician Instructions: Referral Speech Therapy Routine Comment: 04/17/24 22:07 Health Equity Referral - Nutrition Routine Comment: Positive screening for nutrition needs. Health Equity Referral - Transportation Routine Comment: Positive screening for transportation needs. 04/23/24 07:47 Consult to Cardiology Routine Comment: MAREK with bubble study Consulting Provider: Rupesh Ospina Attending Provider on DC: Franklin Ronquillo MD Discharging Provider: Pavel Escamilla MD DS: Diagnosis Problem List Completed Was Problem List Reviewed/Reconciled?: Yes Hospital Course Hospital Course Hospital course: 04/18/2024: Patient was originally scheduled be discharged yesterday (04/25/2024), however patient stayed overnight due to insurance authorization delay. Patient seen and examined at bedside, no new complaints, doing well, eager for discharge. After conversation with patient, decision was made to discharge patient home with home health. Patient remains safe and stable for discharge. Discharge recommendations otherwise remain the same. 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 On initial evaluation in ED patient reported he does not remember anything and was not able to provide much history. Patient was admitted for workup of CVA and neurologist Dr. Puckett was consulted. He was started on aspirin, plavix and statin. CT head showed acute left infarct in left parietal white matter, negative for hemorrhage. MRI head showed small acute infarcts of right and left temporal lobe, prominent chronic microvascular white matter changes, 50-70% stenosis of right ICA, 70% stenosis at origin of the right MCA. An LP was done which showed increased protein. TTE and MAREK were done, which did not show any PFO or thrombus. He remained in sinus rhythm throughout his hospital stay. Patient is back to baseline mentation without any javon neurologic residual deficits. He was counselled extensively on medication compliance, the seriousness of his strokes, and methamphetamine cessation. Patient to be discharged to SNF with the following recommendations: - Take amlodipine and lisinopril for your high blood pressure - Take aspirin, atorvastatin, and plavix every day for your stroke. - Follow up with your primary care physician within 1 week of discharge. If you do not have a primary care physician, please follow up with the [facility] Residents clinic ([phone]) - Follow up with a heart doctor (corporate coordinator), you may need a 24 hour holter to check for any arrhythmias causing your strokes - Follow up with a blood doctor (schedule analyst) for a hypercoaguable panel work up - Follow up with the brain doctor (neurologist) for your stroke I have reviewed and discussed the patient's care with my attending, Dr. Yg Escamilla MD PGY?1 #Acute embolic-pattern CVA #Acute encephalopathy, resolved #Hypertension #Medication noncompliance #Electrolyte imbalance #Polysubstance dependence disorder Status at Discharge Functional status at discharge: uses cane/walker Overall status at discharge: patient is progressing back to baseline Time Spent with Patient Time attestation: Total time spent providing and/or coordinating discharge services: Home Health Home Health Referral Orders: 04/26/24 09:41 Home Health Referral Routine Reason For Exam: PT Home-Bound The patient must either because of illness or injury, need the aid of supportive devices such as crutches, canes, wheelchairs, and walkers; the use of special transportation; or the assistance of another person in order to leave their place of residence; OR have a condition such that leaving his or her home is medically contraindicated. In addition, the patient also meets the following criteria: patient is normally unable to leave the home and leaving home requires considerable taxing effort. Addendum to Home Health Certification Practitioner's Certification: I certify that the patient has been under my care in the hospital and the care of attending physician (see below). We had a vopk-ye-[id number] encounter on (see date below). My clinical findings indicate that the patient is home bound per the above criteria and the Home Health Services noted in these orders are medically necessary. The primary reason for the [id number] encounter is related to the fact that the patient requires home health services. Date Certifying Ebua-io-Ijyv Physician Encounter: 04/17/24 Physician's Name who will Assume Oversight for HH Services: Physician No Primary/Family RN PLASMA CENTER - Community Resources: No PT to Evaluate: Yes PT to evaluate and provide a treatmnet plan to increase patient's mobility and strength. Wound Care: No IV Therapy: No RN Safety Evaluation: Yes RN to evaluate and create a plan of care that will produce positive outcomes. Palliative Treatment: No Palliative treatment and evaluate the need for hospice. Home Health Aide - Personal Care: No Home Health Aide to assist with any ADL's. Exam Vital Signs Temp Pulse Resp BP Pulse Ox O2 Del Method O2 Flow Rate 97.6 F 76 18 133/82 H 94 L Room Air 4 04/26/24 08:00 04/26/24 08:29 04/26/24 08:00 04/26/24 08:29 04/26/24 08:00 04/26/24 04:00 04/24/24 13:30 Narrative Exam GENERAL: A&Ox3 . Awake, Not in acute distress NEURO: no focal neurological deficits HEENT: Atraumatic, Normocephalic. mucous membranes moist. Eyes open, symmetrical, & clear, Poor dental hygeine with missing teeth HEART: Normal Heart Sounds LUNGS: Clear to auscultation with no wheezing or crackles. ABDOMEN: soft, non-distended, non-tender, bowel sounds heard, no guarding or rebound tenderness SKIN: No Rash or ecchymoses, multiple tattoos EXTREMITIES: No edema, tenderness, able to move all 4 extremities, pedal pulses palpated Discharge Plan Plan Patient Disposition: Home w/HOME HEALTH Patient condition on transfer: Stable Prescriptions/Referrals Prescriptions/Med Rec: New amlodipine 10 mg tablet 10 mg PO HS 30 Days Qty: 30 0RF aspirin [Ecotrin Low Strength] 81 mg Tablet,Delayed Release (Dr/Ec) 81 mg PO QDAY 30 Days Qty: 30 0RF atorvastatin 80 mg tablet 80 mg PO DAILY 30 Days Qty: 30 0RF clopidogrel 75 mg Tablet 75 mg PO QDAY 30 Days Qty: 30 0RF lisinopril 30 mg tablet 30 mg PO QDAY 30 Days Qty: 30 0RF Referrals: No Primary/Family,Physician [Primary Care Provider] - Patient/Caregiver Discharge Instructions Discharge Activity: as per physical therapy Other Discharge Activity Instructions:: - Take amlodipine and lisinopril for your high blood pressure - Take aspirin, atorvastatin, and plavix every day for your stroke. - Follow up with your primary care physician within 1 week of discharge. If you do not have a primary care physician, please follow up with the [facility] Residents clinic ([phone]) - Follow up with a heart doctor (corporate coordinator), you may need a 24 hour holter to check for any arrhythmias causing your strokes - Follow up with a blood doctor (schedule analyst) for a hypercoaguable panel work up - Follow up with the brain doctor (neurologist) for your stroke Education Materials: Effects of a Stroke on the ..., Healthy Lifestyle to Prevent ... Print Language: Moroccan Stand Alone Forms: Cynthia Award Info., Patient Portal Info Letter Discharge Order Discharge Orders: Discharge (Routine); Ordered 04/25/24 Ordered By: Coral Payan Quality Discharge Quality Measures VTE prophylaxis
--- NOTE | 2024-04-26 14:31 | PC.SS ---
SS spoke to Shira at [facility], she got in touch with insurance and DARREN is in process. If it is not done today, tomorrow is likely. SS went and updated pt, he seemed pleasant and understanding. Per pt he can wait until tomorrow. SS updated Dr. Ronquillo as well.
[2024-04-26] MEDS: amLODIPine BESYLATE 5 MG TABLET 10 MG PO (20:56)
--- NOTE | 2024-04-26 22:30 | PD.NEUROPROG ---
Documentation for date of: 04/26/24 Subjective Subjective Interval history: Patient was seen in telemetry today with his mom at the bedside. No new symptoms reported. He is tolerating oral diet well. Denies any weakness, paresthesias or trouble with balance. He was able to walk in the hallway with the physical therapist using the walker. Exam - Neurology Vital Signs Temp Pulse Resp BP Pulse Ox O2 Del Method O2 Flow Rate 98.5 F 74 18 131/87 H 95 Room Air 4 04/26/24 20:00 04/26/24 20:56 04/26/24 20:00 04/26/24 20:56 04/26/24 20:00 04/26/24 20:00 04/24/24 13:30 Narrative Exam GENERAL APPEARANCE: Well hydrated, well-nourished in no acute distress. HEENT: Normocephalic, atraumatic, extraocular movements intact. Pupils: Equal reacting to light and accommodation NECK: Supple, no JVD or bruits. CARDIOVASULAR: Heart: S1, S2 heard, regular without S3-S4 or murmur no rubs or gallops. LUNGS/CHEST: Clear to auscultation bilaterally. No rails, rhonchi, or wheezing. Normal inspection. ABDOMEN: Soft, nontender, with normal bowel sounds. No pulsatile masses. No rebound, rigidity, or guarding. Normal inspection and palpation. EXTREMITIES: Normal inspection and palpation. No edema, clubbing or cyanosis. SKIN: Warm and dry without rashes. Normal inspection. MUSCULOSKELETAL: No cervical, thoracic, lumbar or midline bony tenderness. Normal inspection. NEURO: Alert, awake and oriented x3. Cranial nerves: II through XII grossly intact. Speech and language: Normal with no dysarthria or dysphasia. Motor system: Tone and bulk: Normal: Strength: 5 out of 5 in all 4 extremities; No pronator drift noted. Deep tendon reflexes: 2+ bilaterally symmetrical. Plantar reflex: Downgoing bilaterally. Sensory system: Intact to all modalities of sensation bilaterally. Coordination: Intact to [id number]-[id number]-[id number] and hgfu-whgh-axjp test bilaterally. No ataxia, no dysmetria, or dysdiadochokinesia noted. No intention tremors noted. Gait: Normal. Toe, heel, tandem walk all are normal. Romberg: Negative. No signs of meningeal irritation noted. PSYCHIATRIC: Normal mood and affect. Objective Labs 04/24/24 05:14 04/24/24 05:14 Labs: Laboratory Results - last 24 hr 04/17/24 18:00 CSF Albumin 54.2 H CSF IgG (MS) 11.0 H IgG, Serum (MS) 1260 Serum Albumin 3.7 CSF/Serum IgG Index 0.60 CSF/Serum IgG Synthesis +10.3 H ABG Interpretation ABG results: 04/17/24 15:26 ABG pH 7.43 ABG pCO2 44 ABG pO2 65 L ABG HCO3 29 H ABG O2 Saturation 94 ABG Base Excess 4 H Assessment & Plan Assessment and plan (1) Encephalopathy: Status: Resolved (2) Acute CVA (cerebrovascular accident): Status: Acute Assessment and plan: Based on the MRI brain with small acute infarct in the right parietal area. Increased signal changes in FLAIR sequence is suspicious for multiple sclerosis, send the CSF for MS panel. MRA findings with intracranial stenosis. This could have been related to longstanding uncontrolled hypertension and drug usage. Continue Plavix along with aspirin with statin for prophylaxis. Transesophageal echocardiogram: negative. Pending rehab placement
[2024-04-27] VITALS: BP 157/95; PULSE 72; RESP 18; TEMP 36.2; O2SAT 96
[2024-04-27 04:00] VITALS: BP 116/84; PULSE 64; RESP 18; TEMP 36.1; O2SAT 95
[2024-04-27 06:00] VITALS: BMI 29.9
[2024-04-27 08:00] VITALS: BP 113/85; PULSE 64; RESP 18; TEMP 36.2; O2SAT 95
[2024-04-27] MEDS: ATORVASTATIN CALCIUM 20 MG TABLET 80 MG PO (09:32)
[2024-04-27 09:33] VITALS: BP 125/78; PULSE 88
[2024-04-27] MEDS: ASPIRIN EC 81 MG TABEC PO (09:34)
[2024-04-27] MEDS: CLOPIDOGREL BISULFATE 75 MG TABLET PO (09:34)
[2024-04-27] MEDS: HEPARIN SOD INJ 5000 UNIT/ML VIAL SC (09:34)
[2024-04-27] MEDS: NICOTINE PATCH 21 MG/24 HR PATCH.TD24 TOP (09:35)
--- NOTE | 2024-04-27 09:44 | PC.SS ---
#[id number] Reservation for [facility], pending ETA to +[facility], packet left on chart. Misty REAL.
--- NOTE | 2024-04-27 10:59 | ESDS_ITS ---
<Statement entered by Franklin Ronquillo MD - 05/02/24 04:06> I reviewed above note and agree with findings and plans. I have also personally examined the patient with medicine team and went over assessment and plan with medical team including internal medicine hospitalist and resident physician. Addendum Discharge Addendum Date of report being addended: 04/27/24 Narrative: Patient was scheduled to be discharged on 04/26 however patient stated due to insurance authorization delay. Patient got the authorization this morning and was set up to discharge at afternoon. Patient will be discharged to SNF. 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 On initial evaluation in ED patient reported he does not remember anything and was not able to provide much history. Patient was admitted for workup of CVA and neurologist Dr. Puckett was consulted. He was started on aspirin, plavix and statin. CT head showed acute left infarct in left par ietal white matter, negative for hemorrhage. MRI head showed small acute infarcts of right and left temporal lobe, prominent chronic microvascular white matter changes, 50-70% stenosis of right ICA, 70% stenosis at origin of the right MCA. An LP was done which showed increased protein. TTE and MAREK were done, which did not show any PFO or thrombus. He remained in sinus rhythm throughout his hospital stay. Patient is back to baseline mentation without any javon neurologic residual deficits. He was counselled extensively on medication compliance, the seriousness of his strokes, and methamphetamine cessation. #Problem list: #Acute embolic-pattern CVA #Acute encephalopathy, resolved #Hypertension #Medication noncompliance #Electrolyte imbalance #Polysubstance dependence disorder Patient to be discharged to SNF with the following recommendations: - Take amlodipine and lisinopril for your high blood pressure - Take aspirin, atorvastatin, and plavix every day for your stroke. - Follow up with your primary care physician within 1 week of discharge. If you do not have a primary care physician, please follow up with the [facility] Residents clinic ([phone]) - Follow up with a heart doctor (platen press operator apprentice), you may need a 24 hour holter to check for any arrhythmias causing your strokes - Follow up with a blood doctor (battery container tester aluminum) for a hypercoaguable panel work up - Follow up with the brain doctor (neurologist) for your stroke Patient was seen and discussed with attending physician, Dr. Yg Ashford MD, PGY 2
[2024-04-27 12:00] VITALS: BP 132/88; PULSE 73; RESP 18; TEMP 36.2; O2SAT 94
--- NOTE | 2024-04-27 12:00 | PC.SS ---
SS met with pt and his mom Lois at . SS provided Lois with [facility] information. ETA set for 1330. [facility] stated they would come earlier if they can
--- NOTE | 2024-04-27 19:47 | PD.RESPRO ---
Documentation for date of: 04/27/24 Subjective Subjective Interval history: Elevated at bedside, reported no acute symptoms, mother was present in the room, questions and concerns answered, patient updated regarding results of the MAREK, which showed no vegetations. recommended following up with neurology outpatient for further workup of stroke/demyelinating disease, patient can be discharged from cardiac standpoint. Exam Vital Signs Temp Pulse Resp BP Pulse Ox O2 Del Method O2 Flow Rate 97.1 F 73 18 132/88 H 94 L Room Air 4 04/27/24 12:04/27/24 12:04/27/24 12:04/27/24 12:04/27/24 12:04/27/24 12:04/24/24 13:30 Narrative Exam GENERAL: A&Ox3 . Awake, Not in acute distress NEURO: no focal neurological deficits HEENT: Atraumatic, Normocephalic. mucous membranes moist. Eyes open, symmetrical, & clear, Poor dental hygeine with missing teeth HEART: Normal Heart Sounds LUNGS: Clear to auscultation with no wheezing or crackles. ABDOMEN: soft, non-distended, non-tender, bowel sounds heard, no guarding or rebound tenderness SKIN: No Rash or ecchymoses, multiple tattoos EXTREMITIES: No edema, tenderness, able to move all 4 extremities, pedal pulses palpated Objective Labs 04/24/24 05:14 04/24/24 05:14 ABG Interpretation ABG results: 04/17/24 15:26 ABG pH 7.43 ABG pCO2 44 ABG pO2 65 L ABG HCO3 29 H ABG O2 Saturation 94 ABG Base Excess 4 H Quality Measures Quality Measures VTE prophylaxis Assessment & Plan Assessment Current Active Medications: Generic Name Dose Route Start Last Admin Trade Name Freq PRN Reason Stop Dose Admin Acetaminophen 650 mg 04/17/24 21:19 04/25/24 23:37 Acetaminophen 325 Mg Tablet PO 05/17/24 21:18 650 mg Q6HR PRN Administration Mild Pain (1-3) & Fever >101 Amlodipine Besylate 10 mg 04/19/24 21:00 04/25/24 21:55 Amlodipine Besylate 5 Mg Tablet PO 05/19/24 20:59 10 mg HS GUS Administration Aspirin 81 mg 04/18/24 09:00 04/26/24 08:29 Aspirin Ec 81 Mg Tabec PO 05/18/24 08:59 81 mg QDAY GUS Administration Atorvastatin Calcium 80 mg 04/18/24 10:45 04/26/24 08:28 Atorvastatin Calcium 20 Mg Tablet PO 05/18/24 10:44 80 mg DAILY GUS Administration Clopidogrel Bisulfate 75 mg 04/20/24 09:00 04/26/24 08:30 Clopidogrel Bisulfate 75 Mg Tablet PO 05/20/24 08:59 75 mg QDAY GUS Administration Heparin Sodium (Porcine) 5,000 unit 04/18/24 09:00 04/26/24 08:43 Heparin Sod Inj 5000 Unit/Ml Vial SC 05/02/24 08:59 5,000 unit Q12H GUS Administration Lisinopril 20 mg/ Lisinopril 30 mg 04/20/24 09:00 04/26/24 08:29 10 mg PO 05/20/24 08:59 30 mg QDAY GUS Administration Nicotine 21 mg 04/18/24 14:00 04/26/24 08:30 Nicotine Patch 21 Mg/24 Hr Patch.Td24 TOP 05/18/24 13:59 21 mg QDAY GUS Administration Ondansetron HCl 4 mg 04/17/24 19:39 Ondansetron Inj 2 Mg/Ml Inj 2 Ml IV 05/17/24 19:38 Q6H PRN NAUSEA OR VOMITING Protocol Plan Mr. Cheek is a 48-year-old male with past medical history significant for hypertension, admits to noncompliance with medications presented to the ED after a ground-level fall at the [facility]. #Suspected valvular vegetations or abnormalities -Pt has history of poly substance use and history of embolic stroke -In the setting of acute encephalopathy and CT scan evident of Old appearing infarcts basal ganglia and left occipital lobe -TTE with bubble study was negative -MAREK done on 04/24/24, with negative findings Bubble study negative for any PFO or ASD. No LA or ROYAL thrombus. Normal LV size and function. Estimated LVEF is 55 to 60% Normal RV size and function. Mild TR, trace to mild MR. No pericardial effusion -Status post MAREK, patient has no complaints of dysphagia, pain with swallowing, or throat pain. #Acute encephalopathy- resolved #Acute CVA rule out -Pt presented on 04/17 with acute encephalopathy with has since resolved -Pt currently has residual weakness on the upper and lower extremity -CT findings of suspicious acute infarct left parietal white matter and evident of Old appearing infarcts basal ganglia and left occipital lobe -MRI with MRA: Small acute infarcts right and left temporal lobe as above, Prominent chronic microvascular white matter change, Suspicious for 50-70% stenosis origin right internal carotid artery, recommend carotid Doppler sonography follow-up, 70% stenosis origin of a right middle cerebral artery trifurcation branch -Pt is started on plavix, aspirin and statin -Neurology is following #Primary Hypertension -Pt has hx of HTN but admits to non compliance with his medication. BP was uncontrolled on admission BP 205/106 -Pt bp is currently well controlled with lisinopril 30mg daily and amlodipine 10mg at night #Acute kidney injury - improved -Baseline Cr 1.1 during this admission and creatinine peaked 1.4 -Likely secondary to prerenal azotemia -monitor Daily BMP -Avoid nephrotoxins, renally dose medications -Pt is tolerating oral diet, encouraged to increase oral intake #Polysubstance use disorder -Pt has history of tabacco use, daily marijuana use and meth use -Nicotine patch ordered -referral to manager social services Assessment and plan discussed with my attending physician Dr. Anai De Luna (PGY-2)- Internal medicine resident Attending Provider Attestation/Addendum I have personally seen and examined the patient separately on the above date of service and discussed the plan of care with the resident. I reviewed the resident Dr. Natalie De Luna consultation progress note and agree with the resident findings and plan in the note above and have also edited the documentation to reflect my findings and plan. Rupesh Ospina M.D. Interventional Cardiology
[2024-04-29 06:57] LABS: Myelin Basic Protein, CSF* <2.0 mcg/L (< OR = 4.0); Oligoclonal Bands, CSF* ABSENT (ABSENT)
== END 2024-04-27 13:34 | disposition skilled nursing facility (03) | DRG 45 ==
LOC: SERX 18:25 → SERHOLD 20:09 → S2NX 21:55 → S3SX 04-25 19:54
PROVIDERS: Emergency Medicine; Internal Medicine Cardiovascular Disease; Psychiatry & Neurology Neurology; Admitting Provider Internal Medicine; Emergency Provider Emergency Medicine; Visit Provider Internal Medicine
PROC: (CPT 93312; principal; 2024-04-24 11:45)
DX: I63.40 Cerebral infarction due to embolism of unspecified cerebral artery (principal); G93.40 Encephalopathy, unspecified; I10 Essential (primary) hypertension; E87.6 Hypokalemia; I69.351 Hemiplegia and hemiparesis following cerebral infarction affecting right dominant side; N17.9 Acute kidney failure, unspecified; F15.90 Other stimulant use, unspecified, uncomplicated; F17.200 Nicotine dependence, unspecified, uncomplicated; I69.354 Hemiplegia and hemiparesis following cerebral infarction affecting left non-dominant side; I65.21 Occlusion and stenosis of right carotid artery; I16.1 Hypertensive emergency; F12.20 Cannabis dependence, uncomplicated; F17.210 Nicotine dependence, cigarettes, uncomplicated; Z91.148 Patient's other noncompliance with medication regimen for other reason; Z79.82 Long term (current) use of aspirin; Z79.899 Other long term (current) drug therapy; Z79.02 Long term (current) use of antithrombotics/antiplatelets; W18.30XA Fall on same level, unspecified, initial encounter
CPT/HCPCS: 36415; 36600; 70250; 70450; 70544; 71045; 74018; 80053; 80061; 80307; 80320; 81001; 82040; 82042; 82310; 82784; 82803; 82945; 83036; 83605; 83735; 83873; 83916; 84132; 84145; 84157; 84443; 85025; 85610; 87070; 87205; 89051; 92610; 93005; 93306; 93312; 93880; 96374; 96375; 97162; 99152; 99285; J0360; J1643; J2250; J2470; J3010; J3480; J3490; A9270; G0480; J1920

== ENCOUNTER 2024-06-23 23:32 | Inpatient (IN) | payer MEDICAID, SELFPAY ==
[2024-06-23 23:34] VITALS: BP 210/156; PULSE 112; RESP 18; O2SAT 100
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
--- NOTE | 2024-06-23 23:41 | XR_ITS ---
Examination: CT cervical spine without contrast 2-D sagittal reconstructions 2-D coronal reconstructions 3-D reconstructions. Exam date and time:June 24, 2024 at 0731 hours Comparison April 01, 2016 INDICATIONS: Patient fell today with injury to the neck, neck pain CTDI:vol (mGy) 15.5 DLP: (mGycm) 355 Technique: Multiple 2 mm axial sections of the cervical spine have been obtained. The coronal and sagittal reconstructions have been obtained. 3-D reconstructions have been obtained. Low dose protocols were performed. One or more of the following dose reduction techniques were used; automated exposure control, adjustment of the mA and/or KV according to patient size, use of iterative reconstruction technique. Findings: Axial sections demonstrate intact base of the skull. C1 exhibit satisfactory relationship to the odontoid. No acute cervical vertebral body fracture seen. Alignment posterior spinous processes satisfactory. Impression: No acute cervical fracture.
--- NOTE | 2024-06-23 23:48 | XR_ITS ---
Examination: AP chest single view Technique AP portable upright chest single view. Examination time: June 24, 2024 0038 hours Comparison April 18, 2024 INDICATION: Stroke alert, sepsis protocol sepsis alert today FINDINGS: Minimal prominence left ventricle Mild vascular congestion. No lobar pneumonia or pulmonary edema Moderate osteopenia IMPRESSION: Mild vascular congestion No lobar pneumonia
[2024-06-23 23:49] LABS: Basophils # (Auto) 0.1 Thou/mm3 (0.0-0.2); Basophils % (Auto) 0 % (0-2.5); Eosinophils # (Auto) 0.4 Thou/mm3 (0.0-0.5); Eosinophils % (Auto) 3 % (0-10); Hematocrit 45.2 % (41.0-53.0); Hemoglobin 15.2 g/dL (13.5-16.0); Immature Granulocytes % (Auto) 0 % (0-0); Immature Granulocytes Auto 0.04 Thou/mm3 (0.00-0.00); Lymphocytes # (Auto) 2.7 Thou/mm3 (1.0-4.8); Lymphocytes % (Auto) 20 % (10-50); Mean Corpuscular HGB Conc 33.6 g/dl (31.0-37.0); Mean Corpuscular Hemoglobin 28.5 pg (25.0-35.0); Mean Corpuscular Volume 85 fL (80-100); Monocytes # (Auto) 0.9 Thou/mm3 (0.0-0.8); Monocytes % (Auto) 7 % (0-12); Neutrophils # (Auto) 9.5 Thou/mm3 (1.8-7.7); Neutrophils % (Auto) 70 % (37-80); Nucleated Red Blood Cell % 0 /100 WBC (0); Platelet Count 332 Thou/mm3 (140-440); Red Blood Count 5.34 Miln/mm3 (4.50-5.90); White Blood Count 13.6 Thou/mm3 (3.8-10.6)
[2024-06-23 23:52] LABS: Lactate (Lactic Acid) 1.2 mMol/L (0.4-2.0)
[2024-06-24] VITALS (25 sets, daily range): BP systolic 155–216; BP diastolic 92–136; PULSE 77–111; RESP 16–97; TEMP 36.2–36.8; O2SAT 95–99; BMI 12.0
--- NOTE | 2024-06-24 | XR_ITS ---
Examinations: MRI Brain without intravenous contrast. MRA brain without intravenous contrast. MRA carotids without intravenous contrast 3-D vascular reconstructions Date and time of exam: June 16, 2024 1102 hours Comparison April 19, 2024 INDICATIONS: Stroke alert June 23, 2024, onset focal neurologic deficit left-sided hemiparesis, methamphetamine use Technique: Multiple axial and sagittal images of the brain have been obtained MRA brain carotid images without contrast obtained, including 3-D postprocessing, vascular maximum intensity projection images Findings: [place] is not enlarged. The optic chiasm and infundibular stalk are not remarkable. Prepontine and interpeduncular cisterns are not enlarged. No localized enlargement of the medulla or mehdi. Fourth ventricle and cerebellar tonsils normal in position. Subacute hemorrhage is not seen. Fourth ventricle is midline. Mass in the cerebellopontine angle region is not evident. 7th and 8th nerve complexes exhibits symmetry. Globes are symmetrical with no retro-orbital mass. Increased white matter signal prominent, old infarcts right cerebellar hemisphere left parietal lobe Diffusion-weighted images demonstrate 10 mm focus restricted diffusion right basal ganglia Mass-effect upon the ventricular system is not identified. MRA carotid images degraded by patient motion. MRA brain images lack of filling P3 segment P2 segment left posterior cerebral artery Impression: Negative for acute hemorrhage mass effect or midline shift 10 mm acute infarct right basal ganglia Lack of filling P2 and P2 segments left posterior cerebral artery
[2024-06-24 00:25] LABS: Alanine Aminotransferase 12 U/L (10-49); Albumin, Serum 4.2 gm/dL (3.5-5.0); Albumin/Globulin Ratio 1.3 (1.2-2.2); Alkaline Phosphatase 113 U/L (46-116); Anion Gap 8 (7-16); Aspartate Amino Transferase 18 U/L (0-34); BUN/Creatinine Ratio 16 Ratio (12-20); Bilirubin,Total 0.4 mg/dL (0.3-1.2); Blood Urea Nitrogen 24 mg/dL (9-23); Calcium 9.7 mg/dL (8.3-10.6); Calcium (Corrected) 9.7 mg/dL (8.5-10.1); Chloride 106 mMol/L (98-107); Creatinine (Component) 1.5 mg/dL (0.6-1.3); Globulin 3.3 gm/dL (2.3-3.5); Glucose 105 mg/dL (74-106); Osmolality,Calculated 281 (275-295); Sodium 139 mMol/L (136-145); Total Protein 7.5 gm/dL (5.7-8.2); Troponin I < 0.020 ng/mL (0.0-0.045); eGFR 58 See Note
--- NOTE | 2024-06-24 00:32 | ESCONSULT_ITS ---
Tele Neuro Consultation Consultation Date 06/24/24 Most Recent Vital Signs Last Vital Signs Temp 98.1 F 06/24/24 00:19 Pulse 111 H 06/24/24 00:19 Resp 18 06/24/24 00:19 BP 207/129 H 06/24/24 00:19 Pulse Ox 96 06/24/24 00:19 O2 Del Method Room Air 06/24/24 00:19 Consultation Narrative [facility] Tele[facility] Consult [facility] Date of :???1975 Identification Number:??? Date of Service:???06/23/2024 23:30:38 Diagnosis:?I63.89 - Cerebrovascular accident (CVA) due to other mechanism ([facility]) Impression: ?This is a 48 year old man with history of stroke and hypertension here with left sided weakness and falls, unclear last known well. Presentation is concerning for stroke Our recommendations are outlined below. Recommendations: ? Stroke/Telemetry Floor ? Neuro Checks ? Bedside Swallow Eval ? DVT Prophylaxis ? IV Fluids, Normal Saline ? Head of Bed 30 Degrees ? Euglycemia and Avoid Hyperthermia (PRN Acetaminophen) ? Initiate dual antiplatelet therapy with Aspirin 81 mg daily and Clopidogrel 75 mg daily. ?OK to start controlling the blood pressure- last known well is possibly more than 24 hours ago ?higih intensity statin if not contraindicated ?CTA head and neck ?MRI brain ?Further management pend test results and clinical course Advanced Imaging: Advanced imaging has been ordered. Results pending. Metrics: Last Known Well: Unknown Dispatch Time: 06/23/2024 23:30:38 Arrival Time: 06/23/2024 23:32:00 Initial Response Time: 06/23/2024 23:32:40Symptoms: left sided weakness. Initial patient interaction: 06/23/2024 23:45:00 NIHSS Assessment Completed: 06/23/2024 23:54:00Patient is not a candidate for Thrombolytic. Thrombolytic Medical Decision: 06/23/2024 23:54:00Patient was not deemed candidate for Thrombolytic because of following reasons: LKW outside 4.[address] head showed no acute hemorrhage or acute core infarct. Primary Provider Notified of Diagnostic Impression and Management Plan on: 06/24/2024 00:23:32 History of Present Illness:Patient is a 48 year old Male. Patient was brought by EMS for symptoms of left sided weakness. This is a 48 year old man with history of stroke and hypertension here with left sided weakness and falls. Last known well is unclear- the patient believes he may have been at his normal yesterday evening (evening of 06/22/2024). History is limited. I did try to contact hismother but there was no answer and the voicemail box was full (called 2x) Past Medical History: ?Hypertension ?Stroke Other PMH:? hypertension stroke unable to obtain due to:?? Patient Is Confused Medications: No Anticoagulant use? No Antiplatelet use Reviewed EMR for current medications Other Medications Pertinent To Assessment Include: denied taking aspirin Allergies:? Allergies Unable To Obtain Due To:?Patient Is Confused Social History: Current Employee : patient has history of stroke- baseline is unclear Unable To Obtain Due To Patient Status :?Patient Is Confused Family History: Family History Cannot Be Obtained Because:Patient Is Confused ROS :?ROS Cannot Be Obtained Because:? Patient Is Confused Past Surgical History: Past Surgical History Cannot Be Obtained Because: Patient Is Confused There Is No Surgical History Contributory To Today?s Visit Examination: BP(210/156),?Pulse(112), 1A: Level of Consciousness - Alert; keenly responsive?+ 0 1B: Ask Month and Age - Both Questions Right?+ 0 1C: Blink Eyes & Squeeze Hands - Performs Both Tasks?+ 0 2: Test Horizontal Extraocular Movements - Normal?+ 0 3: Test Visual Mascorro - No Visual Loss?+ 0 4: Test Facial Palsy (Use Grimace if Obtunded) - Partial paralysis (lower face)? + 2 5A: Test Left Arm Motor Drift - No Movement?+ 4 5B: Test Right Arm Motor Drift - No Drift for 10 Seconds?+ 0 6A: Test Left Leg Motor Drift - No Effort Against [place]?+ 3 6B: Test Right Leg Motor Drift - No Drift for 5 Seconds?+ 0 7: Test Limb Ataxia (FNF/Heel-Ovalle) - No Ataxia?+ 0 8: Test Sensation - Normal; No sensory loss?+ 0 9: Test Language/Aphasia - Normal; No aphasia?+ 0 10: Test Dysarthria - Mild-Moderate Dysarthria: Slurring but can be understood?+ 1 11: Test Extinction/Inattention - No abnormality?+ 0 NIHSS Score:?10 Pre-Morbid Modified Nobles Scale:Unable to assess Spoke with :?Dr Barrera This consult was conducted in real time using interactive audio and video technology. Patient was informed of the technology being used for this visit and agreed to proceed. Patient located in hospital and provider located at home/office setting. Patient is being evaluated for possible acute neurologic impairment and high probability of imminent or life-threatening deterioration. I spent total of 44 minutes providing care to this patient, including time for face to face visit via telemedicine, review of medical records, imaging studies and discussion of findings with providers, the patient and/or family. Dr Yesi Hernandez [facility] For Inpatient follow-up with [facility] physician please call [facility] at . As we are not an outpatient service for any post hospital discharge needs please contact the hospital for assistance. If you have any questions for the [facility] physicians or need to reconsult for clinical or diagnostic changes please contact us via [facility] at .
[2024-06-24 00:34] LABS: Partial Thromboplastin Time 27.6 Seconds (22.0-36.0); Prothrombin Time 11.1 Seconds (9.0-12.2)
--- NOTE | 2024-06-24 00:58 | PC.NURSE ---
when pt returned from CT pt was given bedbath.
[2024-06-24 01:03] LABS: Alcohol, Blood Medical < 3.0 mg/dL (0-10.0)
[2024-06-24 01:22] LABS: Collection Type, Urine Voided; Squamous Epithelial Cell,Urine 0 /hpf (0-5)
[2024-06-24 01:48] LABS: Amphetamine/Methamp Scrn,U Positive (Negative); Barbiturate Screen,Urine Negative (Negative); Benzodiazepines Screen,Urine Negative (Negative); Benzoylecgonine Screen, Ur Negative (Negative); Fentanyl Screen,Urine Negative (Negative); Opiate Screen,Urine Negative (Negative); THC Screen,Urine Positive (Negative)
[2024-06-24 01:49] LABS: Bilirubin,Urine Negative (Negative); Blood,Urine Negative (Negative); Clarity,Urine Clear (Clear/Hazy); Color,Urine Lt-Yellow (Lt Yel-Yel); Glucose, Urine Negative (Negative); Ketones,Urine Negative (Negative); Leukocyte Esterase,Urine Negative (Negative); Nitrite,Urine Negative (Negative); Protein,Urine Negative (Neg - Trace); RBC,Urine 5 /hpf (0-3); Urobilinogen,Urine Negative mg/dL (0.0-1.0); WBC,Urine 1 /hpf (0-5)
--- NOTE | 2024-06-24 01:49 | PRELIM_ITS ---
CT angiogram of the head and neck with intravenous contrast (axial sections with sagittal and coronal reformats) June 23, 2024 2347 hours Clinical History: Focal neuro deficit, stroke suspected Comparison: No prior study is available for comparison. Findings: Head: The internal carotid, middle and anterior cerebral arteries are patent bilaterally. The intracranial vertebral arteries are patent. The vertebrobasilar junction, basilar and posterior cerebral arteries are patent. No evidence of large vessel occlusion, critical stenosis or aneurysm. There is anterior dislocation of bilateral temporomandibular joints. Several radicular cysts are seen in the lower mandibular teeth. Neck: The aortic arch to the extent visualized as well as the origins of the right brachiocephalic, left common carotid, and left subclavian arteries are patent. The common carotid arteries, carotid bulbs, and internal and external carotid arteries are patent. The origins of the vertebral arteries are unremarkable. The vertebral arteries are codominant. No evidence of vascular occlusion, critical stenosis, dissection or aneurysm. The soft tissues of the neck are unremarkable. The osseous structures are unremarkable. Impression: Head: No evidence of large vessel occlusion, critical stenosis or aneurysm. Neck: No evidence of vascular occlusion, critical stenosis, dissection or aneurysm. Other findings as described above. Report Electronically Signed By: Preston Mohan 06/24/2024 1:49:08 AM [EST]
--- NOTE | 2024-06-24 01:53 | PRELIM_ITS ---
CT scan of the cervical spine without intravenous contrast (axial sections with sagittal and coronal reformats). June 23, 2024 2353 hours Clinical history: 48-year-old male Comparison: No prior study is available for comparison. Findings: There is no fracture or subluxation. There is multilevel degenerative disc, uncovertebral and facet joint disease, predominantly at the C5/C6 level causing mild spinal canal and bilateral neural foraminal narrowing. The prevertebral soft tissues are unremarkable. Impression: No evidence of fracture or subluxation. Degenerative changes as described. Report Electronically Signed By: Preston Mohan 06/24/2024 1:52:15 AM [EST]
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
--- NOTE | 2024-06-24 05:07 | PC.NURSE ---
Report called to Madeleine. Pt taken to rm 262 by thanh pt on laboratory monitor.
[2024-06-24 05:42] LABS: Basophils # (Auto) 0.1 Thou/mm3 (0.0-0.2); Basophils % (Auto) 1 % (0-2.5); Eosinophils # (Auto) 0.5 Thou/mm3 (0.0-0.5); Eosinophils % (Auto) 4 % (0-10); Hemoglobin 14.8 g/dL (13.5-16.0); Immature Granulocytes % (Auto) 0 % (0-0); Immature Granulocytes Auto 0.03 Thou/mm3 (0.00-0.00); Lymphocytes # (Auto) 3.1 Thou/mm3 (1.0-4.8); Lymphocytes % (Auto) 30 % (10-50); Mean Corpuscular HGB Conc 33.6 g/dl (31.0-37.0); Mean Corpuscular Hemoglobin 28.5 pg (25.0-35.0); Mean Corpuscular Volume 85 fL (80-100); Monocytes # (Auto) 0.9 Thou/mm3 (0.0-0.8); Monocytes % (Auto) 8 % (0-12); Neutrophils % (Auto) 56 % (37-80); Nucleated Red Blood Cell % 0 /100 WBC (0); Platelet Count 312 Thou/mm3 (140-440); RDW Standard Deviation 42.5 fL (35.1-43.9); White Blood Count 10.5 Thou/mm3 (3.8-10.6)
[2024-06-24] MEDS: NICOTINE PATCH 21 MG/24 HR PATCH.TD24 TOP (05:42)
[2024-06-24 06:08] LABS: Alanine Aminotransferase 10 U/L (10-49); Albumin/Globulin Ratio 1.3 (1.2-2.2); Alkaline Phosphatase 111 U/L (46-116); Anion Gap 6 (7-16); Aspartate Amino Transferase 14 U/L (0-34); BUN/Creatinine Ratio 16 Ratio (12-20); Bilirubin,Total 0.5 mg/dL (0.3-1.2); Blood Urea Nitrogen 23 mg/dL (9-23); Calcium 9.2 mg/dL (8.3-10.6); Calcium (Corrected) 9.2 mg/dL (8.5-10.1); Carbon Dioxide 23.9 mMol/L (20.0-31.0); Chloride 111 mMol/L (98-107); Cholesterol 238 mg/dL (132-200); Creatinine (Component) 1.4 mg/dL (0.6-1.3); Glucose 107 mg/dL (74-106); HDL Cholesterol 60 mg/dL (40-60); LDL Cholesterol,Calculated 161 mg/dL (0-130); Magnesium 1.9 mg/dL (1.6-2.6); Osmolality,Calculated 284 (275-295); Potassium 3.7 mMol/L (3.4-5.1); Sodium 141 mMol/L (136-145); Triglycerides 83 mg/dL (30-150); eGFR > 60 See Note
[2024-06-24] MEDS: HEPARIN SOD INJ 5000 UNIT/ML VIAL SC ×2 (08:57→20:38)
--- NOTE | 2024-06-24 10:33 | ESPR_ITS ---
Documentation for date of: 06/24/24 Subjective Subjective Interval history: Patient seen and examined at bedside. Patient continues to have left upper, lower extremity weakness, 1/5 strength. Patient also has left-sided facial droop. Patient's labs and vitals reviewed. Patient's blood pressure is elevated, parameters for permissive hypertension discontinued. Started on amlodipine 10 mg daily, patient unable to swallow pending speech therapy evaluation Will continue blood pressure management with IV labetalol as needed SBP greater than 160/DBP greater than 100 Patient's LUIS A has improved, will continue IV LR maintenance fluids 1 L. Pending MRI, neurology recommendations and echocardiogram. Will continue to monitor Exam Vital Signs Temp Pulse Resp BP Pulse Ox O2 Del Method O2 Flow Rate 97.2 F 77 18 175/104 H 97 Room Air 2 06/24/24 08:00 06/24/24 08:00 06/24/24 08:00 06/24/24 08:00 06/24/24 08:00 06/24/24 08:00 06/24/24 02:32 Narrative Exam Physical Exam General:Awake and in no acute distress Speech is slow. Dysarthria. HEENT: Normocephalic, atraumatic, mucous membranes moist. Heart: Regular rate and rhythm, no murmurs. Lungs: Clear to auscultation with no wheezing or crackles. Abdomen: Soft, nondistended, nontender, positive bowel sounds. ?No guarding or rebound tenderness. Neurologic: Alert and oriented x3, strength in left extremities 1/5, left sided facial droop. Extremities: No edema. Skin: No rash or ecchymoses. Objective Labs 06/24/24 04:22 06/24/24 04:22 Labs: Laboratory Results - last 24 hr 06/23/24 06/24/24 06/24/24 23:36 00:29 01:00 WBC 13.6 H RBC 5.34 Hgb 15.2 Hct 45.2 MCV 85 MCH 28.5 MCHC 33.6 RDW Std Deviation 42.0 Plt Count 332 Neut % (Auto) 70 Lymph % (Auto) 20 [place] % (Auto) 7 Eos % (Auto) 3 Baso % (Auto) 0 Neut # (Auto) 9.5 H Lymph # (Auto) 2.7 [place] # (Auto) 0.9 H Eos # (Auto) 0.4 Baso # (Auto) 0.1 Immature Gran # (Auto) 0.04 H Absolute Nucleated RBC 0.00 Immature Gran % 0 Nucleated RBC % 0 PT 11.1 INR 1.0 APTT 27.6 Sodium 139 Potassium 4.0 Chloride 106 Carbon Dioxide 25.0 Anion Gap 8 BUN 24 H Creatinine 1.5 H Estim Creat Clear Calc Not Performed. eGFR 58 L BUN/Creatinine Ratio 16 Glucose 105 Calculated Osmolality 281 Lactic Acid 1.2 Calcium 9.7 Corrected Calcium 9.7 Magnesium 2.0 Total Bilirubin 0.4 AST 18 ALT 12 Alkaline Phosphatase 113 Troponin I < 0.020 Total Protein 7.5 Albumin 4.2 Globulin 3.3 Albumin/Globulin Ratio 1.3 Triglycerides Cholesterol LDL Cholesterol, Calc HDL Cholesterol Cholesterol/HDL Ratio Procalcitonin 0.10 TSH Ur Collection Type Voided Urine Color Lt-Yellow Urine Clarity Clear Urine pH 6.0 Ur Specific [place] 1.020 Urine Protein Negative Urine Glucose (UA) Negative Urine Ketones Negative Urine Blood Negative Urine Nitrite Negative Urine Bilirubin Negative Urine Urobilinogen (Auto) Negative Ur Leukocyte Esterase Negative Urine RBC 5 H Urine WBC 1 Ur Squamous Epith Cells 0 Urine Bacteria None Urine Opiates Screen Negative Urine Fentanyl Screen Negative Ur Barbiturates Screen Negative U Amphetamin/Meth Scrn Positive A U Benzodiazepines Scrn Negative U Cocaine Metab Screen Negative U Marijuana (THC) Screen Positive A Ethyl Alcohol < 3.0 06/24/24 04:22 WBC 10.5 RBC 5.20 Hgb 14.8 Hct 44.0 MCV 85 MCH 28.5 MCHC 33.6 RDW Std Deviation 42.5 Plt Count 312 Neut % (Auto) 56 Lymph % (Auto) 30 [place] % (Auto) 8 Eos % (Auto) 4 Baso % (Auto) 1 Neut # (Auto) 6.0 Lymph # (Auto) 3.1 [place] # (Auto) 0.9 H Eos # (Auto) 0.5 Baso # (Auto) 0.1 Immature Gran # (Auto) 0.03 H Absolute Nucleated RBC 0.00 Immature Gran % 0 Nucleated RBC % 0 PT INR APTT Sodium 141 Potassium 3.7 Chloride 111 H Carbon Dioxide 23.9 Anion Gap 6 L BUN 23 Creatinine 1.4 H Estim Creat Clear Calc Not Performed. eGFR > 60 BUN/Creatinine Ratio 16 Glucose 107 H Calculated Osmolality 284 Lactic Acid Calcium 9.2 Corrected Calcium 9.2 Magnesium 1.9 Total Bilirubin 0.5 AST 14 ALT 10 Alkaline Phosphatase 111 Troponin I Total Protein 7.0 Albumin 4.0 Globulin 3.0 Albumin/Globulin Ratio 1.3 Triglycerides 83 Cholesterol 238 H LDL Cholesterol, Calc 161 H HDL Cholesterol 60 Cholesterol/HDL Ratio 4.0 Procalcitonin TSH 1.70 Ur Collection Type Urine Color Urine Clarity Urine pH Ur Specific [place] Urine Protein Urine Glucose (UA) Urine Ketones Urine Blood Urine Nitrite Urine Bilirubin Urine Urobilinogen (Auto) Ur Leukocyte Esterase Urine RBC Urine WBC Ur Squamous Epith Cells Urine Bacteria Urine Opiates Screen Urine Fentanyl Screen Ur Barbiturates Screen U Amphetamin/Meth Scrn U Benzodiazepines Scrn U Cocaine Metab Screen U Marijuana (THC) Screen Ethyl Alcohol Quality Measures Quality Measures VTE prophylaxis Assessment & Plan Assessment Current Active Medications: Generic Name Dose Route Start Last Admin Trade Name Freq PRN Reason Stop Dose Admin Acetaminophen 650 mg 06/24/24 03:14 Acetaminophen 325 Mg Tablet PO 07/24/24 03:13 Q6H PRN Fever >100.3 or pain 1-3 Amlodipine Besylate 10 mg 06/24/24 09:00 Amlodipine Besylate 5 Mg Tablet PO 07/24/24 08:59 QDAY [facility] Aspirin 81 mg 06/24/24 09:00 Aspirin Ec 81 Mg Tabec PO 07/24/24 08:59 QDAY [facility] Atorvastatin Calcium 80 mg 06/24/24 21:00 Atorvastatin Calcium 20 Mg Tablet PO 07/24/24 20:59 HS [facility] Clopidogrel Bisulfate 75 mg 06/24/24 09:00 Clopidogrel Bisulfate 75 Mg Tablet PO 07/24/24 08:59 QDAY [facility] Heparin Sodium (Porcine) 5,000 unit 06/24/24 09:00 06/24/24 08:57 Heparin Sod Inj 5000 Unit/Ml Vial SC 07/08/24 08:59 5,000 unit Q12HR GUS Administration Nicotine 21 mg 06/24/24 09:00 06/24/24 07:46 Nicotine Patch 21 Mg/24 Hr Patch.Td24 TOP 07/24/24 08:59 Not Given QDAY [facility] Ondansetron HCl 4 mg 06/24/24 03:14 Ondansetron Inj 2 Mg/Ml Inj 2 Ml IV 07/24/24 03:13 Q6H PRN NAUSEA OR VOMITING Protocol Sennosides 1 tab 06/24/24 03:14 Senna Tablet PO 07/24/24 03:13 QDAY PRN constipation Protocol Plan Assessment and plan: Summary: Mr Cheek is a is a 48-year-old male with a previous medical history of hypertension, 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 Patient is going to be admitted for acute stroke workup and management. #CVA workup #History of stroke in 12/2022 #Severe left sided hemiparesis #Dysarthria History of stroke in 2022, after that he had left sided hemiparesis and was able to ambulate using cane. Patient has increased weakness with new findings as above. Imaging showed old infarcts in both basal ganglia and left occipital lobe as well as right cerebral hemisphere, negative for acute hemorrhage, mass effect or midline shift. CTA was negative for large vessel occlusion, critical stenosis or aneurysm. Cervical CT was negative for signs of fracture or subluxation. NIHSS 10. Plan: - Continue aspirin 81 mg daily and Clopidogrel 75 mg daily. - Atorvastatin 80 mg qday - Follow MRI brain - Continue telemetry monitoring - Continue neuro Checks q4hr - Patient failed bedside nurse swallow screen, pending speech therapy evaluation - Continue heparin every 12 hours for DVT prophylaxis - Head of Bed 30 Degrees - Euglycemia and Avoid Hyperthermia (PRN Acetaminophen) - Pending echocardiogram - Speech eval, PT eval - Neurologist Dr. Puckett consulted #Acute kidney injury Most likely prerenal. According to the chart review, creatinine levels are in the range of 1.2-1.4. 06/23/24 Creatinine 1.5, GFR 58, BUN 24, baseline creatinine 1.2?1.3 Plan: - LR 1 L maintenance fluids - monitor CMP - avoid nephrotoxic agents #Hypertension Patient does not report time when symptoms began. Triage note says his LKN 2200 pm. Will hold off BP management until full 24 hours (10 pm). Plan: - Resume home dose amlodipine, patient is pending speech therapy evaluation - Labetalol 10 mg every 6 hours, SBP more than 160, DBP more than 100 #Hyperlipidemia Lipid panel shows cholesterol 238, LDL 161, HDL 60, A1c from March 2024 within normal limits - Continue atorvastatin 80 mg at bedtime #Active chronic smoker #Methamphetamine dependence #THC dependence Urine tox screen positive for methamphetamine and THC Plan: -Patient advised to refrain from methamphetamine use - nicotine patch 21 mg qday - social sciences professor consult #Microscopic hematuria Patient's RBC urine 5/hpf, review of previous urine analysis shows 3 in April 2024 - Patient will need outpatient workup Health maintenance: FEN: NPO until speech eval DVT prophylaxis: heparin 5000 u sc q12hr GI prophylaxis: none Dispo: telemetry CODE STATUS: Full code Case discussed with Attending Dr. Schmidt and Dr. Hernandez PGY3. Fredo Onofre PGY1 Disclaimer: This note was dictated by speech recognition. Minor errors in hand spray operator may be present due to voice recognition software. VIJAY discussed with and supervised the buying intern physician who took care of this patient. I personally saw and examined the patient and discussed the assessment and plan with the entire medicine team, including my attending Dr. Roxana BUTT. I agree with the assessment and plan as documented above. Patient admitted overnight for symptoms of left-sided hemiparesis and left-sided facial droop needing stroke workup. MRI showed a acute 10 mm infarct in the right basal ganglia. Also showing lack of filling in the P2 and P2 segments of the left posterior cerebral artery. Currently on DAPT and statin therapy for stroke. Neuro recommendations currently pending. Patient also noted to be markedly hypertensive with blood pressure of 180/123. Started antihypertensive therapy with amlodipine 10 mg p.o. daily. Patient failed bedside nursing swallow evaluation and formal speech evaluation currently pending. Aman Hernandez M.D. Internal Medicine PGY-3 Attending Provider Attestation/Addendum Patient was seen being helped by physical therapist. Physical therapist said that he is left side weakness is more pronounced at this time compared to the previous admission. His MRI today showed acute right basal infarct. Will continue dual antiplatelet agent and statin. Continue neurochecks.
[2024-06-24] MEDS: RINGERS LACTATED 1000 ML 1,000 ML 100 ML IV (12:06)
[2024-06-24] MEDS: LABETALOL INJ 5 MG/ML VIAL 20 ML 10 MG IVP ×2 (12:07→18:02)
--- NOTE | 2024-06-24 14:46 | PC.SS ---
SS met with, pt, bedside nurse, Alycia, and mom. Per bedside nurse, Alycia PT worked with pt and they are recommending SNF. Pt and mom are agreeable to SNF. Mom states if pt can improve his attitude and behaviors pt can return home. Pt and mom are aware pt requires insurance approval for SNF short term placement. PASRR assessment has been completed.
--- NOTE | 2024-06-24 15:20 | PC.SS ---
SS met with patient and mom regarding his d/c plan.? Pt is alert/oriented.? Pt was admitted for Acute Stroke.? Pt confirmed demographic and contact information is correct on facesheet.? Pt resides with mom.? Pt ambulate using a cane and front wheel walker.? Pt is ok with all ADLs.? Mom is hesitant about pt returning home due to having attitude and verbally aggressive.? Mom and pt are aware if pt is declined for SNF other options are to return home or homeless detention.? Pt and mom are aware SNF inquiry will be sent sent out.? Pt named his mom, Lois Alcocer medical decision maker if he is unable.? Patient tox screen was positive for meth use.? SS offered pt community resources but pt declined.?? D/C plan:? Return home Next of Kin:? ?Lois Alcocer, mom, phone# [phone] PCP:? [facility] Address:? Correct on facesheet
--- NOTE | 2024-06-24 15:32 | PCS.ST ---
Assisted ENVIRONMENTAL ADVISOR patient with swallow eval.
[2024-06-24] MEDS: ASPIRIN EC 81 MG TABEC PO (16:09)
[2024-06-24] MEDS: CLOPIDOGREL BISULFATE 75 MG TABLET PO (16:09)
[2024-06-24] MEDS: amLODIPine BESYLATE 5 MG TABLET 10 MG PO (16:09)
[2024-06-24] MEDS: hydrALAZINE HCL 10 MG TABLET PO ×2 (18:08→20:38)
[2024-06-24] MEDS: ATORVASTATIN CALCIUM 20 MG TABLET 80 MG PO (20:38)
--- NOTE | 2024-06-24 22:48 | PD.NEUROPROG ---
Documentation for date of: 06/24/24 Subjective Subjective Interval history: Patient was seen in telemetry today at the bedside. Continues to have left hemiparesis affecting upper extremity more than the lower. He is tolerating oral diet well. Exam - Neurology Vital Signs Temp Pulse Resp BP Pulse Ox O2 Del Method O2 Flow Rate 97.1 F 77 18 186/104 H 95 Room Air 2 06/24/24 20:00 06/24/24 20:38 06/24/24 20:00 06/24/24 20:38 06/24/24 20:00 06/24/24 20:00 06/24/24 02:32 Narrative Exam GENERAL APPEARANCE: Well hydrated, well-nourished in no acute distress. HEENT: Normocephalic, atraumatic, extraocular movements intact. Pupils: Equal reacting to light and accommodation NECK: Supple, no JVD or bruits. CARDIOVASULAR: Heart: S1, S2 heard, regular without S3-S4 or murmur no rubs or gallops. LUNGS/CHEST: Clear to auscultation bilaterally. No rails, rhonchi, or wheezing. Normal inspection. ABDOMEN: Soft, nontender, with normal bowel sounds. No pulsatile masses. No rebound, rigidity, or guarding. Normal inspection and palpation. EXTREMITIES: Normal inspection and palpation. No edema, clubbing or cyanosis. SKIN: Warm and dry without rashes. Normal inspection. MUSCULOSKELETAL: No cervical, thoracic, lumbar or midline bony tenderness. Normal inspection. NEURO: Alert, awake and oriented x3. Cranial nerves: II through XII grossly intact. Speech and language: Normal with no dysarthria or dysphasia. Motor system: Tone and bulk: Normal: Strength: left UE> LE weakness, moves right UE an LE well. Significant left pronator drift noted. Deep tendon reflexes: 2+ bilaterally symmetrical. Plantar reflex: Downgoing bilaterally. Sensory system: Intact to all modalities of sensation bilaterally. Coordination: Intact to [id number] and [id number] test bilaterally. No ataxia, no dysmetria, or dysdiadochokinesia noted. No intention tremors noted. Gait: could not be tested sec. to weakness. No signs of meningeal irritation noted. PSYCHIATRIC: Normal mood and affect. Objective Labs 06/25/24 05:38 06/25/24 05:38 Labs: Laboratory Results - last 24 hr 06/23/24 06/24/24 06/24/24 23:36 00:29 01:00 WBC 13.6 H RBC 5.34 Hgb 15.2 Hct 45.2 MCV 85 MCH 28.5 MCHC 33.6 RDW Std Deviation 42.0 Plt Count 332 Neut % (Auto) 70 Lymph % (Auto) 20 [place] % (Auto) 7 Eos % (Auto) 3 Baso % (Auto) 0 Neut # (Auto) 9.5 H Lymph # (Auto) 2.7 [place] # (Auto) 0.9 H Eos # (Auto) 0.4 Baso # (Auto) 0.1 Immature Gran # (Auto) 0.04 H Absolute Nucleated RBC 0.00 Immature Gran % 0 Nucleated RBC % 0 PT 11.1 INR 1.0 APTT 27.6 Sodium 139 Potassium 4.0 Chloride 106 Carbon Dioxide 25.0 Anion Gap 8 BUN 24 H Creatinine 1.5 H Estim Creat Clear Calc Not Performed. eGFR 58 L BUN/Creatinine Ratio 16 Glucose 105 Calculated Osmolality 281 Lactic Acid 1.2 Calcium 9.7 Corrected Calcium 9.7 Magnesium 2.0 Total Bilirubin 0.4 AST 18 ALT 12 Alkaline Phosphatase 113 Troponin I < 0.020 Total Protein 7.5 Albumin 4.2 Globulin 3.3 Albumin/Globulin Ratio 1.3 Triglycerides Cholesterol LDL Cholesterol, Calc HDL Cholesterol Cholesterol/HDL Ratio Procalcitonin 0.10 TSH Ur Collection Type Voided Urine Color Lt-Yellow Urine Clarity Clear Urine pH 6.0 Ur Specific [place] 1.020 Urine Protein Negative Urine Glucose (UA) Negative Urine Ketones Negative Urine Blood Negative Urine Nitrite Negative Urine Bilirubin Negative Urine Urobilinogen (Auto) Negative Ur Leukocyte Esterase Negative Urine RBC 5 H Urine WBC 1 Ur Squamous Epith Cells 0 Urine Bacteria None Urine Opiates Screen Negative Urine Fentanyl Screen Negative Ur Barbiturates Screen Negative U Amphetamin/Meth Scrn Positive A U Benzodiazepines Scrn Negative U Cocaine Metab Screen Negative U Marijuana (THC) Screen Positive A Ethyl Alcohol < 3.0 06/24/24 04:22 WBC 10.5 RBC 5.20 Hgb 14.8 Hct 44.0 MCV 85 MCH 28.5 MCHC 33.6 RDW Std Deviation 42.5 Plt Count 312 Neut % (Auto) 56 Lymph % (Auto) 30 [place] % (Auto) 8 Eos % (Auto) 4 Baso % (Auto) 1 Neut # (Auto) 6.0 Lymph # (Auto) 3.1 [place] # (Auto) 0.9 H Eos # (Auto) 0.5 Baso # (Auto) 0.1 Immature Gran # (Auto) 0.03 H Absolute Nucleated RBC 0.00 Immature Gran % 0 Nucleated RBC % 0 PT INR APTT Sodium 141 Potassium 3.7 Chloride 111 H Carbon Dioxide 23.9 Anion Gap 6 L BUN 23 Creatinine 1.4 H Estim Creat Clear Calc Not Performed. eGFR > 60 BUN/Creatinine Ratio 16 Glucose 107 H Calculated Osmolality 284 Lactic Acid Calcium 9.2 Corrected Calcium 9.2 Magnesium 1.9 Total Bilirubin 0.5 AST 14 ALT 10 Alkaline Phosphatase 111 Troponin I Total Protein 7.0 Albumin 4.0 Globulin 3.0 Albumin/Globulin Ratio 1.3 Triglycerides 83 Cholesterol 238 H LDL Cholesterol, Calc 161 H HDL Cholesterol 60 Cholesterol/HDL Ratio 4.0 Procalcitonin TSH 1.70 Ur Collection Type Urine Color Urine Clarity Urine pH Ur Specific [place] Urine Protein Urine Glucose (UA) Urine Ketones Urine Blood Urine Nitrite Urine Bilirubin Urine Urobilinogen (Auto) Ur Leukocyte Esterase Urine RBC Urine WBC Ur Squamous Epith Cells Urine Bacteria Urine Opiates Screen Urine Fentanyl Screen Ur Barbiturates Screen U Amphetamin/Meth Scrn U Benzodiazepines Scrn U Cocaine Metab Screen U Marijuana (THC) Screen Ethyl Alcohol Assessment & Plan Assessment and plan (1) Acute CVA (cerebrovascular accident): Status: Acute Assessment and plan: Based on the MRI brain with small acute infarct in the right basal ganglia Increased signal changes in FLAIR sequence is suspicious for multiple sclerosis, patient underwent lumbar puncture last visit but the CSF analysis showed no oligoclonal bands with elevated IgG index. Not consistent with multiple sclerosis. MRA findings with intracranial stenosis. This could have been related to longstanding uncontrolled hypertension and drug usage. Continue Plavix along with aspirin with statin for prophylaxis. Continue with physical therapy and Occupational Therapy. He would need inpatient rehab. (2) Essential hypertension: Status: Chronic Assessment and plan: Uncontrolled secondary to noncompliance. Continue with current antihypertensives for aggressive blood pressure management.
[2024-06-25] VITALS (16 sets, daily range): BP systolic 149–184; BP diastolic 96–120; PULSE 64–96; RESP 16–98; TEMP 36.1–36.6; O2SAT 93–99; BMI 12.0
[2024-06-25] MEDS: LABETALOL INJ 5 MG/ML VIAL 20 ML 10 MG IVP ×3 (00:42→18:11)
[2024-06-25] MEDS: hydrALAZINE HCL 10 MG TABLET PO (05:06)
[2024-06-25 05:47] LABS: Basophils # (Auto) 0.1 Thou/mm3 (0.0-0.2); Basophils % (Auto) 1 % (0-2.5); Eosinophils # (Auto) 0.4 Thou/mm3 (0.0-0.5); Eosinophils % (Auto) 5 % (0-10); Hematocrit 45.1 % (41.0-53.0); Hemoglobin 14.7 g/dL (13.5-16.0); Immature Granulocytes % (Auto) 0 % (0-0); Immature Granulocytes Auto 0.03 Thou/mm3 (0.00-0.00); Lymphocytes # (Auto) 2.7 Thou/mm3 (1.0-4.8); Lymphocytes % (Auto) 29 % (10-50); Mean Corpuscular HGB Conc 32.6 g/dl (31.0-37.0); Mean Corpuscular Hemoglobin 28.3 pg (25.0-35.0); Mean Corpuscular Volume 87 fL (80-100); Monocytes # (Auto) 0.7 Thou/mm3 (0.0-0.8); Monocytes % (Auto) 8 % (0-12); Neutrophils # (Auto) 5.4 Thou/mm3 (1.8-7.7); Neutrophils % (Auto) 58 % (37-80); Nucleated Red Blood Cell % 0 /100 WBC (0); Platelet Count 291 Thou/mm3 (140-440); RDW Standard Deviation 43.7 fL (35.1-43.9); White Blood Count 9.4 Thou/mm3 (3.8-10.6)
[2024-06-25 06:27] LABS: Alanine Aminotransferase 9 U/L (10-49); Albumin, Serum 4.1 gm/dL (3.5-5.0); Albumin/Globulin Ratio 1.4 (1.2-2.2); Alkaline Phosphatase 115 U/L (46-116); Anion Gap 8 (7-16); Aspartate Amino Transferase 15 U/L (0-34); BUN/Creatinine Ratio 13 Ratio (12-20); Bilirubin,Total 0.8 mg/dL (0.3-1.2); Blood Urea Nitrogen 17 mg/dL (9-23); Calcium 9.4 mg/dL (8.3-10.6); Calcium (Corrected) 9.4 mg/dL (8.5-10.1); Carbon Dioxide 26.5 mMol/L (20.0-31.0); Chloride 109 mMol/L (98-107); Creatinine (Component) 1.3 mg/dL (0.6-1.3); Glucose 119 mg/dL (74-106); Magnesium 1.9 mg/dL (1.6-2.6); Osmolality,Calculated 287 (275-295); Phosphorous 3.5 mg/dL (2.4-5.1); Potassium 3.7 mMol/L (3.4-5.1); Sodium 143 mMol/L (136-145); Total Protein 7.1 gm/dL (5.7-8.2); eGFR > 60 See Note
--- NOTE | 2024-06-25 09:41 | PC.SS ---
SS met with pt to provide him with SNF choices (upon his request) to [facility] or [facility]. [facility] and [facility] declined. [facility] did not respond on [facility]. Patient's choice is [facility]. SS has spoke to Haleigh at [facility] who is aware pt has accepted and they will start insurance authorization. PASRR assessment and PT notes have been sent on [facility], per Haleigh's request. Stroke assessment was completed.
[2024-06-25] MEDS: CLOPIDOGREL BISULFATE 75 MG TABLET PO (09:57)
[2024-06-25] MEDS: ASPIRIN EC 81 MG TABEC PO (09:57)
[2024-06-25] MEDS: HEPARIN SOD INJ 5000 UNIT/ML VIAL SC ×2 (09:59→21:37)
[2024-06-25] MEDS: NICOTINE PATCH 21 MG/24 HR PATCH.TD24 TOP (09:59)
[2024-06-25] MEDS: amLODIPine BESYLATE 5 MG TABLET 10 MG PO (10:01)
--- NOTE | 2024-06-25 14:23 | PD.RESPRO ---
Documentation for date of: 06/25/24 Subjective Subjective Interval history: Patient seen and examined at bedside. Patient continues to have left-sided weakness. Patient's blood pressure medication hydralazine uptitrated to 25 three times daily Patient's MRI was positive for acute infarct right basal ganglia. Patient is pending echocardiogram. Physical therapy recommends long term facility placement. Anticipate discharge in the next 24 hours to SNF for physical therapy. Exam Vital Signs Temp Pulse Resp BP Pulse Ox O2 Del Method O2 Flow Rate 97.3 F 88 18 173/117 H 99 Room Air 2 06/25/24 12:00 06/25/24 12:00 06/25/24 12:00 06/25/24 12:00 06/25/24 12:00 06/25/24 12:00 06/24/24 02:32 Narrative Exam Physical Exam General:Awake and in no acute distress Speech is slow. Dysarthria. HEENT: Normocephalic, atraumatic, mucous membranes moist. Heart: Regular rate and rhythm, no murmurs. Lungs: Clear to auscultation with no wheezing or crackles. Abdomen: Soft, nondistended, nontender, positive bowel sounds. ?No guarding or rebound tenderness. Neurologic: Alert and oriented x3, strength in left extremities 1/5, left sided facial droop. Extremities: No edema. Skin: No rash or ecchymoses. Objective Labs 06/26/24 05:25 06/26/24 05:25 Labs: Laboratory Results - last 24 hr 06/25/24 05:38 WBC 9.4 RBC 5.20 Hgb 14.7 Hct 45.1 MCV 87 MCH 28.3 MCHC 32.6 RDW Std Deviation 43.7 Plt Count 291 Neut % (Auto) 58 Lymph % (Auto) 29 Saline % (Auto) 8 Eos % (Auto) 5 Baso % (Auto) 1 Neut # (Auto) 5.4 Lymph # (Auto) 2.7 Saline # (Auto) 0.7 Eos # (Auto) 0.4 Baso # (Auto) 0.1 Immature Gran # (Auto) 0.03 H Absolute Nucleated RBC 0.00 Immature Gran % 0 Nucleated RBC % 0 Sodium 143 Potassium 3.7 Chloride 109 H Carbon Dioxide 26.5 Anion Gap 8 BUN 17 Creatinine 1.3 Estim Creat Clear Calc Not Performed. eGFR > 60 BUN/Creatinine Ratio 13 Glucose 119 H Calculated Osmolality 287 Calcium 9.4 Corrected Calcium 9.4 Phosphorus 3.5 Magnesium 1.9 Total Bilirubin 0.8 AST 15 ALT 9 L Alkaline Phosphatase 115 Total Protein 7.1 Albumin 4.1 Globulin 3.0 Albumin/Globulin Ratio 1.4 Quality Measures Quality Measures VTE prophylaxis Assessment & Plan Assessment Current Active Medications: Generic Name Dose Route Start Last Admin Trade Name Freq PRN Reason Stop Dose Admin Acetaminophen 650 mg 06/24/24 03:14 Acetaminophen 325 Mg Tablet PO 07/24/24 03:13 Q6H PRN Fever >100.3 or pain 1-3 Amlodipine Besylate 10 mg 06/24/24 09:00 06/25/24 10:01 Amlodipine Besylate 5 Mg Tablet PO 07/24/24 08:59 10 mg QDAY GUS Administration Aspirin 81 mg 06/24/24 09:00 06/25/24 09:57 Aspirin Ec 81 Mg Tabec PO 07/24/24 08:59 81 mg QDAY GUS Administration Atorvastatin Calcium 80 mg 06/24/24 21:00 06/24/24 20:38 Atorvastatin Calcium 20 Mg Tablet PO 07/24/24 20:59 80 mg HS GUS Administration Clopidogrel Bisulfate 75 mg 06/24/24 09:00 06/25/24 09:57 Clopidogrel Bisulfate 75 Mg Tablet PO 07/24/24 08:59 75 mg QDAY GUS Administration Heparin Sodium (Porcine) 5,000 unit 06/24/24 09:00 06/25/24 09:59 Heparin Sod Inj 5000 Unit/Ml Vial SC 07/08/24 08:59 5,000 unit Q12HR GUS Administration Hydralazine HCl 25 mg 06/25/24 14:00 Hydralazine Hcl 25 Mg Tablet PO 07/25/24 13:59 TID GUS Lactated Ringer's 1,000 mls @ 100 mls/hr 06/24/24 11:26 06/24/24 22:43 Lactated Ringers IV Infused .Q10H GUS Infusion Labetalol HCl 10 mg 06/24/24 10:33 06/25/24 08:10 Labetalol Inj 5 Mg/Ml Vial 20 Ml IVP 07/24/24 03:40 10 mg Q6H PRN Administration SBP >160, DBP >100 Nicotine 21 mg 06/24/24 09:00 06/25/24 09:59 Nicotine Patch 21 Mg/24 Hr Patch.Td24 TOP 07/24/24 08:59 21 mg QDAY GUS Administration Ondansetron HCl 4 mg 06/24/24 03:14 Ondansetron Inj 2 Mg/Ml Inj 2 Ml IV 07/24/24 03:13 Q6H PRN NAUSEA OR VOMITING Protocol Sennosides 1 tab 06/24/24 03:14 Senna Tablet PO 07/24/24 03:13 QDAY PRN constipation Protocol Plan Assessment and plan: Summary: Mr Cheek is a is a 48-year-old male with a previous medical history of hypertension, 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 Patient is going to be admitted for acute stroke workup and management. #Acute infarct right basal ganglia #History of stroke in 12/2022 #Severe left sided hemiparesis #Dysarthria History of stroke in 2022, after that he had left sided hemiparesis and was able to ambulate using cane. Patient has increased weakness with new findings as above. Imaging showed old infarcts in both basal ganglia and left occipital lobe as well as right cerebral hemisphere, negative for acute hemorrhage, mass effect or midline shift. CTA was negative for large vessel occlusion, critical stenosis or aneurysm. Cervical CT was negative for signs of fracture or subluxation. NIHSS 10. MRI shows 10 mm acute infarct right basal ganglia, Lack of filling P2 and P2 segments left posterior cerebral artery Speech therapist recommended dysphagia 1 diet, physicaltherapist recommends long term facility placement for daily PT Plan: - Continue aspirin 81 mg daily and Clopidogrel 75 mg daily. - Atorvastatin 80 mg qday - Continue telemetry monitoring - Continue neuro Checks q4hr - Continue heparin every 12 hours for DVT prophylaxis - Head of Bed 30 Degrees - Euglycemia and Avoid Hyperthermia (PRN Acetaminophen) - Pending echocardiogram - Neurologist Dr. Puckett consulted #Acute kidney injury, resolved Most likely prerenal. According to the chart review, creatinine levels are in the range of 1.2-1.4. 06/23/24 Creatinine 1.5, GFR 58, BUN 24, baseline creatinine 1.2?1.3 Plan: - monitor CMP - avoid nephrotoxic agents #Hypertension Patient does not report time when symptoms began. Triage note says his LKN 2200 pm. Will hold off BP management until full 24 hours (10 pm). Plan: - Continue amlodipine 10 mg daily - Started on hydralazine 25 mg 3 times daily - Labetalol 10 mg every 6 hours, SBP more than 160, DBP more than 100 #Hyperlipidemia Lipid panel shows cholesterol 238, LDL 161, HDL 60, A1c from March 2024 within normal limits - Continue atorvastatin 80 mg at bedtime #Active chronic smoker #Methamphetamine dependence #THC dependence Urine tox screen positive for methamphetamine and THC Plan: -Patient advised to refrain from methamphetamine use - nicotine patch 21 mg qday - social problems specialist consult #Microscopic hematuria Patient's RBC urine 5/hpf, review of previous urine analysis shows 3 in April 2024 - Patient will need outpatient workup Health maintenance: FEN: Dysphagia diet 1 DVT prophylaxis: heparin 5000 u sc q12hr GI prophylaxis: none Dispo: telemetry CODE STATUS: Full code Case discussed with Attending Dr. Johnston and Dr. Hernandez PGY3. Fredo Onofre PGY1 Disclaimer: This note was dictated by speech recognition. Minor errors in clay dry press mixer operator may be present due to voice recognition software. I discussed with and supervised the manager of internal physician who took care of this patient. I personally saw and examined the patient and discussed the assessment and plan with the entire medicine team, including my attending Dr. Preston BUTT. I agree with the assessment and plan as documented above. Patient interviewed and examined at bedside this a.m. No acute overnight events reported. Patient has left-sided Sajan paresis. Patient's blood pressure was elevated this a.m. for which we increased p.o. hydralazine to 25 mg 3 times a day. MRI was positive for an acute CVA in the right basal ganglia. Patient's stroke workup is only pending a transthoracic echo at this time. Patient also needing prior Auth for SNF placement. Anticipate the patient to be discharged in the next 24 to 48 hours. As patient was meth positive and marijuana positive on U tox during this admission, counseled the patient extensively on abstinence from these substances due to increased risk of future strokes. #Basal Ganglia Stroke, right sided -DAPT, atorvastatin high intensity -Neurology consulted -PT #LUIS A- resolved #HTN- AMlodipine 10 mg QD, Hydralazine 25 mg TID, PRN labetolol #HLD- High intensity statin #Substance use disorder(Marijuana &Methamphetamine) - counseled on abstinence Aman Hernandez M.D. Internal Medicine PGY-3 Attending Provider Attestation/Addendum I have examined the patient, reviewed labs and imaging findings, discussed the case with the resident(s), and reviewed entered orders. I agree with the plan of care as outlined in this note, with these additional summaries/recommendations: Patient seen at bedside. No acute overnight events. Patient continues to have left-sided hemiparesis. Patient diagnosed with acute CVA. Brain MRI revealed 10 mm acute infract right basal cannula and lack of filling P2 and P2 segments left posterior cerebral artery. In-house neurology following, patient on DAPT. Pending echocardiogram and SNF placement. Continue high intensity statin. LDL 161. Patient was counseled on substance abuse cessation. Dr. Preston MD
[2024-06-25] MEDS: hydrALAZINE HCL 25 MG TABLET PO ×2 (14:31→21:36)
[2024-06-25] MEDS: ATORVASTATIN CALCIUM 20 MG TABLET 80 MG PO (21:36)
[2024-06-25] MEDS: MELATONIN 3 MG TABLET PO (21:36)
--- NOTE | 2024-06-25 22:21 | PD.VPROG1 ---
Telemedicine visit statement This visit was conducted with the use of phone visit was obtained on 06/25/24. Documentation for date of: 06/25/24 Subjective Subjective Interval history: Patient is in telemetry. Continues to have a left hemiparesis. Physical therapy evaluated him and recommended inpatient rehab Virtual exam Vital Signs Temp Pulse Resp BP Pulse Ox O2 Del Method O2 Flow Rate 97.0 F 65 20 155/110 H 96 Room Air 2 06/25/24 20:00 06/25/24 21:36 06/25/24 20:53 06/25/24 21:36 06/25/24 20:00 06/25/24 20:00 06/24/24 02:32 Objective Labs 06/25/24 05:38 06/25/24 05:38 Labs: Laboratory Results - last 24 hr 06/25/24 05:38 WBC 9.4 RBC 5.20 Hgb 14.7 Hct 45.1 MCV 87 MCH 28.3 MCHC 32.6 RDW Std Deviation 43.7 Plt Count 291 Neut % (Auto) 58 Lymph % (Auto) 29 [place] % (Auto) 8 Eos % (Auto) 5 Baso % (Auto) 1 Neut # (Auto) 5.4 Lymph # (Auto) 2.7 [place] # (Auto) 0.7 Eos # (Auto) 0.4 Baso # (Auto) 0.1 Immature Gran # (Auto) 0.03 H Absolute Nucleated RBC 0.00 Immature Gran % 0 Nucleated RBC % 0 Sodium 143 Potassium 3.7 Chloride 109 H Carbon Dioxide 26.5 Anion Gap 8 BUN 17 Creatinine 1.3 Estim Creat Clear Calc Not Performed. eGFR > 60 BUN/Creatinine Ratio 13 Glucose 119 H Calculated Osmolality 287 Calcium 9.4 Corrected Calcium 9.4 Phosphorus 3.5 Magnesium 1.9 Total Bilirubin 0.8 AST 15 ALT 9 L Alkaline Phosphatase 115 Total Protein 7.1 Albumin 4.1 Globulin 3.0 Albumin/Globulin Ratio 1.4 Assessment & Plan Assessment 1) Acute CVA (cerebrovascular accident): Based on the MRI brain with small acute infarct in the right parietal area. Increased signal changes in FLAIR sequence is suspicious for multiple sclerosis, sent the CSF for MS panel. MRA findings with intracranial stenosis. This could have been related to longstanding uncontrolled hypertension and drug usage. Continue Plavix along with aspirin with statin for prophylaxis. Follow-up with the echocardiogram. Patient needs inpatient rehab. 2) HTN: Hydralazine was increased to 25 mg 3 times a day for better control of blood pressure. Drug abuse:3) advised him about the importance of drug cessation to prevent further massive strokes in the future
[2024-06-26] VITALS (16 sets, daily range): BP systolic 133–169; BP diastolic 88–114; PULSE 62–102; RESP 14–98; TEMP 36–36.2; O2SAT 92–98; BMI 30.1; BMI 12.0
--- NOTE | 2024-06-26 03:17 | ECHO_ITS ---
Transthoracic Echo Report Ht (in): 74 Wt (lb): 225 Exam Location: Portable Status: Inpatient Zinc Chloride Operator: SHALOM Causey^^^^ Indications: Procedure Performed: BP: / HR: 77 Technical Quality: Fair MEASUREMENTS (Male / Female) Normal Values 2D ECHO LV Diastolic Diameter PLAX 5.1 cm 4.2 - 5.9 / 3.9 - 5.3 cm LV Systolic Diameter PLAX 3.5 cm IVS Diastolic Thickness 1.2 cm 0.6 - 1.0 / 0.6 - 0.9 cm LVPW Diastolic Thickness 1.1 cm 0.6 - 1.0 / 0.6 - 0.9 cm LV Relative Wall Thickness 0.5 LVOT Diameter 1.9 cm Aortic Root Diameter 3.1 cm LA Systolic Diameter LX 3.7 cm 3.0 - 4.0 / 2.7 - 3.8 cm LA Volume Index 33.0 cm?/m? 16 - 28 cm?/m? Ascending Aorta Diameter 3.5 cm DOPPLER AV Peak Velocity 133.0 cm/s AV Peak Gradient 7.1 mmHg AV Mean Gradient 4.0 mmHg AV Velocity Time Integral 28.9 cm LVOT Peak Velocity 115.0 cm/s LVOT Peak Gradient 5.3 mmHg LVOT Velocity Time Integral 22.9 cm LVOT Cardiac Index 2148.6 cm?/min?m? AV Area Cont Eq vti 2.2 cm? AV Area Cont Eq pk 2.5 cm? MV Peak Velocity 83.2 cm/s MV Peak Gradient 2.8 mmHg MV Mean Velocity 53.3 cm/s MV Mean Gradient 1.0 mmHg MV Area PHT 4.1 cm? Mitral E Point Velocity 58.3 cm/s Mitral A Point Velocity 88.7 cm/s Mitral E to A Ratio 0.7 PV Peak Velocity 78.9 cm/s PV Peak Gradient 2.5 mmHg RVOT Peak Velocity 60.6 cm/s FINDINGS Left Ventricle Normal left ventricular size, wall thickness, systolic function with no obvious regional wall motion abnormalities. There is grade I diastolic dysfunction of the left ventricle (impaired relaxation pattern). The left ventricular ejection fraction is normal, estimated at 60-65%. Right Ventricle The right ventricle is normal in size and systolic function. The estimated right ventricular systolic pressure, 20 mmHg. Left Atrium The left atrium is normal by two-dimensional, color flow and Doppler imaging with no structural abnormalities, no thrombus formation present. Right Atrium The right atrium is normal by two-dimensional imaging, color flow and Doppler imaging with no structural abnormalities, no thrombus formation present. Atrial Septum The interatrial septum is normal to color flow Doppler and agitated saline imaging. Aorta The aorta is normal by two-dimensional, color flow and Doppler interrogation. Mitral Valve Trace to mild mitral regurgitation. Aortic Valve The aortic valve is trileaflet and normal to two-dimensional, color flow and Doppler interrogation. Tricuspid Valve There is trace tricuspid valve regurgitation. Pulmonic Valve Mild pulmonic valve regurgitation. Vessels The pulmonary artery appears normal. The inferior vena cava pulmonary and hepatic veins appear normal. Pericardium The pericardium is normal by two-dimensional imaging. There is no significant pericardial effusion. CONCLUSIONS Indication: CVA, bubble study. Bubble study negative for any PFO or ASD part TTE is suboptimal. Consider MAREK if high index of clinical suspicion. Normal LV size and function with an estimated EF of 60 to 65%. Stage I diastolic dysfunction. Normal RV size and function with normal estimated RVSP at 25 mmHg. Trace MR and TR. Mild PI. No pericardial effusion. Rupesh Ospina (Electronically Signed) Final Date: 26 June 2024 18:30
[2024-06-26] MEDS: hydrALAZINE HCL 25 MG TABLET PO ×3 (05:08→18:14)
[2024-06-26 06:01] LABS: Basophils % (Auto) 0 % (0-2.5); Eosinophils # (Auto) 0.3 Thou/mm3 (0.0-0.5); Eosinophils % (Auto) 3 % (0-10); Hemoglobin 14.4 g/dL (13.5-16.0); Immature Granulocytes % (Auto) 0 % (0-0); Immature Granulocytes Auto 0.03 Thou/mm3 (0.00-0.00); Lymphocytes # (Auto) 2.7 Thou/mm3 (1.0-4.8); Lymphocytes % (Auto) 27 % (10-50); Mean Corpuscular HGB Conc 33.5 g/dl (31.0-37.0); Mean Corpuscular Hemoglobin 28.1 pg (25.0-35.0); Mean Corpuscular Volume 84 fL (80-100); Monocytes # (Auto) 0.7 Thou/mm3 (0.0-0.8); Monocytes % (Auto) 7 % (0-12); Neutrophils # (Auto) 6.2 Thou/mm3 (1.8-7.7); Neutrophils % (Auto) 63 % (37-80); Nucleated Red Blood Cell % 0 /100 WBC (0); Platelet Count 280 Thou/mm3 (140-440); RDW Standard Deviation 42.2 fL (35.1-43.9); Red Blood Count 5.12 Miln/mm3 (4.50-5.90)
[2024-06-26 06:43] LABS: Alanine Aminotransferase 9 U/L (10-49); Albumin/Globulin Ratio 1.3 (1.2-2.2); Alkaline Phosphatase 114 U/L (46-116); Anion Gap 7 (7-16); Aspartate Amino Transferase 16 U/L (0-34); BUN/Creatinine Ratio 13 Ratio (12-20); Bilirubin,Total 0.9 mg/dL (0.3-1.2); Blood Urea Nitrogen 17 mg/dL (9-23); Calcium 9.2 mg/dL (8.3-10.6); Calcium (Corrected) 9.2 mg/dL (8.5-10.1); Carbon Dioxide 26.1 mMol/L (20.0-31.0); Chloride 108 mMol/L (98-107); Creatinine (Component) 1.3 mg/dL (0.6-1.3); Glucose 110 mg/dL (74-106); Magnesium 1.9 mg/dL (1.6-2.6); Osmolality,Calculated 283 (275-295); Phosphorous 3.4 mg/dL (2.4-5.1); Potassium 3.8 mMol/L (3.4-5.1); Sodium 141 mMol/L (136-145); eGFR > 60 See Note
[2024-06-26] MEDS: CLOPIDOGREL BISULFATE 75 MG TABLET PO (08:45)
[2024-06-26] MEDS: ASPIRIN EC 81 MG TABEC PO (08:45)
[2024-06-26] MEDS: LOSARTAN POTASSIUM 25 MG TABLET 50 MG PO (08:46)
[2024-06-26] MEDS: amLODIPine BESYLATE 5 MG TABLET 10 MG PO (08:47)
[2024-06-26] MEDS: HEPARIN SOD INJ 5000 UNIT/ML VIAL SC ×2 (08:48→20:03)
[2024-06-26] MEDS: NICOTINE PATCH 21 MG/24 HR PATCH.TD24 TOP (08:48)
--- NOTE | 2024-06-26 09:26 | PC.SS ---
Follow up note: ECHO pending. SS followed up with Evelina in admissions at [facility] who explained she follow up with insurance authorization.
[2024-06-26] MEDS: LABETALOL INJ 5 MG/ML VIAL 20 ML 10 MG IVP ×2 (10:03→17:31)
--- NOTE | 2024-06-26 14:20 | ESDS_ITS ---
Planned Discharge Date 06/26/24 DS: Providers Provider Date of admission: 06/24/24 03:15 Primary care physician: Physician No Primary/Family Admitting Provider: Shant Murillo MD Attending Provider on Admission: Sabas Johnston MD Consults: 06/23/24 23:38 Consult to Neurology / Tele-Neurology Routine Comment: Consulting Provider: [facility] 06/24/24 03:19 Consult to Neurology / Tele-Neurology Stat Comment: acute stroke Consulting Provider: Petros Puckett Referral Physical Therapy Routine Comment: Physician Instructions: Referral Speech Therapy Stat Comment: 06/24/24 14:52 Referral - HEALTH COORDINATOR Field Education Director Routine Comment: munira Ingram Attending Provider on DC: Sabas Johnston MD Discharging Provider: Sabas Johnston MD Anticipated date of discharge: 06/26/24 DS: Diagnosis Problem List Completed Was Problem List Reviewed/Reconciled?: Yes Hospital Course Hospital Course Hospital course: Hospital course: Mr. Cheek is a 48-year-old male with past medical history of hypertension, CVA with left-sided hemiparesis, methamphetamine use, medication noncompliance who was brought in by ambulance due to multiple falls, increased left-sided weakness, left-sided facial droop, slurred speech. Patient was admitted for CVA workup. Patient CT scan of the head was negative, CTA negative and cervical CT was negative as well, NIHSS 10 on presentation. Patient's MRI showed 10 mm acute infarct right basal ganglia, Lack of filling P2 and P2 segments left posterior cerebral artery. Patient was started on aspirin and Plavix, neurology was consulted. Patient was found to have hyperlipidemia and was started on atorvastatin. Patient was given IV fluids, LUIS A resolved. Patient's blood pressure managed with amlodipine hydralazine and losartan. Patient had echocardiogram taken, pending final read. Further plan is to discharge patient to longterm facility per physical therapy recom mendations for physical therapy and follow-up with primary care physician in 1 to 2 weeks. Patient to continue antihypertensive medications and uptitrate to achieve better blood pressure control. Patient to continue atorvastatin daily to achieve LDL goals for stroke. Patient advised to quit smoking and methamphetamine, verbalized understanding. Patient to follow-up outpatient for microscopic hematuria. Patient is stable for discharge to SNF, patient responded well to hospital treatment. Discharge diagnosis: #Acute infarct right basal ganglia #History of stroke in 12/2022 #Severe left sided hemiparesis #Dysarthria #Acute kidney injury, resolved #Hypertension #Hyperlipidemia #Active chronic smoker #Methamphetamine dependence #THC dependence #Microscopic hematuria Case discussed with Attending Dr. Johnston and Dr. Hernandez PGY3. Fredoterry Onofre PGY1 Disclaimer: This note was dictated by speech recognition. Minor errors in hydroponics grower may be present due to voice recognition software. I discussed with and supervised the international organizer physician who took care of this patient. I personally saw and examined the patient and discussed the assessment and plan with the entire medicine team, including my attending Dr. Preston BUTT. I agree with the assessment and plan as documented above. Aman Hernandez M.D. Internal Medicine PGY-3 Time Spent with Patient Time attestation: Total time spent providing and/or coordinating discharge services: Time spent: Greater than 30 minutes Quality: Stroke Pt Provided Written Stroke Discharge Instructions: Yes Exam Vital Signs Temp Pulse Resp BP Pulse Ox O2 Del Method O2 Flow Rate 97.2 F 75 19 133/91 H 98 Room Air 2 06/26/24 12:00 06/26/24 13:40 06/26/24 12:00 06/26/24 13:40 06/26/24 12:00 06/26/24 12:00 06/24/24 02:32 Narrative Exam Physical Exam General:Awake and in no acute distress Speech is slow. Dysarthria. HEENT: Normocephalic, atraumatic, mucous membranes moist. Heart: Regular rate and rhythm, no murmurs. Lungs: Clear to auscultation with no wheezing or crackles. Abdomen: Soft, nondistended, nontender, positive bowel sounds. ?No guarding or rebound tenderness. Neurologic: Alert and oriented x3, strength in left extremities 1/5, left sided facial droop. Extremities: No edema. Skin: No rash or ecchymoses. Discharge Plan Plan Patient Disposition: Xfer Skilled Nsg Fac (SNF) Patient condition on transfer: Stable Prescriptions/Referrals Prescriptions/Med Rec: New atorvastatin 20 mg Tablet 80 mg PO HS 30 Days Qty: 120 0RF clopidogrel 75 mg Tablet 75 mg PO QDAY 30 Days Qty: 30 0RF amlodipine 5 mg Tablet 10 mg PO QDAY 30 Days Qty: 60 0RF aspirin [Ecotrin Low Strength] 81 mg Tablet,Delayed Release (Dr/Ec) 81 mg PO QDAY 30 Days Qty: 30 0RF losartan 25 mg Tablet 50 mg PO QDAY 30 Days Qty: 60 0RF nicotine 21 mg/24 hr Patch 24 Hour 21 mg top QDAY 7 Days Qty: 7 0RF hydralazine 50 mg tablet 50 mg PO TID 30 Days Qty: 90 0RF Referrals: No Primary/Family,Physician [Primary Care Provider] - Petros Puckett MD [Physician] - Patient/Caregiver Discharge Instructions Discharge Activity: as per physical therapy Other Discharge Activity Instructions:: Continue aspirin and Plavix daily. Continue amlodipine 10 mg, losartan 50 mg and hydralazine 50 mg three times a day for blood pressure control. Optimize medications with primary care physician outpatient. Continue atorvastatin 80 mg at bedtime daily for hyperlipidemia. Use nicotine patches 21 mg daily for 7 days, switch to 14 mg and then eventually 7 mg over the next month. Stop smoking and methamphetamine use. Follow-up with primary care physician in 1 to 2 weeks. Follow-up with neurology outpatient. Return to emergency department if symptoms recur. Other Discharge Diet Instructions: Cardiac diet Education Materials: Hypertension Stroke Link, Discharge Instructions for Stroke, Risk Factors for Stroke, Eating Heart-Healthy Foods Print Language: Russian Stand Alone Forms: Cynthia Award Info., Patient Portal Info Letter Discharge Order Discharge Orders: Discharge (Routine); Ordered 06/26/24 Ordered By: Fredo Onofre Quality Discharge Quality Measures VTE prophylaxis Attestestation Attestation I have examined the patient, reviewed labs and imaging findings, discussed the case with the resident(s), and reviewed entered orders. I agree with the plan of care as outlined in this note, with these additional summaries/recommendations: Patient seen at bedside laying on his left side. No acute overnight events. Patient continues to have left-sided hemiparesis although he feels it has slightly improved. Patient diagnosed with acute CVA. Brain MRI revealed 10 mm acute infract right basal cannula and lack of filling P2 and P2 segments left posterior cerebral artery. In-house neurology following, patient on DAPT. echocardiogram taken and pending read. F/U outpatient for results. Previous MAREK approx. 2 months ago showed no PFO. Continue high intensity statin. LDL 161. Patient was counseled on substance abuse cessation. Pending placement. Dr. Preston MD
--- NOTE | 2024-06-26 14:33 | PC.SS ---
has sent dc orders and dc summary and PASRR to [facility] using [facility]. SS has spoken to Evelina from admissions who is aware and informed SS patient's health insurance was contacted this morning. Insurance authorization is pending.
--- NOTE | 2024-06-26 16:00 | PC.SS ---
SS has attempted to contact patient's health insurance, [facility], outside industrial sales representative Óscar at [phone] but was unsuccessful. SS left voicemail stating pt is ready for dc and SS is requesting insurance authorization for [facility]. SS also attempted to call Beverley at [phone] but was only able to leave voicemail.
--- NOTE | 2024-06-26 16:39 | PC.SS ---
Addendum entered by HAYDEN Cuevas 06/26/24 17:00: ETA provided for 7pm with [facility]. Updated bed side nurse Nancy and SNF staff. Addendum entered by HAYDEN Cuevas 06/26/24 16:57: Transport arranged via [facility] reference number: [id number]. Pending ETA. Original Note: SS received call from [employer] patient's [employer], phone# [phone] who states she has provided insurance authorization to [facility]. Authorization number is [id number]. SS spoke to Haleigh at [facility] who has confirmed insurance authorization has been received and will accept pt tonight. Pt is aware. Mom is aware once authorization is received pt will go to [facility]. SS called mom 3 X today but she did not answer (SS unable to leave voicemail). Bedside nurse, Soni is aware pt to d/c today around 7pm. Mare DAVALOS is aware. Phoebe BLAKE is setting up transportation.
--- NOTE | 2024-06-26 17:06 | PC.SS ---
SUBCONTRACT MANAGER attempted phone call with patient's mother, Lois Alcocer ; to provide update that patient will be transitioned to [facility] today at 07:00 pm. No response, unable to leave message.
[2024-06-26] MEDS: ATORVASTATIN CALCIUM 20 MG TABLET 80 MG PO (20:03)
--- NOTE | 2024-06-26 20:25 | PC.NURSE ---
REPORT GIVEN TO ADDIE ROMO AT [facility]. AMBULANCE ARRIVED AT THE TIME OF REPORT. RN MADE AWARE.
--- NOTE | 2024-06-26 20:40 | PC.NURSE ---
PT DISCHARGE WITH AMBULANCE PERSONNEL AT BEDSIDE VIA GURNEY. PT AWAKE, ROOM AIR. NO SIGNS OF DISTRESS. ALL PERSONAL BELONGINGS WITH PT
--- NOTE | 2024-06-26 23:37 | PD.VPROG1 ---
Telemedicine visit statement This visit was conducted with the use of interactive audio and video telecommunications system that permits real time communication between the patient and the provider. Patient's verbal consent for virtual visit was obtained on 06/26/24. Documentation for date of: 06/26/24 Subjective Subjective Interval history: Patient is in telemetry. Continues to have a left hemiparesis. Physical therapy evaluated him and recommended inpatient rehab Virtual exam Vital Signs Temp Pulse Resp BP Pulse Ox O2 Del Method O2 Flow Rate 97.2 F 83 20 145/95 H 95 Room Air 2 06/26/24 20:30 06/26/24 21:05 06/26/24 21:05 06/26/24 20:30 06/26/24 20:30 06/26/24 20:30 06/24/24 02:32 Objective Labs 06/26/24 05:06/26/24 05:25 Labs: Laboratory Results - last 24 hr 06/26/24 05:25 WBC 10.0 RBC 5.12 Hgb 14.4 Hct 43.0 MCV 84 MCH 28.1 MCHC 33.5 RDW Std Deviation 42.2 Plt Count 280 Neut % (Auto) 63 Lymph % (Auto) 27 [place] % (Auto) 7 Eos % (Auto) 3 Baso % (Auto) 0 Neut # (Auto) 6.2 Lymph # (Auto) 2.7 [place] # (Auto) 0.7 Eos # (Auto) 0.3 Baso # (Auto) 0.0 Immature Gran # (Auto) 0.03 H Absolute Nucleated RBC 0.00 Immature Gran % 0 Nucleated RBC % 0 Sodium 141 Potassium 3.8 Chloride 108 H Carbon Dioxide 26.1 Anion Gap 7 BUN 17 Creatinine 1.3 Estim Creat Clear Calc Not Performed. eGFR > 60 BUN/Creatinine Ratio 13 Glucose 110 H Calculated Osmolality 283 Calcium 9.2 Corrected Calcium 9.2 Phosphorus 3.4 Magnesium 1.9 Total Bilirubin 0.9 AST 16 ALT 9 L Alkaline Phosphatase 114 Total Protein 7.0 Albumin 4.0 Globulin 3.0 Albumin/Globulin Ratio 1.3 Assessment & Plan Assessment 1) Acute CVA (cerebrovascular accident): Based on the MRI brain with small acute infarct in the right parietal area. Increased signal changes in FLAIR sequence is suspicious for multiple sclerosis, sent the CSF for MS panel. MRA findings with intracranial stenosis. This could have been related to longstanding uncontrolled hypertension and drug usage. Continue Plavix along with aspirin with statin for prophylaxis. Patient needs inpatient rehab. [facility]. Follow-up in 2 weeks with me. 2) HTN: Hydralazine was increased to 25 mg 3 times a day for better control of blood pressure. Continue with amlodipine and losartan Drug abuse:3) advised him about the importance of drug cessation to prevent further massive strokes in the future
== END 2024-06-26 20:40 | disposition skilled nursing facility (03) | DRG 45 ==
LOC: SERX 06-24 00:35 → SERHOLD 06-24 03:57 → S2NX 06-24 04:48
PROVIDERS: Psychiatry & Neurology Neurology; Admitting Provider Student in an Organized Health Care Education/Training Program; Emergency Provider Emergency Medicine; Visit Provider Student in an Organized Health Care Education/Training Program
DX: I63.89 Other cerebral infarction (principal); R29.810 Facial weakness; R47.1 Dysarthria and anarthria; N17.9 Acute kidney failure, unspecified; E78.5 Hyperlipidemia, unspecified; R31.29 Other microscopic hematuria; I10 Essential (primary) hypertension; I69.354 Hemiplegia and hemiparesis following cerebral infarction affecting left non-dominant side; R29.710 NIHSS score 10; R29.6 Repeated falls; F12.20 Cannabis dependence, uncomplicated; F15.20 Other stimulant dependence, uncomplicated; F17.210 Nicotine dependence, cigarettes, uncomplicated; Z91.148 Patient's other noncompliance with medication regimen for other reason; Z71.6 Tobacco abuse counseling; Z71.51 Drug abuse counseling and surveillance of drug abuser; Z79.02 Long term (current) use of antithrombotics/antiplatelets; Z79.82 Long term (current) use of aspirin; Z79.899 Other long term (current) drug therapy
CPT/HCPCS: 36415; 70450; 70496; 70498; 70544; 71045; 72125; 80053; 80061; 80307; 80320; 81001; 83605; 83735; 84100; 84145; 84443; 84484; 85025; 85610; 85730; 87040; 87086; 92610; 93005; 93306; 97162; 99291; A4649; J1643; J3490; J7120; Q9967; A9270; G0480; J1920

== ENCOUNTER 2024-07-10 00:05 | Inpatient (IN) | payer MEDICAID, SELFPAY ==
[2024-07-10] VITALS (24 sets, daily range): BP systolic 129–183; BP diastolic 80–133; PULSE 68–124; RESP 15–23; TEMP 36.1–37.1; O2SAT 93–99; BMI 28.0; BMI 26.6
--- NOTE | 2024-07-10 00:14 | XR_ITS ---
Examination: AP chest single view TECHNIQUE: AP portable upright chest single view Date and time: July 10, 2024 0120 hours Comparison June 24, 2024 INDICATIONS: Vomiting today. FINDINGS: Normal heart size. No aspiration pneumonia. Osseous structures intact IMPRESSION: No aspiration pneumonia
--- NOTE | 2024-07-10 00:17 | EKG_ITS ---
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
[2024-07-10 00:34] LABS: Basophils # (Auto) 0.1 Thou/mm3 (0.0-0.2); Basophils % (Auto) 0 % (0-2.5); Eosinophils # (Auto) 0.2 Thou/mm3 (0.0-0.5); Eosinophils % (Auto) 1 % (0-10); Hemoglobin 15.2 g/dL (13.5-16.0); Immature Granulocytes % (Auto) 1 % (0-0); Immature Granulocytes Auto 0.11 Thou/mm3 (0.00-0.00); Lymphocytes # (Auto) 2.1 Thou/mm3 (1.0-4.8); Lymphocytes % (Auto) 9 % (10-50); Mean Corpuscular HGB Conc 34.5 g/dl (31.0-37.0); Mean Corpuscular Hemoglobin 28.7 pg (25.0-35.0); Mean Corpuscular Volume 83 fL (80-100); Monocytes # (Auto) 1.1 Thou/mm3 (0.0-0.8); Monocytes % (Auto) 5 % (0-12); Neutrophils # (Auto) 18.9 Thou/mm3 (1.8-7.7); Neutrophils % (Auto) 84 % (37-80); Nucleated Red Blood Cell % 0 /100 WBC (0); Platelet Count 419 Thou/mm3 (140-440); RDW Standard Deviation 40.1 fL (35.1-43.9); White Blood Count 22.5 Thou/mm3 (3.8-10.6)
[2024-07-10] MEDS: PANTOPRAZOLE INJ 40 MG VIAL IVP (00:50)
[2024-07-10 00:51] LABS: Alanine Aminotransferase 13 U/L (10-49); Albumin, Serum 4.5 gm/dL (3.5-5.0); Albumin/Globulin Ratio 1.4 (1.2-2.2); Alkaline Phosphatase 134 U/L (46-116); Anion Gap 12 (7-16); Aspartate Amino Transferase 24 U/L (0-34); BUN/Creatinine Ratio 15 Ratio (12-20); Bilirubin,Total 0.5 mg/dL (0.3-1.2); Blood Urea Nitrogen 21 mg/dL (9-23); Calcium 9.2 mg/dL (8.3-10.6); Calcium (Corrected) 9.2 mg/dL (8.5-10.1); Carbon Dioxide 25.3 mMol/L (20.0-31.0); Chloride 104 mMol/L (98-107); Creatinine (Component) 1.4 mg/dL (0.6-1.3); Estimated Creatinine Clearance 85.2 mL/min (>60); Globulin 3.2 gm/dL (2.3-3.5); Glucose 151 mg/dL (74-106); Magnesium 1.9 mg/dL (1.6-2.6); Osmolality,Calculated 287 (275-295); Phosphorous 3.2 mg/dL (2.4-5.1); Sodium 141 mMol/L (136-145); Total Protein 7.7 gm/dL (5.7-8.2); eGFR > 60 See Note
[2024-07-10 00:52] LABS: Partial Thromboplastin Time 26.6 Seconds (22.0-36.0); Prothrombin Time 11.2 Seconds (9.0-12.2)
[2024-07-10 01:25] LABS: Collection Type, Urine Clean Catch
[2024-07-10 01:37] LABS: Bilirubin,Urine Negative (Negative); Blood,Urine Negative (Negative); Clarity,Urine Clear (Clear/Hazy); Color,Urine Yellow (Lt Yel-Yel); Glucose, Urine Negative (Negative); Hyaline Casts,Urine < 1 /hpf (0-1); Ketones,Urine 1+ (Negative); Leukocyte Esterase,Urine Negative (Negative); Nitrite,Urine Negative (Negative); Protein,Urine 1+ (Neg - Trace); RBC,Urine 2 /hpf (0-3); Specific Gravity,Urine 1.028 (1.001-1.035); Squamous Epithelial Cell,Urine 1 /hpf (0-5); WBC,Urine 6 /hpf (0-5)
[2024-07-10] MEDS: LABETALOL INJ 5 MG/ML VIAL 20 ML IVP (01:42)
[2024-07-10] MEDS: ONDANSETRON INJ 2 MG/ML INJ 2 ML 4 MG IV (01:43)
[2024-07-10] MEDS: RINGERS LACTATED 500 ML 500 ML 999 ML IV (01:44)
[2024-07-10 01:52] LABS: Lactate (Lactic Acid) 0.9 mMol/L (0.4-2.0)
[2024-07-10 02:21] LABS: Procalcitonin 0.09 ng/ml (0.0-0.49)
[2024-07-10] MEDS: PANTOPRAZOLE/NS 80MG IV PREMIX 80 MG/100 ML BAG 10 MG IV (02:29)
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
--- NOTE | 2024-07-10 04:14 | PC.NURSE ---
assisted pt with complete line change, mahendra care and brief change
[2024-07-10] MEDS: RINGERS LACTATED 1000 ML 1,000 ML 100 ML IV (04:47)
[2024-07-10 05:04] LABS: Basophils % (Auto) 0 % (0-2.5); Eosinophils % (Auto) 0 % (0-10); Hematocrit 41.2 % (41.0-53.0); Immature Granulocytes % (Auto) 0 % (0-0); Immature Granulocytes Auto 0.05 Thou/mm3 (0.00-0.00); Lymphocytes # (Auto) 1.6 Thou/mm3 (1.0-4.8); Lymphocytes % (Auto) 9 % (10-50); Mean Corpuscular Volume 85 fL (80-100); Monocytes # (Auto) 1.1 Thou/mm3 (0.0-0.8); Monocytes % (Auto) 6 % (0-12); Neutrophils # (Auto) 14.6 Thou/mm3 (1.8-7.7); Neutrophils % (Auto) 84 % (37-80); Nucleated Red Blood Cell % 0 /100 WBC (0); Platelet Count 336 Thou/mm3 (140-440); RDW Standard Deviation 41.4 fL (35.1-43.9); Red Blood Count 4.83 Miln/mm3 (4.50-5.90); White Blood Count 17.4 Thou/mm3 (3.8-10.6)
[2024-07-10 05:16] LABS: Prothrombin Time 11.4 Seconds (9.0-12.2)
[2024-07-10 05:26] LABS: Alanine Aminotransferase 11 U/L (10-49); Alkaline Phosphatase 120 U/L (46-116); Anion Gap 9 (7-16); Aspartate Amino Transferase 17 U/L (0-34); BUN/Creatinine Ratio 15 Ratio (12-20); Bilirubin,Direct 0.2 mg/dL (0.0-0.3); Bilirubin,Total 0.5 mg/dL (0.3-1.2); Blood Urea Nitrogen 20 mg/dL (9-23); Carbon Dioxide 25.8 mMol/L (20.0-31.0); Cardiac Risk Estimate 2.1 RATIO (4.0-6.7); Chloride 108 mMol/L (98-107); Cholesterol 103 mg/dL (132-200); Creatinine (Component) 1.3 mg/dL (0.6-1.3); Estimated Creatinine Clearance 91.7 mL/min (>60); Glucose 118 mg/dL (74-106); HDL Cholesterol 49 mg/dL (40-60); LDL Cholesterol,Calculated 42 mg/dL (0-130); Magnesium 1.8 mg/dL (1.6-2.6); Osmolality,Calculated 288 (275-295); Phosphorous 3.4 mg/dL (2.4-5.1); Potassium 4.2 mMol/L (3.4-5.1); Sodium 143 mMol/L (136-145); Thyroid Stimulating Hormone 0.87 uIU/mL (0.55-4.78); Total Protein 6.8 gm/dL (5.7-8.2); Triglycerides 61 mg/dL (30-150); eGFR > 60 See Note
[2024-07-10 07:10] LABS: Hepatitis A Antibody IgM Non Reactive (Non React); Hepatitis B Core Antibody IgM Non Reactive (Non React); Hepatitis B Surface Antigen Non Reactive (Non React); Hepatitis C Antibody Non Reactive (Non React)
--- NOTE | 2024-07-10 08:22 | XR_ITS ---
Examination: CT abdomen and pelvis without contrast. Coronal 3-D reconstructions. Sagittal 2-D reconstructions. Date and time of exam:July 10, 2024 0916 hours INDICATIONS: Leukocytosis, unknown etiology CTDI: vol (mGy): 8.98 DLP: (mGycm): 546 Technique: Axial images of the abdomen have been obtained, 3 mm slice thickness Intravenous contrast material has not been administered. Low dose protocols were performed. One or more of the following dose reduction techniques were used; automated exposure control, adjustment of the mA and/or KV according to patient size, use of iterative reconstruction technique. Findings: Retrocardiac gastric hernia. No focal liver or splenic lesion No gallstones No pancreatic or adrenal mass No renal or ureteral calculi, no hydronephrosis Aortic calcification no aneurysmal dilatation Normal appendix No abdominal or pelvic lymphadenopathy No bowel obstruction No significant prostatomegaly Urinary bladder intact Moderate osteopenia IMPRESSION: No renal or ureteral calculi, no hydronephrosis. Normal appendix. No abdominal or pelvic lymphadenopathy
[2024-07-10] MEDS: Magnesium Sulfate 4 GM Ivpb 4 GM/50 ML BAG IV (09:52)
[2024-07-10] MEDS: ASPIRIN EC 81 MG TABEC PO (09:53)
[2024-07-10] MEDS: CLOPIDOGREL BISULFATE 75 MG TABLET PO (09:53)
[2024-07-10] MEDS: LOSARTAN POTASSIUM 25 MG TABLET 50 MG PO (09:53)
[2024-07-10 11:18] LABS: Hematocrit 39.5 % (41.0-53.0); Hemoglobin 13.3 g/dL (13.5-16.0)
--- NOTE | 2024-07-10 11:39 | PD.IMCONS ---
HPI Data of Consult Requesting Physician: Renny Schmidt MD Primary Care Provider: Kajal Cardona MD Consult Narrative Reason for consult: Coffee-ground hematemesis History of present illness: 48-year-old male with a recent right CVA with residual left hemiparesis started on aspirin and Plavix presented the hospital 5-6 episodes of coffee-ground hematemesis cc:: cc: Renny Schmidt MD Review of Systems Review of Systems Systems Reviewed: All systems reviewed, normal except as documented Past Medical History Surgical History OTHER SURGICAL HX: Meth amphetamine abuse Recent CVA with left-sided residual motor weakness Meds Home Medications and Allergies Allergies Allergy/AdvReac Type Severity Reaction Status Date / Time No Known Allergies Allergy Verified 01/17/23 11:33 Exam Vital Signs Temp Pulse Resp BP Pulse Ox O2 Del Method O2 Flow Rate 97.8 F 96 16 138/80 H 96 Oxy Mask 2 07/10/24 07:55 07/10/24 09:53 07/10/24 07:55 07/10/24 09:53 07/10/24 07:55 07/10/24 07:55 07/10/24 07:55 Constitutional Comments: Chronically ill-appearing Routine Respiratory Exam Comments: Normal to auscultation Routine Abdominal Exam Comments: Soft nontender Results Labs 07/10/24 15:49 07/10/24 04:32 Labs: Short CBC 07/10/24 07/10/24 07/10/24 Range/Units 00:18 04:32 11:00 WBC 22.5 H 17.4 H D (3.8-10.6) Thou/mm3 Hgb 15.2 14.0 13.3 L (13.5-16.0) g/dL Hct 44.0 41.2 39.5 L (41.0-53.0) % Plt Count 419 D 336 D (140-440) Thou/mm3 BMP 07/10/24 07/10/24 00:18 04:32 Sodium 141 143 Potassium 4.0 4.2 Chloride 104 108 H Carbon Dioxide 25.3 25.8 BUN 21 20 Creatinine 1.4 H 1.3 Glucose 151 H 118 H Calcium 9.2 9.0 Liver Function 07/10/24 07/10/24 Range/Units 00:18 04:32 Total Bilirubin 0.5 0.5 (0.3-1.2) mg/dL Direct Bilirubin 0.2 (0.0-0.3) mg/dL AST 24 17 (0-34) U/L ALT 13 11 (10-49) U/L Alkaline Phosphatase 134 H 120 H (46-116) U/L Albumin 4.5 4.0 D (3.5-5.0) gm/dL Urine 07/10/24 Range/Units 01:05 Urine Color Yellow (Lt Yel-Yel) Urine Clarity Clear (Clear/Hazy) Urine pH 5.0 (5.0-7.0) Ur Specific [place] 1.028 (1.001-1.035) Urine Protein 1+ A (Neg - Trace) Urine Glucose (UA) Negative (Negative) Assessment and Plan Additional Assessment & Plan Additional Plan: # Coffee-ground hematemesis # Recent CVA with left-sided residual motor weakness # Methamphetamine abuse Plan N.p.o. IV Protonix Serial CBC Consent obtained for fiberoptic esophagogastroduodenoscopy with possible therapeutic intervention possible biopsy under intravenous moderate sedation and the patient has been scheduled for today Thank you for the opportunity to participate in the care of this patient
--- NOTE | 2024-07-10 11:59 | PD.RESPRO ---
Documentation for date of: 07/10/24 Subjective Subjective Interval history: 07/10/2024: Overnight admitted for 48-year-old male with past medical history of recurrent CVA, meth use disorder presenting with episodes of hematemesis. Patient seen and examined in hospital bed denies having any concerning cardiac symptoms such as chest pain, shortness of breath, palpitations or any new dizziness. Patient has scheduled EGD with gastroenterology this afternoon. During admission, patient presented with leukocytosis with [address] abdomen pelvis ordered to look for potential source; however, largely negative. Will order physical therapy for placement back to over a walk. Expecting discharge within the next 24 hours if EGD results are negative. Exam Vital Signs Temp Pulse Resp BP Pulse Ox O2 Del Method O2 Flow Rate 97.8 F 96 16 138/80 H 96 Oxy Mask 2 07/10/24 07:55 07/10/24 09:53 07/10/24 07:55 07/10/24 09:53 07/10/24 07:55 07/10/24 07:55 07/10/24 07:55 Narrative Exam Physical Exam: General: Awake, Speech is slow but answers appropriately. Dysarthria. HEENT: Normocephalic, atraumatic, mucous membranes moist. Heart: Regular rate and rhythm, no murmurs. Lungs: Clear to auscultation with no wheezing or crackles. Abdomen: Soft, nondistended, nontender, positive bowel sounds. ?No guarding or rebound tenderness. Neurologic: Alert and oriented x3, strength in left extremities 1/5, clenched fist left side, Extremities: No edema. Skin: No rash or ecchymoses. Objective Labs 07/11/24 05:15 07/11/24 05:15 Labs: Laboratory Results - last 24 hr 07/10/24 07/10/24 07/10/24 00:18 01:05 01:34 WBC 22.5 H RBC 5.30 Hgb 15.2 Hct 44.0 MCV 83 MCH 28.7 MCHC 34.5 RDW Std Deviation 40.1 Plt Count 419 D Neut % (Auto) 84 H Lymph % (Auto) 9 L [place] % (Auto) 5 Eos % (Auto) 1 Baso % (Auto) 0 Neut # (Auto) 18.9 H Lymph # (Auto) 2.1 [place] # (Auto) 1.1 H Eos # (Auto) 0.2 Baso # (Auto) 0.1 Immature Gran # (Auto) 0.11 H Absolute Nucleated RBC 0.00 Immature Gran % 1 H Nucleated RBC % 0 PT 11.2 INR 1.0 APTT 26.6 Sodium 141 Potassium 4.0 Chloride 104 Carbon Dioxide 25.3 Anion Gap 12 BUN 21 Creatinine 1.4 H Estim Creat Clear Calc 85.2 eGFR > 60 BUN/Creatinine Ratio 15 Glucose 151 H Calculated Osmolality 287 Lactic Acid 0.9 Calcium 9.2 Corrected Calcium 9.2 Phosphorus 3.2 Magnesium 1.9 Total Bilirubin 0.5 Direct Bilirubin AST 24 ALT 13 Alkaline Phosphatase 134 H Total Protein 7.7 Albumin 4.5 Globulin 3.2 Albumin/Globulin Ratio 1.4 Triglycerides Cholesterol LDL Cholesterol, Calc HDL Cholesterol Cholesterol/HDL Ratio Procalcitonin 0.09 TSH Ur Collection Type Clean Catch Urine Color Yellow Urine Clarity Clear Urine pH 5.0 Ur Specific [place] 1.028 Urine Protein 1+ A Urine Glucose (UA) Negative Urine Ketones 1+ A Urine Blood Negative Urine Nitrite Negative Urine Bilirubin Negative Urine Urobilinogen (Auto) 2.0 Ur Leukocyte Esterase Negative Urine RBC 2 Urine WBC 6 H Ur Squamous Epith Cells 1 Urine Bacteria None Hyaline Casts < 1 Hepatitis A IgM Ab Hep Bs Antigen Hep B Core IgM Ab Hepatitis C Antibody 07/10/24 07/10/24 04:32 11:00 WBC 17.4 H D RBC 4.83 Hgb 14.0 13.3 L Hct 41.2 39.5 L MCV 85 MCH 29.0 MCHC 34.0 RDW Std Deviation 41.4 Plt Count 336 D Neut % (Auto) 84 H Lymph % (Auto) 9 L [place] % (Auto) 6 Eos % (Auto) 0 Baso % (Auto) 0 Neut # (Auto) 14.6 H Lymph # (Auto) 1.6 [place] # (Auto) 1.1 H Eos # (Auto) 0.0 Baso # (Auto) 0.0 Immature Gran # (Auto) 0.05 H Absolute Nucleated RBC 0.00 Immature Gran % 0 Nucleated RBC % 0 PT 11.4 INR 1.0 APTT Sodium 143 Potassium 4.2 Chloride 108 H Carbon Dioxide 25.8 Anion Gap 9 BUN 20 Creatinine 1.3 Estim Creat Clear Calc 91.7 eGFR > 60 BUN/Creatinine Ratio 15 Glucose 118 H Calculated Osmolality 288 Lactic Acid Calcium 9.0 Corrected Calcium Phosphorus 3.4 Magnesium 1.8 Total Bilirubin 0.5 Direct Bilirubin 0.2 AST 17 ALT 11 Alkaline Phosphatase 120 H Total Protein 6.8 Albumin 4.0 D Globulin Albumin/Globulin Ratio Triglycerides 61 Cholesterol 103 L LDL Cholesterol, Calc 42 HDL Cholesterol 49 Cholesterol/HDL Ratio 2.1 L Procalcitonin TSH 0.87 Ur Collection Type Urine Color Urine Clarity Urine pH Ur Specific [place] Urine Protein Urine Glucose (UA) Urine Ketones Urine Blood Urine Nitrite Urine Bilirubin Urine Urobilinogen (Auto) Ur Leukocyte Esterase Urine RBC Urine WBC Ur Squamous Epith Cells Urine Bacteria Hyaline Casts Hepatitis A IgM Ab Non Reactive Hep Bs Antigen Non Reactive Hep B Core IgM Ab Non Reactive Hepatitis C Antibody Non Reactive Quality Measures Quality Measures none Assessment & Plan Assessment Current Active Medications: Generic Name Dose Route Start Last Admin Trade Name Freq PRN Reason Stop Dose Admin Acetaminophen 650 mg 07/10/24 03:13 Acetaminophen 325 Mg Tablet PO 08/09/24 03:12 Q6H PRN PAIN OR FEVER > 101 Aspirin 81 mg 07/10/24 09:00 07/10/24 09:53 Aspirin Ec 81 Mg Tabec PO 08/09/24 08:59 81 mg QDAY GUS Administration Atorvastatin Calcium 40 mg 07/10/24 21:00 Atorvastatin Calcium 20 Mg Tablet PO 08/09/24 20:59 HS GUS Clopidogrel Bisulfate 75 mg 07/10/24 09:00 07/10/24 09:53 Clopidogrel Bisulfate 75 Mg Tablet PO 08/09/24 08:59 75 mg QDAY GUS Administration Lactated Ringer's 1,000 mls @ 100 mls/hr 07/10/24 03:22 07/10/24 04:47 Lactated Ringers IV 07/10/24 13:21 100 mls/hr .Q10H ONE Administration Magnesium Sulfate 4 gm in 50 mls @ 12.5 mls/hr 07/10/24 08:33 07/10/24 09:52 Magnesium Sulfate Ivpb IV 07/10/24 12:32 12.5 mls/hr X1 ONE Administration Labetalol HCl 10 mg 07/10/24 05:26 Labetalol Inj 5 Mg/Ml Vial 20 Ml IVP 08/09/24 05:59 Q4HR PRN SBP > 170 Losartan Potassium 50 mg 07/10/24 09:00 07/10/24 09:53 Losartan Potassium 25 Mg Tablet PO 08/09/24 08:59 50 mg QDAY GUS Administration Metoclopramide HCl 5 mg 07/10/24 03:20 Metoclopramide Inj 5 Mg/Ml Vial 2 Ml IVP 08/09/24 05:59 Q8HR PRN vomiting Protocol Plan 46-year-old male with past medical history of recurrent CVA, meth use disorder, hypertension presenting to the ED with several bouts of hematemesis, admitted for for endoscopy with gastroenterology. #Acute GI bleed DDx: Peptic ulcer disease versus variceal bleed Patient has no history of cirrhosis, likely peptic ulcer disease, exacerbated by medications including antiplatelets. Less likely variceal bleed as patient has no history of cirrhosis or portal hypertension. Patient also denies any alcohol consumption Hemoglobin trend 15.2 => 14 => 13.3 Plan: GI consult Dr. Larry is placed, appreciate recommendations EGD scheduled for 07/10 Hemoglobin hematocrit every 6 hours Transfuse if hemoglobin goes below 7 or sharp decrease #Leukocytosis, likely reactive No possible source of infection, likely reactive leukocytosis in the setting of GI bleed Patient does not appear toxic, denies having any concerning symptoms for infection Physical exam largely negative CT abdomen pelvis does not show any acute process Urinalysis not show any signs of infection Chest x-ray negative for any active disease Plan: Continue to monitor, patient is afebrile #LUIS A, improving #Electrolyte abnormalities DDx prerenal versus renal versus postrenal Likely prerenal cause in the setting of GI bleed and hypovolemia. Will get ultrasound abdomen to evaluate kidney size, rule out kidney stones Gentle IV fluids resuscitation completed Plan: Replete electrolytes as necessary Renally dose medications as appropriate Follow-up with morning labs Avoid nephrotoxic drugs #History of CVA #History of hypertension #History of methamphetamine abuse #History of tobacco smoking Pending official med rec Plan: Restarted aspirin and Plavix Hospital Management: Lines: PIV Diet: N.p.o. Bowel: Not needed at this time GI prophylaxis: Protonix DVT prophylaxis: SCD Dispo: EGD with gastroenterology, PT eval Code: Full Patient seen and examined with attending Dr. Salcido and senior resident Dr. Vinnie Muñoz, PGY-1 Patient examined and case discussed with the team including attending physician. Note reviewed, I agree with the care plan as documented. Mr Cheek is a 48 year old male admitted for upper GI bleed secondary to variceal bleed. Patient reported multiple episodes at home. Hb at the time of admission 15.2 ->14 ->13.[address] Larry consulted, will follow up with GI recommendations post procedure, appreciate input. Leukocytosis improving 22 -> 17 , likely reactive given negative UA and CXR. CT abdo pelvis also unremarkable for any acute findings. Plan: Patient will need another PT evaluation prior to DC back to SNF. Please refer to the note above for further details. - Clyde Birmingham MD, PGY 2 Disclaimer: The document may contain phonetic/typographic errors due to voice recognition software. These errors are purely due to imperfections in the software program and should not be misconstrued in any way to compromise the substance of the patient's medical care during this visit. Attending Provider Attestation/Addendum I, Radha Salcido DO, attest that I was physically present for the lopez portions of the service and evaluated the patient with the resident and I reviewed and discussed the case with the resident and agree with the resident's findings and plans of care as documented above Patient seen and eval this a.m. Patient has slow speech, but is articulate. 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 He is brought in from a SNF due to hematemesis. Patient states that he had several episodes of red emesis. However, he also states that he had some food that appeared to be red on his plate yesterday at the longterm facility. He reports some pain in his epigastric region. He otherwise denies any fevers or chills. He does not know if he has any diarrhea. He currently denies any nausea or vomiting. GI was called from ED. Plan for endoscopy this evening. Will follow-up with endoscopy results. H&H otherwise appears to be stable. Will continue to trend H&H. Patient is hemodynamically stable otherwise. Continue with Protonix at this time.
--- NOTE | 2024-07-10 13:40 | PC.SS ---
Patient is a short term resident of [facility] and is expected to return. He was admitted to hospital from facility. Patient was admitted for gi bleed. Patient's mother is the alt medical decision maker. Patient has hx: stroke and meth use. His speech is slurred and he has difficulty speaking and making out words. SS attempted to speak with mother. Called phone but voicemail full and no response. SS spoke to facility and they will need new authorization upon discharge.
[2024-07-10 15:59] LABS: Hematocrit 41.7 % (41.0-53.0)
--- NOTE | 2024-07-10 19:30 | PC.NURSE ---
Pt taken to endo
--- NOTE | 2024-07-10 20:15 | SUR.PHASEI ---
2014 Patient arrived to recovery resting comfortably in [facility], sleeping and able to arouse then drifts back to sleep, oxygen therapy 4L via nasal cannula initiated, breathing unlabored, vital signs stable, denies pain and nausea, report received from Shira REAL
--- NOTE | 2024-07-10 20:49 | SUR.PHASEI ---
2044 Report given to Leann REAL, patient meets discharge criteria from recovery, on oxygen 2L via nasal cannula, breathing unlabored, vital signs stable, denies nausea and pain 2048 Patient transported via gurney to room 376 without incident, Leann REAL promptly in patients room with LINE THERAPIST, assisted this expert medical writer with transferring patient from gurney to bed.
--- NOTE | 2024-07-10 21:00 | PC.NURSE ---
Pt back from ENDO
[2024-07-10] MEDS: MG HYD/AL HYD/SIME (Maalox Reg) SUSP 30 ML UDC 15 ML PO (21:43)
[2024-07-10] MEDS: PANTOPRAZOLE INJ 40 MG VIAL 80 MG IV (21:43)
[2024-07-10 22:13] LABS: Hematocrit 37.5 % (41.0-53.0); Hemoglobin 12.7 g/dL (13.5-16.0)
[2024-07-11] VITALS (13 sets, daily range): BP systolic 137–162; BP diastolic 77–105; PULSE 56–92; RESP 16–20; TEMP 36.2–36.7; O2SAT 92–97; BMI 12.0
[2024-07-11] MEDS: MG HYD/AL HYD/SIME (Maalox Reg) SUSP 30 ML UDC 15 ML PO ×4 (05:31→20:43)
[2024-07-11 06:15] LABS: Basophils % (Auto) 0 % (0-2.5); Eosinophils # (Auto) 0.4 Thou/mm3 (0.0-0.5); Eosinophils % (Auto) 3 % (0-10); Hematocrit 40.1 % (41.0-53.0); Hemoglobin 13.4 g/dL (13.5-16.0); Immature Granulocytes % (Auto) 0 % (0-0); Immature Granulocytes Auto 0.04 Thou/mm3 (0.00-0.00); Lymphocytes # (Auto) 2.3 Thou/mm3 (1.0-4.8); Lymphocytes % (Auto) 17 % (10-50); Mean Corpuscular HGB Conc 33.4 g/dl (31.0-37.0); Mean Corpuscular Hemoglobin 28.9 pg (25.0-35.0); Mean Corpuscular Volume 86 fL (80-100); Monocytes % (Auto) 8 % (0-12); Neutrophils # (Auto) 9.5 Thou/mm3 (1.8-7.7); Neutrophils % (Auto) 72 % (37-80); Nucleated Red Blood Cell % 0 /100 WBC (0); Platelet Count 305 Thou/mm3 (140-440); RDW Standard Deviation 42.4 fL (35.1-43.9); Red Blood Count 4.64 Miln/mm3 (4.50-5.90); White Blood Count 13.2 Thou/mm3 (3.8-10.6)
[2024-07-11 06:29] LABS: Anion Gap 11 (7-16); BUN/Creatinine Ratio 14 Ratio (12-20); Blood Urea Nitrogen 17 mg/dL (9-23); Calcium 8.8 mg/dL (8.3-10.6); Carbon Dioxide 25.2 mMol/L (20.0-31.0); Chloride 107 mMol/L (98-107); Creatinine (Component) 1.2 mg/dL (0.6-1.3); Estimated Creatinine Clearance 91.9 mL/min (>60); Glucose 95 mg/dL (74-106); Osmolality,Calculated 286 (275-295); Potassium 3.8 mMol/L (3.4-5.1); Sodium 143 mMol/L (136-145); eGFR > 60 See Note
[2024-07-11] MEDS: amLODIPine BESYLATE 5 MG TABLET 10 MG PO (08:56)
[2024-07-11] MEDS: LOSARTAN POTASSIUM 25 MG TABLET 50 MG PO (08:57)
[2024-07-11] MEDS: CLOPIDOGREL BISULFATE 75 MG TABLET PO (08:58)
[2024-07-11] MEDS: ASPIRIN EC 81 MG TABEC PO (08:58)
[2024-07-11] MEDS: PANTOPRAZOLE INJ 40 MG VIAL 80 MG IV ×2 (08:58→20:43)
--- NOTE | 2024-07-11 11:44 | ESPR_ITS ---
Documentation for date of: 07/11/24 Subjective Subjective Interval history: 07/11/2024: No acute overnight events to report. Patient seen and examined in hospital bed reporting improvement in presenting symptoms and denies having any abdominal pain or dysphagia; moreover, patient denies have any concerning cardiac symptoms such as chest pain, shortness of breath, palpitations or new dizziness. Patient had EGD completed with GI on 07/10 which showed multiple esophageal ulcers with oozing, gastritis and severe duodenitis. Gastroenterology recommends that the patient be on Protonix 80 mg every 12 hours, sucralfate 1 g 4 times daily, Maalox and to advance diet as tolerated. Will continue to monitor the patient and expect discharge within the next 24 hours. Exam Vital Signs Temp Pulse Resp BP Pulse Ox O2 Del Method O2 Flow Rate 97.5 F 80 18 162/105 H 97 Room Air 2 07/11/24 08:00 07/11/24 08:57 07/11/24 08:00 07/11/24 08:57 07/11/24 08:00 07/11/24 08:00 07/10/24 20:45 Narrative Exam Physical Exam: General: Awake, Speech is slow but answers appropriately. Dysarthria. HEENT: Normocephalic, atraumatic, mucous membranes moist. Heart: Regular rate and rhythm, no murmurs. Lungs: Clear to auscultation with no wheezing or crackles. Abdomen: Soft, nondistended, nontender, positive bowel sounds. ?No guarding or rebound tenderness. Neurologic: Alert and oriented x3, strength in left extremities 1/5, clenched fist left side, Extremities: No edema. Skin: No rash or ecchymoses. Objective Labs 07/11/24 05:15 07/11/24 05:15 Labs: Laboratory Results - last 24 hr 07/10/24 07/10/24 07/11/24 15:49 22:03 05:15 WBC 13.2 H RBC 4.64 Hgb 14.0 12.7 L 13.4 L Hct 41.7 37.5 L 40.1 L MCV 86 MCH 28.9 MCHC 33.4 RDW Std Deviation 42.4 Plt Count 305 D Neut % (Auto) 72 Lymph % (Auto) 17 [place] % (Auto) 8 Eos % (Auto) 3 Baso % (Auto) 0 Neut # (Auto) 9.5 H Lymph # (Auto) 2.3 [place] # (Auto) 1.0 H Eos # (Auto) 0.4 Baso # (Auto) 0.0 Immature Gran # (Auto) 0.04 H Absolute Nucleated RBC 0.00 Immature Gran % 0 Nucleated RBC % 0 Sodium 143 Potassium 3.8 Chloride 107 Carbon Dioxide 25.2 Anion Gap 11 BUN 17 Creatinine 1.2 Estim Creat Clear Calc 91.9 eGFR > 60 BUN/Creatinine Ratio 14 Glucose 95 Calculated Osmolality 286 Calcium 8.8 Quality Measures Quality Measures none Assessment & Plan Assessment Current Active Medications: Generic Name Dose Route Start Last Admin Trade Name Freq PRN Reason Stop Dose Admin Acetaminophen 650 mg 07/10/24 03:13 Acetaminophen 325 Mg Tablet PO 08/09/24 03:12 Q6H PRN PAIN OR FEVER > 101 Al Hydrox/Mg Hydrox/Simethicone 15 ml 07/10/24 21:00 07/11/24 05:31 Mg Hyd/Al Hyd/Shahla (Maalox Reg) Susp 30 Ml Udc PO 08/09/24 20:59 15 ml QID GUS Administration Amlodipine Besylate 10 mg 07/11/24 09:00 07/11/24 08:56 Amlodipine Besylate 5 Mg Tablet PO 08/10/24 08:59 10 mg QDAY GUS Administration Aspirin 81 mg 07/10/24 09:00 07/11/24 08:58 Aspirin Ec 81 Mg Tabec PO 08/09/24 08:59 81 mg QDAY GUS Administration Atorvastatin Calcium 40 mg 07/10/24 21:00 07/10/24 22:24 Atorvastatin Calcium 20 Mg Tablet PO 08/09/24 20:59 Not Given HS GUS Clopidogrel Bisulfate 75 mg 07/10/24 09:00 07/11/24 08:58 Clopidogrel Bisulfate 75 Mg Tablet PO 08/09/24 08:59 75 mg QDAY GUS Administration Labetalol HCl 10 mg 07/10/24 05:26 Labetalol Inj 5 Mg/Ml Vial 20 Ml IVP 08/09/24 05:59 Q4HR PRN SBP > 170 Losartan Potassium 50 mg 07/10/24 09:00 07/11/24 08:57 Losartan Potassium 25 Mg Tablet PO 08/09/24 08:59 50 mg QDAY GUS Administration Metoclopramide HCl 5 mg 07/10/24 03:20 Metoclopramide Inj 5 Mg/Ml Vial 2 Ml IVP 08/09/24 05:59 Q8HR PRN vomiting Protocol Pantoprazole Sodium 80 mg 07/10/24 21:00 07/11/24 08:58 Pantoprazole Inj 40 Mg Vial IV 08/09/24 20:59 80 mg BID GUS Administration Sucralfate 1 gm 07/11/24 12:00 Sucralfate 1 Gm Tablet PO 08/10/24 11:59 QID GUS Plan 46-year-old male with past medical history of recurrent CVA, meth use disorder, hypertension presenting to the ED with several bouts of hematemesis, admitted for for endoscopy with gastroenterology. #Acute GI bleed #Esophageal ulcers #Gastritis #Duodenitis DDx: Peptic ulcer disease versus variceal bleed Patient has no history of cirrhosis, likely peptic ulcer disease, exacerbated by medications including antiplatelets. Less likely variceal bleed as patient has no history of cirrhosis or portal hypertension. Patient also denies any alcohol consumption Hemoglobin trend 15.2 => 14 => 13.3 EGD results showed: Esophageal ulcers with oozing but no javon bleeding, gastritis severe duodenitis Plan: GI consult Dr. Larry is placed, appreciate recommendations Will continue Protonix 80 mg every 12 hours Maalox 15 g every 4 hours Sucralfate 1 g 4 times daily Monitor with morning labs Transfuse if hemoglobin goes below 7 or sharp decrease #Leukocytosis, likely reactive No possible source of infection, likely reactive leukocytosis in the setting of GI bleed Patient does not appear toxic, denies having any concerning symptoms for infection Physical exam largely negative CT abdomen pelvis does not show any acute process Urinalysis not show any signs of infection Chest x-ray negative for any active disease Plan: Continue to monitor, patient is afebrile #LUIS A, improving #Electrolyte abnormalities DDx prerenal versus renal versus postrenal Likely prerenal cause in the setting of GI bleed and hypovolemia. Will get ultrasound abdomen to evaluate kidney size, rule out kidney stones Gentle IV fluids resuscitation completed Plan: Replete electrolytes as necessary Renally dose medications as appropriate Follow-up with morning labs Avoid nephrotoxic drugs #History of CVA #History of hypertension #History of methamphetamine abuse #History of tobacco smoking Pending official med rec Plan: Continue aspirin and Plavix Hospital Management: Lines: PIV Diet: Clear liquid, advancing as tolerated Bowel: Not needed at this time GI prophylaxis: Protonix 80 every 12 DVT prophylaxis: SCD Dispo: Monitoring for diet tolerance, expected discharge in the next 24 hours Code: Full Patient seen and examined with attending Dr. Omari Muñoz, PGY-1 Attending Provider Attestation/Addendum Radha Coelho, , attest that I was physically present for the lopez portions of the service and evaluated the patient with the resident and I reviewed and discussed the case with the resident and agree with the resident's findings and plans of care as documented above Patient seen and evaluated this AM. No acute events overnight. EGD was done overnight showing many cratered esophageal ulcers with oozing blood in the proximal and midesophagus. Mild inflammation in the gastric antrum noted and diffusely moderately erythematous mucosa in the duodenal bulb. Patient does have severe duodenitis. Protonix was increased to 80 mg IV twice daily, with Carafate and Maalox. Patient is currently on clear liquid diet and to be advanced as tolerated. Hemoglobin has been stable thus far. Will continue to monitor closely and patient can be discharged likely within the next 24 hours if able to tolerate p.o. intake without issue.
[2024-07-11] MEDS: SUCRALFATE 1 GM TABLET PO ×3 (12:11→20:43)
[2024-07-11] MEDS: LORazepam 2 MG/ML VIAL 0.5 MG IVP (16:59)
--- NOTE | 2024-07-11 19:40 | ESPR_ITS ---
Documentation for date of: 07/11/24 Subjective Subjective Interval history: Patient evaluated hemoglobin hematocrit 13.4 and 40.1 Exam Vital Signs Temp Pulse Resp BP Pulse Ox O2 Del Method O2 Flow Rate 97.7 F 80 16 145/90 H 92 L Room Air 2 07/11/24 16:00 07/11/24 19:16 07/11/24 19:16 07/11/24 16:00 07/11/24 19:16 07/11/24 16:00 07/10/24 20:45 Objective Labs 07/11/24 05:15 07/11/24 05:15 Labs: Laboratory Results - last 24 hr 07/10/24 07/11/24 22:03 05:15 WBC 13.2 H RBC 4.64 Hgb 12.7 L 13.4 L Hct 37.5 L 40.1 L MCV 86 MCH 28.9 MCHC 33.4 RDW Std Deviation 42.4 Plt Count 305 D Neut % (Auto) 72 Lymph % (Auto) 17 [place] % (Auto) 8 Eos % (Auto) 3 Baso % (Auto) 0 Neut # (Auto) 9.5 H Lymph # (Auto) 2.3 [place] # (Auto) 1.0 H Eos # (Auto) 0.4 Baso # (Auto) 0.0 Immature Gran # (Auto) 0.04 H Absolute Nucleated RBC 0.00 Immature Gran % 0 Nucleated RBC % 0 Sodium 143 Potassium 3.8 Chloride 107 Carbon Dioxide 25.2 Anion Gap 11 BUN 17 Creatinine 1.2 Estim Creat Clear Calc 91.9 eGFR > 60 BUN/Creatinine Ratio 14 Glucose 95 Calculated Osmolality 286 Calcium 8.8 Impressions Impression: Multiple ulcers esophagus as a cause of bleeding Continue current management Assessment & Plan A&P Narrative # Coffee-ground hematemesis # Recent CVA with left-sided residual motor weakness # Methamphetamine abuse Plan N.p.o. IV Protonix Serial CBC Consent obtained for fiberoptic esophagogastroduodenoscopy with possible therapeutic intervention possible biopsy under intravenous moderate sedation and the patient has been scheduled for today Thank you for the opportunity to participate in the care of this patient Time Spent With Patient Time: Total time spent is greater than 50% in coordination of care (as documented) at patient's floor/unit and/or counseling patient:
[2024-07-11] MEDS: ATORVASTATIN CALCIUM 20 MG TABLET 40 MG PO (20:43)
[2024-07-11] MEDS: MELATONIN 3 MG TABLET 6 MG PO (22:16)
[2024-07-11] MEDS: ACETAMINOPHEN 325 MG TABLET 650 MG PO (22:16)
[2024-07-12] VITALS (11 sets, daily range): BP systolic 122–156; BP diastolic 74–101; PULSE 55–91; RESP 15–96; TEMP 36–36.9; O2SAT 91–98; BMI 12.0
[2024-07-12] MEDS: SUCRALFATE 1 GM TABLET PO ×4 (06:37→20:45)
[2024-07-12] MEDS: MG HYD/AL HYD/SIME (Maalox Reg) SUSP 30 ML UDC 15 ML PO ×4 (06:37→20:45)
[2024-07-12 07:34] LABS: Basophils % (Auto) 0 % (0-2.5); Eosinophils # (Auto) 0.5 Thou/mm3 (0.0-0.5); Eosinophils % (Auto) 5 % (0-10); Hematocrit 38.1 % (41.0-53.0); Hemoglobin 13.3 g/dL (13.5-16.0); Immature Granulocytes % (Auto) 0 % (0-0); Immature Granulocytes Auto 0.03 Thou/mm3 (0.00-0.00); Lymphocytes # (Auto) 2.3 Thou/mm3 (1.0-4.8); Lymphocytes % (Auto) 25 % (10-50); Mean Corpuscular HGB Conc 34.9 g/dl (31.0-37.0); Mean Corpuscular Hemoglobin 28.6 pg (25.0-35.0); Mean Corpuscular Volume 82 fL (80-100); Monocytes # (Auto) 0.8 Thou/mm3 (0.0-0.8); Monocytes % (Auto) 8 % (0-12); Neutrophils # (Auto) 5.7 Thou/mm3 (1.8-7.7); Neutrophils % (Auto) 62 % (37-80); Nucleated Red Blood Cell % 0 /100 WBC (0); Platelet Count 317 Thou/mm3 (140-440); RDW Standard Deviation 39.1 fL (35.1-43.9); Red Blood Count 4.65 Miln/mm3 (4.50-5.90); White Blood Count 9.3 Thou/mm3 (3.8-10.6)
[2024-07-12 07:55] LABS: Anion Gap 9 (7-16); BUN/Creatinine Ratio 12 Ratio (12-20); Blood Urea Nitrogen 14 mg/dL (9-23); Calcium 8.6 mg/dL (8.3-10.6); Carbon Dioxide 27.5 mMol/L (20.0-31.0); Chloride 104 mMol/L (98-107); Creatinine (Component) 1.2 mg/dL (0.6-1.3); Estimated Creatinine Clearance 91.9 mL/min (>60); Glucose 107 mg/dL (74-106); Osmolality,Calculated 279 (275-295); Potassium 3.8 mMol/L (3.4-5.1); Sodium 140 mMol/L (136-145); eGFR > 60 See Note
[2024-07-12] MEDS: PANTOPRAZOLE INJ 40 MG VIAL 80 MG IV ×2 (08:19→20:46)
[2024-07-12] MEDS: LOSARTAN POTASSIUM 25 MG TABLET 50 MG PO (08:20)
[2024-07-12] MEDS: ASPIRIN EC 81 MG TABEC PO (08:20)
[2024-07-12] MEDS: amLODIPine BESYLATE 5 MG TABLET 10 MG PO (08:20)
[2024-07-12] MEDS: CLOPIDOGREL BISULFATE 75 MG TABLET PO (08:21)
--- NOTE | 2024-07-12 09:11 | PC.SS ---
Pt was identified as a DC today, pt is from [facility] and requires Auth. SS reached out to Devi at [facility], SS submitted all appropriate documentation via [facility] to submit for auth.
--- NOTE | 2024-07-12 09:47 | ESDS_ITS ---
<Statement entered by Franklin Ronquillo MD - 07/17/24 15:12> I reviewed above note and agree with findings and plans. I have also personally examined the patient with medicine team and went over assessment and plan with medical team including mechanical engineering intern and resident physician. Planned Discharge Date 07/12/24 DS: Providers Provider Date of admission: 07/10/24 03:22 Primary care physician: Kajal Cardona MD Admitting Provider: Renny Schmidt MD Attending Provider on Admission: Radha Salcido DO Consults: 07/10/24 02:00 Consult to Gastroenterology Stat Comment: Hematemesis Consulting Provider: Norma Larry 07/10/24 14:23 Referral Physical Therapy Routine Comment: Physician Instructions: Attending Provider on DC: Franklin Ronquillo MD Discharging Provider: Clyde Birmingham MD DS: Diagnosis Problem List Completed Was Problem List Reviewed/Reconciled?: Yes Hospital Course Hospital Course Hospital course: Hospital Course: Mr Cheek is a 46-year-old male with past medical history of recurrent CVA, meth use disorder, hypertension presenting to the ED with several bouts of hematemesis, admitted for for endoscopy for furtehr evaluation. GI was consulted, recommendations appreciated. Patient underwent successful EGD, which showed 'Esophageal ulcers with oozing but no javon bleeding, gastritis severe duodenitis'. Hemoglobin trend 15.2 => 14 => 13.3 throughout hospitalization. Patient is advised to take Protonix 40mg twice a day, Maalox 15 g every 4 hours and Sucralfate 1 g 4 times daily, to be continued on discharge. Given recent history of stroke, GI has cleared the patient for continued DAPT with aspirin and plavix. Close follow up with Neurology, GI and PCP is strongly advised. Problems on this admission: - Acute GI bleed - Esophageal ulcers - Gastritis - Duodenitis - Leukocytosis, likely reactive - LUIS A, improving - Electrolyte abnormalities - History of CVA - History of hypertension - History of methamphetamine abuse - History of tobacco smoking Procedures: EGD : Esophageal ulcers with oozing but no javon bleeding, gastritis severe duodenitis. Discharge instructions: - Follow up with PCP within 1 week - Follow up with outpatient GI for GI bleed in the setting of DAPT use - Please continue aspirin and Plavix as prescribed for post stroke management - Follow up with Neurology outpatient for close monitoring - Continue home antihypertensives Losartan and Amlodipine. Hold Hydralazine until follow up with PCP as BP well controlled. - Continue all other home medications. - Advise transitioning from Ativan to Buspirone for alf management of Anxiety. Consider Zolpidem for insomnia. - Return to ED if symptoms worsen. We are grateful to be able to participate in Mr Cheek' care. We wish him the best. Plan of care discussed with attending Dr Ronquillo, - Clyde Birmingham M.D. PGY2 Disclaimer: Minor errors in wood getter may be present as this note was dictated using voice recognition software. Status at Discharge Cognitive/behavioral status at discharge: Stable and returned to baseline Time Spent with Patient Time attestation: Total time spent providing and/or coordinating discharge services: more than 50% Time spent: Greater than 30 minutes Exam Vital Signs Temp Pulse Resp BP Pulse Ox O2 Del Method O2 Flow Rate 98.4 F 55 L 18 156/74 H 96 Room Air 2 07/12/24 07:20 07/12/24 08:38 07/12/24 08:38 07/12/24 08:20 07/12/24 07:20 07/12/24 04:00 07/10/24 20:45 Narrative Exam General: Awake, Speech is slow but answers appropriately. Dysarthria. HEENT: Normocephalic, atraumatic, mucous membranes moist. Heart: Regular rate and rhythm, no murmurs. Lungs: Clear to auscultation with no wheezing or crackles. Abdomen: Soft, nondistended, nontender, positive bowel sounds. ?No guarding or rebound tenderness. Neurologic: Alert and oriented x3, strength in left extremities 1/5, clenched fist left side, Extremities: No edema. Skin: No rash or ecchymoses. Discharge Plan Plan Patient Disposition: Xfer Skilled Nsg Fac (SNF) Patient condition on transfer: Stable Care Plan Goals: - Follow up with PCP within 1 week - Follow up with outpatient GI for GI bleed in the setting of DAPT use - Please continue aspirin and Plavix as prescribed for post stroke management - Follow up with Neurology outpatient for close monitoring - Continue home antihypertensives Losartan and Amlodipine. Hold Hydralazine until follow up with PCP as BP well controlled. - Continue all other home medications. - Advise transitioning from Ativan to Buspirone for alf management of Anxiety. Consider Zolpidem for insomnia. - Return to ED if symptoms worsen. Prescriptions/Referrals Prescriptions/Med Rec: New clopidogrel 75 mg tablet 75 mg PO QDAY 30 Days Qty: 30 0RF Continued atorvastatin 20 mg Tablet 80 mg PO HS 30 Days Qty: 120 0RF clopidogrel 75 mg Tablet 75 mg PO QDAY 30 Days Qty: 30 0RF amlodipine 5 mg Tablet 10 mg PO QDAY 30 Days Qty: 60 0RF aspirin [Ecotrin Low Strength] 81 mg Tablet,Delayed Release (Dr/Ec) 81 mg PO QDAY 30 Days Qty: 30 0RF losartan 25 mg Tablet 50 mg PO QDAY 30 Days Qty: 60 0RF acetaminophen 325 mg tablet 650 mg PO Q6H PRN (Reason: fever or pain) lorazepam [Ativan] 0.5 mg tablet 0.5 mg PO Q12H PRN (Reason: agitation) bisacodyl [Dulcolax (bisacodyl)] 10 mg suppository 10 mg HI QDAY PRN (Reason: constipation) Rx Instructions: if no BM 8 hours after Milk of Mag admin magnesium hydroxide [Milk of Magnesia] 400 mg/5 mL suspension 30 ml PO QDAY PRN (Reason: constipation) Rx Instructions: if no bm x3 days Held hydralazine 50 mg tablet 50 mg PO TID 30 Days Qty: 90 0RF Hold Instructions: Resume on 07/19/24. Referrals: Kajal Cardona MD [Primary Care Provider] - Patient/Caregiver Discharge Instructions Discharge Activity: resume usual activities Education Materials: Bleeding Gastrointestinal, Controlling High Blood Pressure Print Language: Indonesian Stand Alone Forms: Cynthia Award Info., Patient Portal Info Letter Discharge Order Discharge Orders: Discharge (Routine); Ordered 07/12/24 Ordered By: Clyde Birmingham Quality Discharge Quality Measures VTE prophylaxis
--- NOTE | 2024-07-12 10:36 | PC.NURSE ---
Physical therapy at bed side
--- NOTE | 2024-07-12 13:16 | PC.SS ---
Pt is pending insurance auth for return to [facility], terry Quinonez at [facility] it was submitted this morning as urgent.
--- NOTE | 2024-07-12 18:23 | ESPR_ITS ---
Documentation for date of: 07/12/24 Subjective Subjective Interval history: Late entry for the note Case discussed in detail with the internal medicine team Okay to discharge with PPI on board Exam Vital Signs Temp Pulse Resp BP Pulse Ox O2 Del Method O2 Flow Rate 97.4 F 64 15 145/98 H 98 Room Air 2 07/12/24 16:00 07/12/24 16:00 07/12/24 16:00 07/12/24 16:00 07/12/24 16:00 07/12/24 16:00 07/10/24 20:45 Objective Labs 07/12/24 07:12 07/12/24 07:12 Labs: Laboratory Results - last 24 hr 07/12/24 07:12 WBC 9.3 RBC 4.65 Hgb 13.3 L Hct 38.1 L MCV 82 MCH 28.6 MCHC 34.9 RDW Std Deviation 39.1 Plt Count 317 Neut % (Auto) 62 Lymph % (Auto) 25 [place] % (Auto) 8 Eos % (Auto) 5 Baso % (Auto) 0 Neut # (Auto) 5.7 Lymph # (Auto) 2.3 [place] # (Auto) 0.8 Eos # (Auto) 0.5 Baso # (Auto) 0.0 Immature Gran # (Auto) 0.03 H Absolute Nucleated RBC 0.00 Immature Gran % 0 Nucleated RBC % 0 Sodium 140 Potassium 3.8 Chloride 104 Carbon Dioxide 27.5 Anion Gap 9 BUN 14 Creatinine 1.2 Estim Creat Clear Calc 91.9 eGFR > 60 BUN/Creatinine Ratio 12 Glucose 107 H Calculated Osmolality 279 Calcium 8.6 Impressions Impression: Ulcers mid and distal esophagus Okay to discharge on PPIs No GI follow-up needed Follow-up with the primary care physician Assessment & Plan A&P Narrative # Coffee-ground hematemesis # Recent CVA with left-sided residual motor weakness # Methamphetamine abuse Plan N.p.o. IV Protonix Serial CBC Consent obtained for fiberoptic esophagogastroduodenoscopy with possible therapeutic intervention possible biopsy under intravenous moderate sedation and the patient has been scheduled for today Thank you for the opportunity to participate in the care of this patient Time Spent With Patient Time: Total time spent is greater than 50% in coordination of care (as documented) at patient's floor/unit and/or counseling patient:
[2024-07-12] MEDS: ATORVASTATIN CALCIUM 20 MG TABLET 40 MG PO (20:45)
[2024-07-12] MEDS: LORazepam 0.5 MG TABLET PO (20:46)
[2024-07-12] MEDS: MELATONIN 3 MG TABLET 6 MG PO (20:46)
[2024-07-13] VITALS (9 sets, daily range): BP systolic 125–152; BP diastolic 69–96; PULSE 53–87; RESP 17–98; TEMP 36.1–36.5; O2SAT 92–97; BMI 11.0; BMI 26.5
[2024-07-13] MEDS: MG HYD/AL HYD/SIME (Maalox Reg) SUSP 30 ML UDC 15 ML PO ×4 (05:25→20:40)
[2024-07-13] MEDS: SUCRALFATE 1 GM TABLET PO ×4 (05:26→20:39)
[2024-07-13 06:32] LABS: Basophils % (Auto) 0 % (0-2.5); Eosinophils # (Auto) 0.4 Thou/mm3 (0.0-0.5); Eosinophils % (Auto) 5 % (0-10); Hematocrit 39.5 % (41.0-53.0); Hemoglobin 13.2 g/dL (13.5-16.0); Immature Granulocytes % (Auto) 0 % (0-0); Immature Granulocytes Auto 0.03 Thou/mm3 (0.00-0.00); Lymphocytes # (Auto) 2.4 Thou/mm3 (1.0-4.8); Lymphocytes % (Auto) 27 % (10-50); Mean Corpuscular HGB Conc 33.4 g/dl (31.0-37.0); Mean Corpuscular Hemoglobin 28.6 pg (25.0-35.0); Mean Corpuscular Volume 86 fL (80-100); Monocytes # (Auto) 0.7 Thou/mm3 (0.0-0.8); Monocytes % (Auto) 8 % (0-12); Neutrophils # (Auto) 5.4 Thou/mm3 (1.8-7.7); Neutrophils % (Auto) 60 % (37-80); Nucleated Red Blood Cell % 0 /100 WBC (0); Platelet Count 305 Thou/mm3 (140-440); RDW Standard Deviation 39.9 fL (35.1-43.9); Red Blood Count 4.62 Miln/mm3 (4.50-5.90); White Blood Count 8.9 Thou/mm3 (3.8-10.6)
[2024-07-13 07:25] LABS: Anion Gap 9 (7-16); BUN/Creatinine Ratio 10 Ratio (12-20); Blood Urea Nitrogen 12 mg/dL (9-23); Calcium 8.7 mg/dL (8.3-10.6); Carbon Dioxide 28.5 mMol/L (20.0-31.0); Chloride 104 mMol/L (98-107); Creatinine (Component) 1.2 mg/dL (0.6-1.3); Estimated Creatinine Clearance 91.9 mL/min (>60); Glucose 101 mg/dL (74-106); Osmolality,Calculated 280 (275-295); Potassium 4.1 mMol/L (3.4-5.1); Sodium 141 mMol/L (136-145); eGFR > 60 See Note
[2024-07-13] MEDS: amLODIPine BESYLATE 5 MG TABLET 10 MG PO (08:28)
[2024-07-13] MEDS: ASPIRIN EC 81 MG TABEC PO (08:28)
[2024-07-13] MEDS: PANTOPRAZOLE INJ 40 MG VIAL 80 MG IV ×2 (08:28→20:44)
[2024-07-13] MEDS: LOSARTAN POTASSIUM 25 MG TABLET 50 MG PO (08:28)
[2024-07-13] MEDS: CLOPIDOGREL BISULFATE 75 MG TABLET PO (08:28)
[2024-07-13] MEDS: IRON SUCROSE CPLX INJ 20 MG/ML VIAL 5 ML 200 MG IVP (08:56)
[2024-07-13] MEDS: LORazepam 0.5 MG TABLET PO ×2 (11:02→22:39)
--- NOTE | 2024-07-13 13:26 | ESPR_ITS ---
<Statement entered by Franklin Ronquillo MD - 07/18/24 16:23> I reviewed above note and agree with findings and plans. I have also personally examined the patient with medicine team and went over assessment and plan with medical team including internet marketing intern and resident physician. Documentation for date of: 07/13/24 Subjective Subjective Interval history: Patient was seen and examined at bedside this AM. No acute events overnight. Patient tolerating liquid diet, s/p EGD completed with GI on 07/10 which showed multiple esophageal ulcers with oozing, gastritis and severe duodenitis. Will advance diet to dysphagia 2 GERD/PUD from lunch. Gastroenterology recommends Protonix 80 mg every 12 hours, sucralfate 1 g 4 times daily, Maalox Restarted DAPT for post stroke. Hb holding. Will give IV iron for supportive measures. Patient is anxious to be discharged back to SNF. Pending insurance authorization, will DC on Saturday 07/15 Exam Vital Signs Temp Pulse Resp BP Pulse Ox O2 Del Method O2 Flow Rate 97.1 F 71 18 151/87 H 94 L Nasal Cannula 2 07/13/24 12:00 07/13/24 12:00 07/13/24 12:00 07/13/24 12:00 07/13/24 12:00 07/13/24 12:00 07/13/24 00:00 Narrative Exam Constitutional Alert, oriented x2 and comfortable HEENT Vision grossly intact. Patent nares. Trachea midline. Slurred speech/dysarthria Respiratory Chest normal on inspection and clear to auscultation bilaterally. Cardiovascular S1 and S2 audible, RRR. No murmurs or carotid bruit. No gross JVD. Abdominal Soft and BS + ; non tender to palpation in all quadrants. Genitourinary No bladder tenderness, no flank pain. Normal to palpation. Musculoskeletal Extremities tone within normal limits. No LE edema. Neurological CN II - XII grossly intact. Strength in left LE and UE 1/5. Normal RUE and RLE. Skin Warm, dry and intact. No apparent lesions. Psychiatric Patient has a good affect, is cooperative but agitated. Objective Labs 07/13/24 04:52 07/13/24 04:52 Labs: Laboratory Results - last 24 hr 07/13/24 04:52 WBC 8.9 RBC 4.62 Hgb 13.2 L Hct 39.5 L MCV 86 MCH 28.6 MCHC 33.4 RDW Std Deviation 39.9 Plt Count 305 Neut % (Auto) 60 Lymph % (Auto) 27 [place] % (Auto) 8 Eos % (Auto) 5 Baso % (Auto) 0 Neut # (Auto) 5.4 Lymph # (Auto) 2.4 [place] # (Auto) 0.7 Eos # (Auto) 0.4 Baso # (Auto) 0.0 Immature Gran # (Auto) 0.03 H Absolute Nucleated RBC 0.00 Immature Gran % 0 Nucleated RBC % 0 Sodium 141 Potassium 4.1 Chloride 104 Carbon Dioxide 28.5 Anion Gap 9 BUN 12 Creatinine 1.2 Estim Creat Clear Calc 91.9 eGFR > 60 BUN/Creatinine Ratio 10 L Glucose 101 Calculated Osmolality 280 Calcium 8.7 Quality Measures Quality Measures VTE prophylaxis Assessment & Plan Assessment Current Active Medications: Generic Name Dose Route Start Last Admin Trade Name Freq PRN Reason Stop Dose Admin Acetaminophen 650 mg 07/10/24 03:13 07/11/24 22:16 Acetaminophen 325 Mg Tablet PO 08/09/24 03:12 650 mg Q6H PRN Administration PAIN OR FEVER > 101 Al Hydrox/Mg Hydrox/Simethicone 15 ml 07/10/24 21:00 07/13/24 11:02 Mg Hyd/Al Hyd/Shahla (Maalox Reg) Susp 30 Ml Udc PO 08/09/24 20:59 15 ml QID GUS Administration Amlodipine Besylate 10 mg 07/11/24 09:00 07/13/24 08:28 Amlodipine Besylate 5 Mg Tablet PO 08/10/24 08:59 10 mg QDAY GUS Administration Aspirin 81 mg 07/10/24 09:00 07/13/24 08:28 Aspirin Ec 81 Mg Tabec PO 08/09/24 08:59 81 mg QDAY GUS Administration Atorvastatin Calcium 40 mg 07/10/24 21:00 07/12/24 20:45 Atorvastatin Calcium 20 Mg Tablet PO 08/09/24 20:59 40 mg HS GUS Administration Clopidogrel Bisulfate 75 mg 07/10/24 09:00 07/13/24 08:28 Clopidogrel Bisulfate 75 Mg Tablet PO 08/09/24 08:59 75 mg QDAY GUS Administration Iron Sucrose 200 mg 07/13/24 09:00 07/13/24 08:56 Iron Sucrose Cplx Inj 20 Mg/Ml Vial 5 Ml IVP 07/17/24 08:59 200 mg DAILY GUS Administration Labetalol HCl 10 mg 07/10/24 05:26 Labetalol Inj 5 Mg/Ml Vial 20 Ml IVP 08/09/24 05:59 Q4HR PRN SBP > 170 Lorazepam 0.5 mg 07/12/24 02:49 07/13/24 11:02 Lorazepam 0.5 Mg Tablet PO 07/17/24 02:48 0.5 mg Q12HR PRN Administration AGITATION Losartan Potassium 50 mg 07/10/24 09:00 07/13/24 08:28 Losartan Potassium 25 Mg Tablet PO 08/09/24 08:59 50 mg QDAY GUS Administration Melatonin 6 mg 07/11/24 22:00 07/12/24 20:46 Melatonin 3 Mg Tablet PO 08/10/24 21:59 6 mg HS GUS Administration Metoclopramide HCl 5 mg 07/10/24 03:20 Metoclopramide Inj 5 Mg/Ml Vial 2 Ml IVP 08/09/24 05:59 Q8HR PRN vomiting Protocol Pantoprazole Sodium 80 mg 07/10/24 21:00 07/13/24 08:28 Pantoprazole Inj 40 Mg Vial IV 08/09/24 20:59 80 mg BID GUS Administration Sucralfate 1 gm 07/11/24 12:00 07/13/24 11:02 Sucralfate 1 Gm Tablet PO 08/10/24 11:59 1 gm QID GUS Administration Plan Mr Cheek is a 46-year-old male with past medical history of recurrent CVA, meth use disorder, hypertension presenting to the ED with several bouts of hematemesis, admitted for for endoscopy with gastroenterology. Acute GI bleed secondary to Esophageal ulcers Gastritis Duodenitis DDx: Peptic ulcer disease versus variceal bleed Patient has no history of cirrhosis, likely peptic ulcer disease, exacerbated by medications including antiplatelets. Less likely variceal bleed as patient has no history of cirrhosis or portal hypertension. Patient also denies any alcohol consumption Hemoglobin trend 15.2 => 14 => 13.3 EGD 07/10 : Esophageal ulcers with oozing but no javon bleeding, gastritis severe duodenitis Plan: - GI consult Dr. Larry is placed, appreciate recommendations - On Protonix 80 mg every 12 hours - Maalox 15 g every 4 hours - Sucralfate 1 g 4 times daily - Will advance diet from liquids --> dysphagia 2 GERD/PUD - Transfuse if hemoglobin goes below 7 or sharp decrease History of CVA History of hypertension History of methamphetamine abuse History of tobacco smoking Pending official med rec Plan: - Resumed DAPT as cleared by GI - On aspirin + Plavix Leukocytosis, likely reactive - resolved Patient does not appear toxic, denies having any concerning symptoms for infection. Physical exam largely negative. Patient is afebrile CT abdomen pelvis does not show any acute process. Urinalysis not show any signs of infection. Chest x-ray negative for any active disease LUIS A, improving - resolved Electrolyte abnormalities Plan: - Replete electrolytes as necessary - Renally dose medications as appropriate - Avoid nephrotoxic drugs Hospital Management: Dispo: Med Surg. Pending insurance authorization, will DC on Saturday 07/15 Lines: PIV Diet: Clear liquid, advancing as tolerated Bowel: Not needed at this time GI prophylaxis: Protonix 80 every 12 DVT prophylaxis: SCD Code: Full Plan of care discussed with attending Dr Ronquillo, - Clyde Birmingham M.D. PGY2 Disclaimer: Minor errors in supervisor carbon electrodes may be present as this note was dictated using voice recognition software.
--- NOTE | 2024-07-13 15:10 | PC.SS ---
SS contacted [facility] SNF and she stated she has not received insurance auth for SNF placement. SS contacted [facility] [phone] and was informed auth. will be provided 72hrs. from 07/12/24.
--- NOTE | 2024-07-13 19:35 | ESPR_ITS ---
Documentation for date of: 07/13/24 Subjective Subjective Interval history: Patient evaluated Hemoglobin hematocrit stable Waiting for insurance authorization to be placed in SNF Exam Vital Signs Temp Pulse Resp BP Pulse Ox O2 Del Method O2 Flow Rate 97.1 F 75 18 136/87 H 94 L Room Air 2 07/13/24 15:59 07/13/24 16:00 07/13/24 15:59 07/13/24 15:59 07/13/24 15:59 07/13/24 15:59 07/13/24 00:00 Objective Labs 07/13/24 04:52 07/13/24 04:52 Labs: Laboratory Results - last 24 hr 07/13/24 04:52 WBC 8.9 RBC 4.62 Hgb 13.2 L Hct 39.5 L MCV 86 MCH 28.6 MCHC 33.4 RDW Std Deviation 39.9 Plt Count 305 Neut % (Auto) 60 Lymph % (Auto) 27 [place] % (Auto) 8 Eos % (Auto) 5 Baso % (Auto) 0 Neut # (Auto) 5.4 Lymph # (Auto) 2.4 [place] # (Auto) 0.7 Eos # (Auto) 0.4 Baso # (Auto) 0.0 Immature Gran # (Auto) 0.03 H Absolute Nucleated RBC 0.00 Immature Gran % 0 Nucleated RBC % 0 Sodium 141 Potassium 4.1 Chloride 104 Carbon Dioxide 28.5 Anion Gap 9 BUN 12 Creatinine 1.2 Estim Creat Clear Calc 91.9 eGFR > 60 BUN/Creatinine Ratio 10 L Glucose 101 Calculated Osmolality 280 Calcium 8.7 Impressions Impression: Esophageal ulceration GI bleed secondary to above Continue PPIs Assessment & Plan A&P Narrative # Coffee-ground hematemesis # Recent CVA with left-sided residual motor weakness # Methamphetamine abuse Plan N.p.o. IV Protonix Serial CBC Consent obtained for fiberoptic esophagogastroduodenoscopy with possible therapeutic intervention possible biopsy under intravenous moderate sedation and the patient has been scheduled for today Thank you for the opportunity to participate in the care of this patient Time Spent With Patient Time: Total time spent is greater than 50% in coordination of care (as documented) at patient's floor/unit and/or counseling patient:
[2024-07-13] MEDS: MELATONIN 3 MG TABLET 6 MG PO (20:39)
[2024-07-13] MEDS: ATORVASTATIN CALCIUM 20 MG TABLET 40 MG PO (20:39)
[2024-07-14] VITALS (7 sets, daily range): BP systolic 125–159; BP diastolic 76–96; PULSE 70–88; RESP 18–20; TEMP 36.3–36.6; O2SAT 92–96
--- NOTE | 2024-07-14 07:08 | ESPR_ITS ---
<Statement entered by Franklin Ronquillo MD - 07/18/24 16:24> I reviewed above note and agree with findings and plans. I have also personally examined the patient with medicine team and went over assessment and plan with medical team including consultants intern and resident physician. Documentation for date of: 07/14/24 Subjective Subjective Interval history: 07/14/2024: Patient seen and examined; reporting no concerning symptoms at this time. Patient's BP on higher side; will increase Losartan to 100mg po daily. Patient is pending approval to be sent back to [facility]. Exam Vital Signs Temp Pulse Resp BP Pulse Ox O2 Del Method O2 Flow Rate 97.0 F 76 19 152/96 H 92 L Room Air 2 07/13/24 20:00 07/13/24 20:00 07/13/24 20:00 07/13/24 20:00 07/13/24 20:00 07/14/24 04:00 07/13/24 00:00 Narrative Exam Constitutional Alert, oriented x2 and comfortable HEENT Vision grossly intact. Patent nares. Trachea midline. Slurred speech/dysarthria Respiratory Chest normal on inspection and clear to auscultation bilaterally. Cardiovascular S1 and S2 audible, RRR. No murmurs or carotid bruit. No gross JVD. Abdominal Soft and BS + ; non tender to palpation in all quadrants. Genitourinary No bladder tenderness, no flank pain. Normal to palpation. Musculoskeletal Extremities tone within normal limits. No LE edema. Neurological CN II - XII grossly intact. Strength in left LE and UE 1/5. Normal RUE and RLE. Skin Warm, dry and intact. No apparent lesions. Psychiatric Patient has a good affect, is cooperative but agitated. Objective Labs 07/13/24 04:52 07/13/24 04:52 Labs: Laboratory Results - last 24 hr 07/13/24 04:52 Sodium 141 Potassium 4.1 Chloride 104 Carbon Dioxide 28.5 Anion Gap 9 BUN 12 Creatinine 1.2 Estim Creat Clear Calc 91.9 eGFR > 60 BUN/Creatinine Ratio 10 L Glucose 101 Calculated Osmolality 280 Calcium 8.7 Quality Measures Quality Measures VTE prophylaxis Assessment & Plan Assessment Current Active Medications: Generic Name Dose Route Start Last Admin Trade Name Freq PRN Reason Stop Dose Admin Acetaminophen 650 mg 07/10/24 03:13 07/11/24 22:16 Acetaminophen 325 Mg Tablet PO 08/09/24 03:12 650 mg Q6H PRN Administration PAIN OR FEVER > 101 Al Hydrox/Mg Hydrox/Simethicone 15 ml 07/10/24 21:00 07/14/24 06:17 Mg Hyd/Al Hyd/Shahla (Maalox Reg) Susp 30 Ml Udc PO 08/09/24 20:59 Not Given QID GUS Amlodipine Besylate 10 mg 07/11/24 09:00 07/13/24 08:28 Amlodipine Besylate 5 Mg Tablet PO 08/10/24 08:59 10 mg QDAY GUS Administration Aspirin 81 mg 07/10/24 09:00 07/13/24 08:28 Aspirin Ec 81 Mg Tabec PO 08/09/24 08:59 81 mg QDAY GUS Administration Atorvastatin Calcium 40 mg 07/10/24 21:00 07/13/24 20:39 Atorvastatin Calcium 20 Mg Tablet PO 08/09/24 20:59 40 mg HS GUS Administration Clopidogrel Bisulfate 75 mg 07/10/24 09:00 07/13/24 08:28 Clopidogrel Bisulfate 75 Mg Tablet PO 08/09/24 08:59 75 mg QDAY GUS Administration Iron Sucrose 200 mg 07/13/24 09:00 07/13/24 08:56 Iron Sucrose Cplx Inj 20 Mg/Ml Vial 5 Ml IVP 07/17/24 08:59 200 mg DAILY GUS Administration Labetalol HCl 10 mg 07/10/24 05:26 Labetalol Inj 5 Mg/Ml Vial 20 Ml IVP 08/09/24 05:59 Q4HR PRN SBP > 170 Lorazepam 0.5 mg 07/12/24 02:49 07/13/24 22:39 Lorazepam 0.5 Mg Tablet PO 07/17/24 02:48 0.5 mg Q12HR PRN Administration AGITATION Losartan Potassium 50 mg 07/10/24 09:00 07/13/24 08:28 Losartan Potassium 25 Mg Tablet PO 08/09/24 08:59 50 mg QDAY GUS Administration Melatonin 6 mg 07/11/24 22:00 07/13/24 20:39 Melatonin 3 Mg Tablet PO 08/10/24 21:59 6 mg HS GUS Administration Metoclopramide HCl 5 mg 07/10/24 03:20 Metoclopramide Inj 5 Mg/Ml Vial 2 Ml IVP 08/09/24 05:59 Q8HR PRN vomiting Protocol Pantoprazole Sodium 80 mg 07/10/24 21:00 07/13/24 20:44 Pantoprazole Inj 40 Mg Vial IV 08/09/24 20:59 80 mg BID GUS Administration Sucralfate 1 gm 07/11/24 12:00 07/14/24 06:18 Sucralfate 1 Gm Tablet PO 08/10/24 11:59 Not Given QID GUS Plan Mr Cheek is a 46-year-old male with past medical history of recurrent CVA, meth use disorder, hypertension presenting to the ED with several bouts of hematemesis, admitted for for endoscopy with gastroenterology. Acute GI bleed secondary to Esophageal ulcers Gastritis Duodenitis DDx: Peptic ulcer disease versus variceal bleed Patient has no history of cirrhosis, likely peptic ulcer disease, exacerbated by medications including antiplatelets. Less likely variceal bleed as patient has no history of cirrhosis or portal hypertension. Patient also denies any alcohol consumption Hemoglobin trend 15.2 => 14 => 13.3 EGD 07/10 : Esophageal ulcers with oozing but no javon bleeding, gastritis severe duodenitis Plan: - GI consult Dr. Larry is placed, appreciate recommendations - On Protonix 80 mg every 12 hours - Maalox 15 g every 4 hours - Sucralfate 1 g 4 times daily - Will advance diet from liquids --> dysphagia 2 GERD/PUD - Transfuse if hemoglobin goes below 7 or sharp decrease History of CVA History of hypertension History of methamphetamine abuse History of tobacco smoking Pending official med rec Plan: - Resumed DAPT as cleared by GI - On aspirin + Plavix - Increased patient's Losartan to 100 mg po daily and continuing amlodipine 10 mg po daily Leukocytosis, likely reactive - resolved Patient does not appear toxic, denies having any concerning symptoms for infection. Physical exam largely negative. Patient is afebrile CT abdomen pelvis does not show any acute process. Urinalysis not show any signs of infection. Chest x-ray negative for any active disease LUIS A, improving - resolved Electrolyte abnormalities Plan: - Replete electrolytes as necessary - Renally dose medications as appropriate - Avoid nephrotoxic drugs Hospital Management: Dispo: Med Surg. Pending insurance authorization, will DC on Saturday 07/15 Lines: PIV Diet: Clear liquid, advancing as tolerated Bowel: Not needed at this time GI prophylaxis: Protonix 80 every 12 DVT prophylaxis: SCD Code: Full Patient seen and examined with attending Dr. Yg Muñoz, PGY-1
[2024-07-14] MEDS: LOSARTAN POTASSIUM 25 MG TABLET 100 MG PO (07:55)
[2024-07-14] MEDS: CLOPIDOGREL BISULFATE 75 MG TABLET PO (07:56)
[2024-07-14] MEDS: PANTOPRAZOLE INJ 40 MG VIAL 80 MG IV ×2 (07:56→20:54)
[2024-07-14] MEDS: amLODIPine BESYLATE 5 MG TABLET 10 MG PO (07:56)
[2024-07-14] MEDS: ASPIRIN EC 81 MG TABEC PO (07:56)
[2024-07-14] MEDS: IRON SUCROSE CPLX INJ 20 MG/ML VIAL 5 ML 200 MG IVP (09:40)
[2024-07-14] MEDS: MG HYD/AL HYD/SIME (Maalox Reg) SUSP 30 ML UDC 15 ML PO ×3 (12:20→20:54)
[2024-07-14] MEDS: SUCRALFATE 1 GM TABLET PO ×3 (12:40→20:53)
[2024-07-14] MEDS: LORazepam 0.5 MG TABLET PO (14:45)
--- NOTE | 2024-07-14 16:49 | PC.NURSE ---
[facility] on 07/14/2024 from [phone].
[2024-07-14] MEDS: ATORVASTATIN CALCIUM 20 MG TABLET 40 MG PO (20:54)
[2024-07-14] MEDS: MELATONIN 3 MG TABLET 6 MG PO (20:54)
--- NOTE | 2024-07-14 21:29 | PD.IMPROG ---
Documentation for date of: 07/14/24 Subjective Subjective Interval history: Hemoglobin hematocrit 13.2 and 39.5 Exam Vital Signs Temp Pulse Resp BP Pulse Ox O2 Del Method O2 Flow Rate 98 F 88 20 125/76 92 L Room Air 2 07/14/24 20:00 07/14/24 20:00 07/14/24 20:00 07/14/24 20:00 07/14/24 20:00 07/14/24 20:00 07/13/24 00:00 Objective Labs 07/13/24 04:52 07/13/24 04:52 Impressions Impression: Esophageal ulceration Stable hemoglobin hematocrit Continue current management Assessment & Plan A&P Narrative # Coffee-ground hematemesis # Recent CVA with left-sided residual motor weakness # Methamphetamine abuse Plan N.p.o. IV Protonix Serial CBC Consent obtained for fiberoptic esophagogastroduodenoscopy with possible therapeutic intervention possible biopsy under intravenous moderate sedation and the patient has been scheduled for today Thank you for the opportunity to participate in the care of this patient Time Spent With Patient Time: Total time spent is greater than 50% in coordination of care (as documented) at patient's floor/unit and/or counseling patient:
[2024-07-14] MEDS: Milk Of Magnesia Susp 30 ML UDC PO (22:19)
[2024-07-15] VITALS (8 sets, daily range): BP systolic 123–152; BP diastolic 61–99; PULSE 63–74; RESP 16–18; TEMP 36–36.5; O2SAT 94–97
[2024-07-15] MEDS: LORazepam 0.5 MG TABLET PO ×2 (03:50→17:09)
[2024-07-15] MEDS: ACETAMINOPHEN 325 MG TABLET 650 MG PO (03:51)
[2024-07-15] MEDS: SUCRALFATE 1 GM TABLET PO ×3 (05:05→17:09)
[2024-07-15] MEDS: MG HYD/AL HYD/SIME (Maalox Reg) SUSP 30 ML UDC 15 ML PO ×3 (05:05→17:09)
[2024-07-15] MEDS: CLOPIDOGREL BISULFATE 75 MG TABLET PO (08:28)
[2024-07-15] MEDS: LOSARTAN POTASSIUM 25 MG TABLET 100 MG PO (08:28)
[2024-07-15] MEDS: ASPIRIN EC 81 MG TABEC PO (08:28)
[2024-07-15] MEDS: amLODIPine BESYLATE 5 MG TABLET 10 MG PO (08:28)
[2024-07-15] MEDS: PANTOPRAZOLE INJ 40 MG VIAL 80 MG IV (08:29)
[2024-07-15] MEDS: IRON SUCROSE CPLX INJ 20 MG/ML VIAL 5 ML 200 MG IVP (08:29)
--- NOTE | 2024-07-15 09:38 | PD.IMPROG ---
Documentation for date of: 07/15/24 Subjective Subjective Interval history: Stable hemoglobin hematocrit okay to discharge patient To be followed by the PCP Exam Vital Signs Temp Pulse Resp BP Pulse Ox O2 Del Method O2 Flow Rate 96.8 F 65 18 147/96 H 96 Room Air 2 07/15/24 07:39 07/15/24 08:28 07/15/24 07:39 07/15/24 08:28 07/15/24 07:39 07/15/24 07:39 07/13/24 00:00 Objective Labs 07/13/24 04:52 07/13/24 04:52 Impressions Impression: Esophageal ulceration stable hemoglobin hematocrit okay to discharge patient to be followed by the PCP Assessment & Plan A&P Narrative # Coffee-ground hematemesis # Recent CVA with left-sided residual motor weakness # Methamphetamine abuse Plan N.p.o. IV Protonix Serial CBC Consent obtained for fiberoptic esophagogastroduodenoscopy with possible therapeutic intervention possible biopsy under intravenous moderate sedation and the patient has been scheduled for today Thank you for the opportunity to participate in the care of this patient Time Spent With Patient Time: Total time spent is greater than 50% in coordination of care (as documented) at patient's floor/unit and/or counseling patient:
--- NOTE | 2024-07-15 09:52 | ESDS_ITS ---
<Statement entered by Franklin Ronquillo MD - 07/18/24 16:25> I reviewed above note and agree with findings and plans. I have also personally examined the patient with medicine team and went over assessment and plan with medical team including manager of international and resident physician. <Statement entered by Clyde Birimngham MD - 07/15/24 17:54> Patient was examined with the team including attending physician. Note reviewed, I agree with the discharge plan as documented. - Clyde Birmingham MD PGY2 Disclaimer: The document may contain phonetic/typographic errors due to voice recognition software. These errors are purely due to imperfections in the software program and should not be misconstrued in any way to compromise the garcia bstance of the patient's medical care during this visit. Planned Discharge Date 07/15/24 DS: Providers Provider Date of admission: 07/10/24 03:22 Primary care physician: Kajal Cardona MD Admitting Provider: Renny Schmidt MD Attending Provider on Admission: Franklin Ronquillo MD Consults: 07/10/24 02:00 Consult to Gastroenterology Stat Comment: Hematemesis Consulting Provider: Norma Larry 07/10/24 14:23 Referral Physical Therapy Routine Comment: Physician Instructions: Attending Provider on DC: Hai Muñoz MD Discharging Provider: Hai Muñoz MD DS: Diagnosis Problem List Completed Was Problem List Reviewed/Reconciled?: Yes Hospital Course Hospital Course Hospital course: 46-year-old male with past medical history of recurrent CVA, meth use disorder, hypertension presenting to the ED with several bouts of hematemesis, admitted for for endoscopy for furtehr evaluation. GI was consulted, recommendations appreciated. Patient underwent successful EGD, which showed 'Esophageal ulcers with oozing but no javon bleeding, gastritis severe duodenitis'. Hemoglobin trend 15.2 => 14 => 13.3 throughout hospitalization. Patient is advised to take Protonix 40mg twice a day, Maalox 15 g every 4 hours and Sucralfate 1 g 4 times daily, to be continued on discharge. Given recent history of stroke, GI has cleared the patient for continued DAPT with aspirin and plavix. Close follow up with Neurology, GI and PCP is strongly advised. Problems on this admission: - Acute GI bleed - Esophageal ulcers - Gastritis - Duodenitis - Leukocytosis, likely reactive - LUIS A, improving - Electrolyte abnormalities - History of CVA - History of hypertension - History of methamphetamine abuse - History of tobacco smoking Procedures: EGD : Esophageal ulcers with oozing but no javon bleeding, gastritis severe duodenitis. Instructions: - Follow up with PCP within 1 week - Follow up with outpatient GI for GI bleed in the setting of DAPT use - Please continue aspirin and Plavix as prescribed for post stroke management - Follow up with Neurology outpatient for close monitoring - Continue home antihypertensives Losartan and Amlodipine. Hold Hydralazine until follow up with PCP as BP well controlled. - Continue all other home medications. 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 Consider Zolpidem for insomnia. - Return to ED if symptoms worsen. Hai Muñoz, PGY-1 Status at Discharge Overall status at discharge: patient is progressing back to baseline Time Spent with Patient Time attestation: Total time spent providing and/or coordinating discharge services: 45 minutes Time spent: Greater than 30 minutes Exam Vital Signs Temp Pulse Resp BP Pulse Ox O2 Del Method O2 Flow Rate 96.8 F 65 18 147/96 H 96 Room Air 2 07/15/24 07:39 07/15/24 08:28 07/15/24 07:39 07/15/24 08:28 07/15/24 07:39 07/15/24 07:39 07/13/24 00:00 Narrative Exam Constitutional Alert, oriented x2 and comfortable HEENT Vision grossly intact. Patent nares. Trachea midline. Slurred speech/dysarthria Respiratory Chest normal on inspection and clear to auscultation bilaterally. Cardiovascular S1 and S2 audible, RRR. No murmurs or carotid bruit. No gross JVD. Abdominal Soft and BS + ; non tender to palpation in all quadrants. Genitourinary No bladder tenderness, no flank pain. Normal to palpation. Musculoskeletal Extremities tone within normal limits. No LE edema. Neurological CN II - XII grossly intact. Strength in left LE and UE 1/5. Normal RUE and RLE. Skin Warm, dry and intact. No apparent lesions. Psychiatric Patient has a good affect, is cooperative. Discharge Plan Plan Patient Disposition: Xfer Skilled Nsg Fac (SNF) Patient condition on transfer: Stable Care Plan Goals: - Follow up with PCP within 1 week - Follow up with outpatient GI for GI bleed in the setting of DAPT use - Please continue aspirin and Plavix as prescribed for post stroke management - Follow up with Neurology outpatient for close monitoring - Continue home antihypertensives Losartan and Amlodipine. Hold Hydralazine until follow up with PCP as BP well controlled. - Continue all other home medications. - Advise transitioning from Ativan to Buspirone for detention management of Anxiety. Consider Zolpidem for insomnia. - Return to ED if symptoms worsen. Prescriptions/Referrals Prescriptions/Med Rec: New clopidogrel 75 mg tablet 75 mg PO QDAY 30 Days Qty: 30 0RF Continued atorvastatin 20 mg Tablet 80 mg PO HS 30 Days Qty: 120 0RF clopidogrel 75 mg Tablet 75 mg PO QDAY 30 Days Qty: 30 0RF amlodipine 5 mg Tablet 10 mg PO QDAY 30 Days Qty: 60 0RF aspirin [Ecotrin Low Strength] 81 mg Tablet,Delayed Release (Dr/Ec) 81 mg PO QDAY 30 Days Qty: 30 0RF losartan 25 mg Tablet 50 mg PO QDAY 30 Days Qty: 60 0RF acetaminophen 325 mg tablet 650 mg PO Q6H PRN (Reason: fever or pain) lorazepam [Ativan] 0.5 mg tablet 0.5 mg PO Q12H PRN (Reason: agitation) bisacodyl [Dulcolax (bisacodyl)] 10 mg suppository 10 mg MS QDAY PRN (Reason: constipation) Rx Instructions: if no BM 8 hours after Milk of Mag admin magnesium hydroxide [Milk of Magnesia] 400 mg/5 mL suspension 30 ml PO QDAY PRN (Reason: constipation) Rx Instructions: if no bm x3 days Held hydralazine 50 mg tablet 50 mg PO TID 30 Days Qty: 90 0RF Hold Instructions: Resume on 07/19/24. Referrals: Kajal Cardona MD [Primary Care Provider] - Patient/Caregiver Discharge Instructions Discharge Activity: resume usual activities Education Materials: Bleeding Gastrointestinal, Controlling High Blood Pressure Print Language: Urdu Stand Alone Forms: Cynthia Award Info., Patient Portal Info Letter Discharge Order Discharge Orders: Discharge (Routine); Ordered 07/15/24 Ordered By: Hai Muñoz Quality Discharge Quality Measures VTE prophylaxis
--- NOTE | 2024-07-15 14:33 | PC.SS ---
Follow up note: SS called multiple times [facility] directly to follow up non auth. SS spoke to Beverley who states she was able to review my information and is willing to provide a verbal auth to facility until they can finalize the written authorization. SS connected her to Evelina @ [employer]. SS received call that we set up patient for discharge. 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
== END 2024-07-15 17:21 | disposition skilled nursing facility (03) | DRG 242 ==
LOC: SERX 02:59 → SERHOLD 03:35 → S3SX 05:00
PROVIDERS: Specialist; Student in an Organized Health Care Education/Training Program; Admitting Provider Internal Medicine; Emergency Provider Student in an Organized Health Care Education/Training Program; PCP Hospitalist; Visit Provider Internal Medicine
PROC: 0DJ08ZZ Inspection of Upper Intestinal Tract, Via Natural or Artificial Opening Endoscopic (ICD-10-PCS; CPT 43239; principal; 2024-07-10 16:30)
DX: K22.11 Ulcer of esophagus with bleeding (principal); I69.354 Hemiplegia and hemiparesis following cerebral infarction affecting left non-dominant side; K29.81 Duodenitis with bleeding; F15.10 Other stimulant abuse, uncomplicated; K29.71 Gastritis, unspecified, with bleeding; I10 Essential (primary) hypertension; N17.9 Acute kidney failure, unspecified; F17.210 Nicotine dependence, cigarettes, uncomplicated; D72.829 Elevated white blood cell count, unspecified; Z79.02 Long term (current) use of antithrombotics/antiplatelets; Z79.82 Long term (current) use of aspirin; Z79.899 Other long term (current) drug therapy; Z91.148 Patient's other noncompliance with medication regimen for other reason; Z87.19 Personal history of other diseases of the digestive system
CPT/HCPCS: 36415; 71045; 74176; 80048; 80053; 80061; 80074; 80076; 81001; 83605; 83735; 84100; 84145; 84443; 85014; 85018; 85025; 85610; 85730; 87081; 93005; 93225; 96360; 96374; 96375; 97162; 99285; J1200; J1756; J2060; J2250; J2405; J2470; J3010; J3475; J3490; J7120; A9270; J1920